=== PATIENT | male | born 1960 | race Caucasian/White ===

== ENCOUNTER → 2018-01-29 | Outpatient (CLI) | payer OTHER | LOC: M RAD 10:11 | DX: N50.819 Testicular pain, unspecified (principal) | CPT/HCPCS: 76870 ==

== ENCOUNTER 2018-07-26 18:56 | Emergency (ER) | payer OTHER ==
[~2018-07-26] VITALS: Ht 188 cm; Wt 75.0 kg
[~2018-07-26 18:56] MED LIST: /ACETCOD2T PO; /HYDR10T PO; /INSULEV SQ; /ONDA4TA PO; /PREG50CA PO; ACET1TAB16 PO; ACTO30TA15 PO; AMBI10TA PO; ASPI1TAB PO; ASPI81TA7 PO; ASPI81TA83 PO; CLINDAMYCIN OR; CRES10TA32 PO; CRES5TAB PO; CYMB1CAP PO; CYMB60CA3 PO; GABAPENTIN PO; HYDR50TA8 PO; HYDRO50TAB PO; INSUH10VL SC; INSULANT SC; LISI-542 PO; LISI5TAB PO; NEUR300C PO; NICODIS TD; NOVOLOG100 MG/ML SC; REGL5TAB2 PO; TYLENOL #3 OR; VIST50CA PO; ZOFR4TAB16 PO; [UNRECOGNIZED DRUG - REMARK]
[2018-07-26] MEDS ORDERED: TOUJ1.2I (19:02)
[2018-07-26] MEDS ORDERED: DULO30CA PO (19:02)
[2018-07-26] MEDS ORDERED: ZOLP10TA2 (19:03)
[2018-07-26] MEDS ORDERED: ATOR1TAB19 (19:03)
[2018-07-26] MEDS ORDERED: NS 1,000 ML IV ONE ×3 (19:30→23:15)
[2018-07-26] MEDS ORDERED: HumuLIN R (REGULAR) INSULIN (NovoLIN R) **100U/ML** PER UNIT IV ONE (19:30)
--- NOTE | 2018-07-26 19:47 | REP ---
Clinical: Orbital headache and dizziness . Comparison: None . Findings: The ventricles, sulci, and cisterns are normal in position and appearance. Salazar-white differentiation is maintained. No acute intracranial hemorrhage, mass/mass effect, pathology or trauma/injury. No evidence for acute infarction. No extra-axial fluid collection. Calvarium is intact. Mild mucoperiosteal changes to the ethmoid sinuses. Impression: No evidence for acute intracranial pathology or trauma/injury. Electronically Signed by Neri Acosta MD 07/26/2018 07:38 P
[2018-07-26 19:56] LABS: VENOUS BASE EXCESS -2.9 (-2.0-2.0); VENOUS HCO3 23.2 MEQ/L (23.0-27.0); VENOUS O2 SATURATION 41.6 % (60.0-80.0); VENOUS PARTIAL PRESSURE CO2 45.4 mmHg (38.0-50.0); VENOUS PARTIAL PRESSURE O2 26.6 mmHg (30.0-50.0); VENOUS PH 7.327 UNITS (7.330-7.430); VENOUS STANDARD HCO3 20.6 MEQ/L; VENOUS TOTAL CO2 24.6 MEQ/L (24.0-28.0)
[2018-07-26 20:03] LABS: BASO # 0.1 10^3/uL (0.0-0.2); BASO % 0.8 % (0.0-1.0); EOS # 0.2 10^3/uL (0.0-0.50); EOS % 2.6 % (0.0-3.0); HEMATOCRIT 43.7 % (42.0-52.0); HEMOGLOBIN 14.8 g/dl (13.5-17.5); LYMPH # 1.9 10^3/uL (1.5-4.5); MEAN CORPUSCULAR HGB CONC 33.9 g/dl (32.0-36.5); MEAN CORPUSCULAR VOLUME 88.6 fl (80.0-96.0); MONO # 0.4 10^3/uL (0.0-0.8); MONO % 6.6 % (0.0-5.0); NEUTROPHILS # 3.7 10^3/uL (1.8-7.7); NEUTROPHILS % 59.7 % (36.0-66.0); PLATELET COUNT, AUTOMATED 288 10^3/uL (150-450); RED BLOOD COUNT 4.93 10^6/uL (4.30-6.10); WHITE BLOOD COUNT 6.2 10^3/uL (4.0-10.0)
--- NOTE | 2018-07-26 20:11 | REP ---
Clinical: Back pain . Comparison: 03/09/2015 . Technique: PA and lateral. Findings: The mediastinum and cardiac silhouette are normal. The lung atkinson are clear and without acute consolidation, effusion, or pneumothorax. The skeletal structures are intact and normal. Impression: 1. No acute cardiopulmonary process. Electronically Signed by Neri Acosta MD 07/26/2018 08:03 P
[2018-07-26 20:37] LABS: BLOOD UREA NITROGEN 12 MG/DL (7-18); CALCIUM LEVEL 8.8 MG/DL (8.5-10.1); CARBON DIOXIDE LEVEL 27 MEQ/L (21-32); CHLORIDE LEVEL 100 MEQ/L (98-107); CK-MB VALUE MASS < 1.0 NG/ML (<3.6); CPK CREATINE PHOSPHOKINASE 47 U/L (39-308); CREATININE FOR GFR 0.86 MG/DL (0.70-1.30); ETHYL ALCOHOL (ETHANOL) < 0.003 % (0.000-0.010); GLOMERULAR FILTRATION RATE > 60.0 (>56); GLUCOSE, FASTING 362 MG/DL (70-100); MB/CK RELATIVE INDEX 2.13 (< OR =4); POTASSIUM SERUM 4.5 MEQ/L (3.5-5.1); SODIUM LEVEL 135 MEQ/L (136-145); TROPONIN I < 0.02 NG/ML (< 0.10)
[2018-07-26] MEDS ORDERED: MECLIZINE 25 MG TABLET PO ONE (20:45)
[2018-07-26] MEDS ORDERED: METOCLOPRAMIDE INJ 10MG/2ML VIAL (J2765) IV ONE (20:45)
[2018-07-26] MEDS ORDERED: diazePAM 5 MG TAB PO ONE (22:00)
[2018-07-26 22:10] LABS: HEMOGLOBIN A1c 12.4 %
[2018-07-26 23:36] VITALS: BP 148/86
[2018-07-27] MEDS ORDERED: MECL-68 PO (00:02)
[2018-07-27] MEDS ORDERED: REGL10TA6 PO (00:02)
[2018-07-27] MEDS ORDERED: VALI5TAB PO (00:02)
--- NOTE | 2018-07-27 20:01 | ECGEPIP ---
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
== END 2018-07-27 00:12 | disposition home or self-care (01) ==
LOC: M ED 18:56
DX: I95.1 Orthostatic hypotension (principal); E86.0 Dehydration; E10.65 Type 1 diabetes mellitus with hyperglycemia; I10 Essential (primary) hypertension; E78.5 Hyperlipidemia, unspecified; G89.29 Other chronic pain; M54.9 Dorsalgia, unspecified; E10.40 Type 1 diabetes mellitus with diabetic neuropathy, unspecified; K31.84 Gastroparesis; Z72.0 Tobacco use; Z79.82 Long term (current) use of aspirin; Z79.4 Long term (current) use of insulin; Z79.899 Other long term (current) drug therapy; Z88.8 Allergy status to other drugs, medicaments and biological substances
CPT/HCPCS: 70450; 71046; 80048; 80320; 81001; 82550; 82553; 82803; 83036; 85025; 93005; 96361; 96374; 96375; 99284; J2765

== ENCOUNTER 2019-05-11 19:34 | Inpatient (IN) | payer OTHER ==
[~2019-05-11] VITALS: Ht 188 cm; Wt 75.0 kg
[~2019-05-11 19:34] MED LIST changes: -/ACETCOD2T PO; -/INSULEV SQ; -/ONDA4TA PO; -/PREG50CA PO; +ACET1TAB15 PO; -ASPI1TAB PO; +ASPI81TA26 PO; +ATOR1TAB19 PO; +CRES10TA PO; -CRES10TA32 PO; +DULO30CA9 PO; +HYDR-4274 PO; -HYDRO50TAB PO; +LEVE0.01 SQ; +LYRI50CA PO; +MECL-68 PO; +NICO21DI34 TD; -NICODIS TD; +ONDA-1 PO; +REGL10TA6 PO; +TOUJ1.2I; +VALI5TAB PO; +ZOLP10TA2
[2019-05-11 20:16] LABS: VENOUS BASE EXCESS -14.7 (-2.0-2.0); VENOUS HCO3 13.9 MEQ/L (23.0-27.0); VENOUS O2 SATURATION 55.2 % (60.0-80.0); VENOUS PARTIAL PRESSURE CO2 41.9 mmHg (38.0-50.0); VENOUS PARTIAL PRESSURE O2 30.8 mmHg (30.0-50.0); VENOUS PH 7.139 UNITS (7.330-7.430); VENOUS STANDARD HCO3 12.8 MEQ/L; VENOUS TOTAL CO2 15.2 MEQ/L (24.0-28.0)
[2019-05-11 20:22] LABS: BASO % 0.5 % (0.0-1.0); EOS # 0.1 10^3/uL (0.0-0.5); EOS % 0.8 % (0.0-3.0); HEMATOCRIT 48.4 % (42.0-52.0); LYMPH # 2.1 10^3/uL (1.5-5.0); LYMPH % 26.6 % (24.0-44.0); MEAN CORPUSCULAR HEMOGLOBIN 30.2 pg (27.0-33.0); MEAN CORPUSCULAR HGB CONC 33.1 g/dl (32.0-36.5); MEAN CORPUSCULAR VOLUME 91.5 fl (80.0-96.0); MONO # 0.6 10^3/uL (0.0-0.8); MONO % 7.3 % (0.0-5.0); NEUTROPHILS % 64.4 % (36.0-66.0); PLATELET COUNT, AUTOMATED 393 10^3/uL (150-450); RED BLOOD COUNT 5.29 10^6/uL (4.30-6.10); WHITE BLOOD COUNT 7.8 10^3/uL (4.0-10.0)
[2019-05-11] MEDS ORDERED: NS 1,000 ML IV ONE (20:30)
--- NOTE | 2019-05-11 20:36 | ECGEPIP ---
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
[2019-05-11 20:43] LABS: ACETONE/KETONE > 46.00 MG/DL (<2.81); ALBUMIN 4.5 GM/DL (3.2-5.2); ALT/SGPT 20 U/L (12-78); BILIRUBIN,TOTAL 0.6 MG/DL (0.2-1.0); BLOOD UREA NITROGEN 18 MG/DL (7-18); CALCIUM LEVEL 9.4 MG/DL (8.5-10.1); CARBON DIOXIDE LEVEL 16 MEQ/L (21-32); CHLORIDE LEVEL 101 MEQ/L (98-107); CREATININE FOR GFR 1.21 MG/DL (0.70-1.30); GLOMERULAR FILTRATION RATE > 60.0 (>56); GLUCOSE, FASTING 318 MG/DL (70-100); LIPASE 52 U/L (73-393); POTASSIUM SERUM 4.9 MEQ/L (3.5-5.1); SODIUM LEVEL 132 MEQ/L (136-145); TOTAL PROTEIN 7.5 GM/DL (6.4-8.2)
[2019-05-11 21:22] LABS: HEMOGLOBIN A1c 12.5 %
[2019-05-11 21:26] LABS: CK-MB VALUE MASS < 1.0 NG/ML (<3.6); CPK CREATINE PHOSPHOKINASE 45 U/L (39-308); MB/CK RELATIVE INDEX 2.22 (< OR =4); TROPONIN I < 0.02 NG/ML (< 0.10)
[2019-05-11] MEDS ORDERED: INSULIN HUMAN REGULAR 100 UNITS in NS 99 ML IV SCH (21:43)
[2019-05-11] MEDS ORDERED: D5W/0.45% SODIUM CHLORIDE 1,000 ML IV SCH ×2 (21:43→22:57)
[2019-05-11] MEDS ORDERED: INSULIN IV RATE CHANGE DOCUMENTATION ML/HR XX SCH (21:45)
[2019-05-11] MEDS ORDERED: MECL-86 PO (22:13)
[2019-05-11] MEDS ORDERED: BASA100I SC (22:13)
[2019-05-11] MEDS ORDERED: ACETAMINOPHEN TAB 650MG DOSE (2X325MG) PO PRN (22:30)
--- NOTE | 2019-05-11 23:05 | HPEPDOC ---
[facility] Medical History & Physical Date of Admission May 11, 2019 Date of Service: May 11, 2019 Primary Care Physician: Kory De Oliveira Attending Physician: SARAH SU MD History and Physical TIME OF SERVICE: 1035PM CC time 60 min CHIEF COMPLAINT: not feeling well HISTORY OF PRESENT ILLNESS: This is a 58-year-old male who presents with complaints of not feeling well, th at began earlier on today. Specifically, he has a runny nose, chest pain, back pain, headache, abdominal pain with nonbloody emesis, chills increased thirst, and increased urination. He denies having a fever, denies having diarrhea, denies having constipation, denies missing any of his doses of insulin or having any sick contacts. He has been admitted for DKA about 4 or 5 times in the past. Per discussion with the ED attending his labs appear to be consistent with DKA. History of insulin drip and IV fluids. REVIEW OF SYSTEMS: 12 point review of systems negative except as listed in HPI PAST MEDICAL/ SURGICAL HISTORY: Poorly controlled IDDM1 complicated by neuropathy and gastroparesis Dyslipidemia. Insomnia Chronic back pain status post laminectomy. Status post bilateral hernia repair SOCIAL HISTORY: Smoker FAMILY HISTORY: Leukemia. Bladder cancer ALLERGIES: Please see below. HOME MEDICATIONS: Please see below. PHYSICAL EXAMINATION: VITAL SIGNS: Please see below. GENERAL APPEARANCE: Slim build, well-developed, not in apparent distress HEENT: Normocephalic, atraumatic, mucous membranes dry CARDIOVASCULAR: Regular rate and rhythm. No murmurs, rubs or gallops LUNGS: Clear to auscultation bilaterally on room air ABDOMEN: Bowel sounds hypoactive. The abdomen is soft and nontender on palpation MUSCULOSKELETAL: Range of motion is intact in all 4 extremities is no lower extremity edema NEUROLOGICAL: Cranial nerves II-12 grossly intact. Speech is not dysarthric PSYCHIATRIC: Alert and oriented to person, place and time, able to understand and follow commands LABORATORY DATA: See below. IMAGING: Chest x-ray unremarkable but the final read is pending. ASSESSMENT: Mr. Castaneda is a 58-year-old male with a past medical history of poorly controlled insulin-dependent diabetes, chronic hypertension, chronic back pain, and insomnia who is admitted for management of of DKA. PLAN: 1. DKA May be due to an upper respiratory tract infection vs noncompliance PH is 7.139, glucose is 318, carbon dioxide of 16, anion gap is 15, urine is positive for ketones, beta hydroxybutyrate > 46 His WBC count, chest x-ray, and UA are revealing. Plan: Admit to ICU for management of DKA/follow-up influenza panel, serum ETHO, Drug screen & blood cx/ NPO pending resolution of DKA / Insulin drip per protocol/ IVF / f/u accuchecks Q1H, BMP Q4H, venous PH Q4H, osmol Q4H, Mag Q4H, phosp Q4H / f/u A1C / hold home anti-glycemic agents / DM education 2. Chest Pain / Back pain Plan: telemetry f/u Trop and EKG /ASA 3.Pseudohyponatremia related to hypoglycemia. Plan: Follow-up repeat BMP after IV fluids 4. Tobacco abuse. Plan: Refused nicotine patch/smoking cessation education 5. Chronic back pain Plan: Resume home meds after after DKA has resolved DVT prophylaxis with Lovenox. Disposition pending clinical course LATE ENTRY #Hypophosphatemia repeat BMP reviewed Plan: replete lytes & f/u BMP at 3AM Vital Signs Vital Signs Date Time Temp Pulse Resp B/P (MAP) Pulse Ox O2 Delivery O2 Flow Rate FiO2 05/11/19 22:00 78 112/58 (76) 100 Room Air 05/11/19 19:34 98.0 18 Laboratory Data Labs 24H Laboratory Tests 2 05/11/19 19:57: Immature Granulocyte % (Auto) 0.4, White Blood Count 7.8, Red Blood Count 5.29, Hemoglobin 16.0, Hematocrit 48.4, Mean Corpuscular Volume 91.5, Mean Corpuscular Hemoglobin 30.2, Mean Corpuscular Hemoglobin Concent 33.1, Red Cell Distribution Width 12.4, Platelet Count 393, Neutrophils (%) (Auto) 64.4, Lymphocytes (%) (Auto) 26.6, Monocytes (%) (Auto) 7.3H, Eosinophils (%) (Auto) 0.8, Basophils (%) (Auto) 0.5, Neutrophils # (Auto) 5.0, Lymphocytes # (Auto) 2.1, Monocytes # (Auto) 0.6, Eosinophils # (Auto) 0.1, Basophils # (Auto) 0.0, Nucleated Red Blood Cells % (auto) 0.0, Urine Color STRAW, Urine Appearance CLEAR, Urine pH 5.0, Urine Specific [place] 1.024, Urine Protein 1+H, Urine Glucose (UA) 3+H, Urine Ketones 2+H, Urine Blood NEGATIVE, Urine Nitrite NEGATIVE, Urine Bilirubin NEGATIVE, Urine Urobilinogen 0.2, Urine Leukocyte Esterase NEGATIVE, Urine WBC (Auto) 1, Urine RBC (Auto) 2, Urine Hyaline Casts (Auto) 7, Urine Bacteria (Auto) NEGATIVE, Urine Squamous Epithelial Cells 0, Urine Sperm (Auto) , Blood Gas Bicarbonate Standard 12.8, Venous Blood pH 7.139L, Venous Blood Partial Pressure CO2 41.9, Venous Blood Partial Pressure O2 30.8, Venous Blood Total Carbon Dioxide 15.2L, Venous Blood HCO3 13.9L, Venous Blood Oxygen Saturation 55.2L, Venous Blood Base Excess -14.7L, Anion Gap 15, Glomerular Filtration Rate > 60.0, Estimated Mean Plasma Glucose 312H, Hemoglobin A1c 12.5, Blood Urea Nitrogen 18, Creatinine 1.21, Sodium Level 132L, Potassium Level 4.9, Chloride Level 101, Carbon Dioxide Level 16L, Calcium Level 9.4, Aspartate Amino Transf (AST/SGOT) 7, Alanine Aminotransferase (ALT/SGPT) 20, Total Creatine Kinase 45, Alkaline Phosphatase 95, Total Bilirubin 0.6, Total Protein 7.5, Albumin 4.5, Creatine Kinase MB < 1.0, Creatine Kinase MB Relative Index 2.22, Troponin I < 0.02, Albumin/Globulin Ratio 1.50, Lipase 52L, B-Hydroxybutyrate > 46.00H 05/11/19 20:00: Bedside Glucose (Misc Panel) 316H 05/11/19 21:29: Bedside Glucose (Misc Panel) 287H 05/11/19 22:05: Bedside Glucose (Misc Panel) 273H CBC/BMP Laboratory Tests 05/11/19 19:57 Red Blood Count 5.29, Mean Corpuscular Volume 91.5, Mean Corpuscular Hemoglobin 30.2, Mean Corpuscular Hemoglobin Concent 33.1, Red Cell Distribution Width 12.4, Neutrophils (%) (Auto) 64.4, Lymphocytes (%) (Auto) 26.6, Monocytes (%) (Auto) 7.3 H, Eosinophils (%) (Auto) 0.8, Basophils (%) (Auto) 0.5, Neutrophils # (Auto) 5.0, Lymphocytes # (Auto) 2.1, Monocytes # (Auto) 0.6, Eosinophils # (Auto) 0.1, Basophils # (Auto) 0.0, Calcium Level 9.4, Aspartate Amino Transf (AST/SGOT) 7, Alanine Aminotransferase (ALT/SGPT) 20, Total Creatine Kinase 45, Alkaline Phosphatase 95, Total Bilirubin 0.6, Total Protein 7.5, Albumin 4.5 Home Medications Scheduled Aspirin (Aspirin EC) 81 Mg Tab, 81 MG PO DAILY Atorvastatin Calcium (Atorvastatin Calcium) 10 Mg Tab, 10 MG PO DAILY Duloxetine Hcl (Cymbalta) 60 Mg Cap, 60 MG PO DAILY Duloxetine Hcl (Duloxetine HCl) 30 Mg Cap, 30 MG PO QPM Insulin Glargine,Hum.rec.anlog (Basaglar Kwikpen U-100) 100 Unit/1 Ml Insuln.pe n, 65 UNIT SC DAILY Insulin Human Lispro (Novolog) 100 U/Ml Inj, 1 DOSE SC AC PER SLIDING SCALE Lisinopril (Lisinopril) 5 Mg Tab, 5 MG PO DAILY Metoclopramide Hcl (Reglan) 5 Mg Tab, 5 MG PO QID Zolpidem Tartrate (Ambien) 10 Mg Tab, 10 MG PO QHS Scheduled PRN Acetaminophen with Codeine (Acetaminophen-Cod #3 Tablet) 1 Tab Tab, 2 TAB PO Q4H PRN for PAIN Meclizine HCl (Meclizine HCl) 25 Mg Tablet, 25 MG PO TID PRN for NAUSEA OR VOMITING Allergies Coded Allergies: pregabalin (Verified Allergy, Unknown, 05/11/19) A-FIB/CHADSVASC A-FIB History Current/History of A-Fib/PAF?: No Current PO Anticoag Therapy: No SARAH SU MD May 11, 2019 23:05
[2019-05-11 23:13] LABS: VENOUS HCO3 13.1 MEQ/L (23.0-27.0); VENOUS O2 SATURATION 61.7 % (60.0-80.0); VENOUS PH 7.111 UNITS (7.330-7.430); VENOUS STANDARD HCO3 12.1 MEQ/L; VENOUS TOTAL CO2 14.4 MEQ/L (24.0-28.0)
[2019-05-11] MEDS ORDERED: ASPIRIN 81 MG CHEW TABLET PO ONE (23:15)
[2019-05-12] VITALS (11 sets, daily range): BP systolic 84–123; BP diastolic 54–76
[2019-05-12 00:19] LABS: BLOOD UREA NITROGEN 17 MG/DL (7-18); CALCIUM LEVEL 8.6 MG/DL (8.5-10.1); CARBON DIOXIDE LEVEL 19 MEQ/L (21-32); CHLORIDE LEVEL 108 MEQ/L (98-107); CREATININE FOR GFR 1.07 MG/DL (0.70-1.30); GLOMERULAR FILTRATION RATE > 60.0 (>56); GLUCOSE, FASTING 233 MG/DL (70-100); PHOSPHORUS LEVEL 1.9 MG/DL (2.5-4.9); POTASSIUM SERUM 4.2 MEQ/L (3.5-5.1); SODIUM LEVEL 136 MEQ/L (136-145); TROPONIN I < 0.02 NG/ML (< 0.10)
[2019-05-12] MEDS ORDERED: DEXTROSE 50% 50 ML SYRINGE IV PRN (00:45)
[2019-05-12] MEDS ORDERED: GLUCAGON FOR INJ 1 MG VIAL (J1610) SC PRN (00:45)
[2019-05-12] MEDS ORDERED: GLUCOSE 4 GM CHEW TABLET PO PRN (00:45)
[2019-05-12] MEDS ORDERED: MECLIZINE 25 MG TABLET PO PRN (01:00)
[2019-05-12] MEDS ORDERED: INSULIN HUMAN REGULAR 100 UNITS in NS 99 ML IV SCH (01:00)
[2019-05-12] MEDS: INSULIN IV RATE CHANGE DOCUMENTATION ML/HR XX SCH ×3 (01:16→06:00)
[2019-05-12 01:45] LABS: OSMOLALITY SERUM 296 MOSM/KG (275-295)
[2019-05-12] MEDS ORDERED: POTASSIUM PHOSPHATE INJ 30 MMOL in D5W 500 ML IV ONE (02:15)
[2019-05-12 03:07] LABS: VENOUS BASE EXCESS -9.1 (-2.0-2.0); VENOUS HCO3 16.3 MEQ/L (23.0-27.0); VENOUS O2 SATURATION 83.4 % (60.0-80.0); VENOUS PARTIAL PRESSURE O2 46.9 mmHg (30.0-50.0); VENOUS PH 7.298 UNITS (7.330-7.430); VENOUS TOTAL CO2 17.3 MEQ/L (24.0-28.0)
[2019-05-12 03:17] LABS: BLOOD UREA NITROGEN 18 MG/DL (7-18); CARBON DIOXIDE LEVEL 18 MEQ/L (21-32); CHLORIDE LEVEL 111 MEQ/L (98-107); CREATININE FOR GFR 0.86 MG/DL (0.70-1.30); GLOMERULAR FILTRATION RATE > 60.0 (>56); GLUCOSE, FASTING 174 MG/DL (70-100); MAGNESIUM LEVEL 1.9 MG/DL (1.8-2.4); POTASSIUM SERUM 3.7 MEQ/L (3.5-5.1); SODIUM LEVEL 139 MEQ/L (136-145); TROPONIN I < 0.02 NG/ML (< 0.10)
[2019-05-12] MEDS ORDERED: KCL 20MEQ IN D5/0.45NS 1000ML 1,000 ML IV SCH (04:00)
[2019-05-12 04:25] LABS: ETHYL ALCOHOL (ETHANOL) < 0.003 % (0.000-0.010)
[2019-05-12 04:40] LABS: AMPHETAMINES LEVEL URINE NEGATIVE (NEGATIVE); BARBITURATES URINE NEGATIVE (NEGATIVE); BENZODIAZEPINES URINE NEGATIVE (NEGATIVE); CANNABINOIDS URINE NEGATIVE (NEGATIVE); COCAINE METABOLITE URINE NEGATIVE (NEGATIVE); METHADONE URINE NEGATIVE (NEGATIVE); OPIATES URINE NEGATIVE (NEGATIVE); PHENCYCLIDINE URINE NEGATIVE (NEGATIVE)
[2019-05-12] MEDS: ACETAMINOPH W/CODEINE #3 TAB UD PO PRN ×3 (05:05→23:59)
[2019-05-12] MEDS: ENOXAPARIN 40 MG/0.4 ML SYRINGE (J1650) SC SCH (06:23)
[2019-05-12 07:00] LABS: VENOUS BASE EXCESS -7.1 (-2.0-2.0); VENOUS HCO3 19.8 MEQ/L (23.0-27.0); VENOUS O2 SATURATION 82.1 % (60.0-80.0); VENOUS PARTIAL PRESSURE CO2 45.3 mmHg (38.0-50.0); VENOUS PH 7.259 UNITS (7.330-7.430); VENOUS STANDARD HCO3 18.4 MEQ/L; VENOUS TOTAL CO2 21.2 MEQ/L (24.0-28.0)
[2019-05-12 07:06] LABS: HEMATOCRIT 38.5 % (42.0-52.0); MEAN CORPUSCULAR HEMOGLOBIN 30.2 pg (27.0-33.0); MEAN CORPUSCULAR HGB CONC 33.8 g/dl (32.0-36.5); MEAN CORPUSCULAR VOLUME 89.5 fl (80.0-96.0); WHITE BLOOD COUNT 5.2 10^3/uL (4.0-10.0)
[2019-05-12 07:11] LABS: PLATELET COUNT, AUTOMATED 269 10^3/uL (150-450)
[2019-05-12 07:42] LABS: OSMOLALITY SERUM 294 MOSM/KG (275-295)
[2019-05-12 07:47] LABS: BLOOD UREA NITROGEN 13 MG/DL (7-18); CALCIUM LEVEL 8.4 MG/DL (8.5-10.1); CARBON DIOXIDE LEVEL 22 MEQ/L (21-32); CHLORIDE LEVEL 108 MEQ/L (98-107); GLOMERULAR FILTRATION RATE > 60.0 (>56); GLUCOSE, FASTING 250 MG/DL (70-100); MAGNESIUM LEVEL 1.8 MG/DL (1.8-2.4); PHOSPHORUS LEVEL 3.4 MG/DL (2.5-4.9); POTASSIUM SERUM 4.3 MEQ/L (3.5-5.1); SODIUM LEVEL 137 MEQ/L (136-145); TROPONIN I < 0.02 NG/ML (< 0.10)
--- NOTE | 2019-05-12 07:54 | REP ---
Portable chest, nine L E p.m., single AP view with the patient sitting: Comparison is the PA and lateral chest dated 07/26/2018. The lung atkinson are clear. The cardiac size is normal. The stevie, mediastinum, and skeletal structures are unremarkable. Impression: Negative portable chest. There is no interval change. Electronically Signed by Tio Meadows MD 05/12/2019 07:45 A
[2019-05-12] MEDS: LISINOPRIL 5 MG TAB PO SCH (09:00)
--- NOTE | 2019-05-12 09:38 | IPNPDOC ---
Subjective Date Seen The patient was seen on 05/12/19. Subjective Chief Complaint/HPI Patient feeling better, lying in bed, offers no new complaints at the present time General: Denies: ROS Unobtainable, Chills, Night Sweats, Fatigue, Malaise, Normal Appetite, Other Symptoms Constitutional: Denies: Chills, Fever, Malaise, Night Sweats, Weakness, Fatigue, Weight Loss, Lethargy, Other Pulmonary: Denies: Dyspnea, Cough, Pleuritic Chest Pain, Other Symptoms Cardiovascular: Denies: Chest Pain, Palpitations, Orthopnea, Paroxysmal Noc. Dyspnea, Edema, Lt Headedness, Other Symptoms Gastrointestinal: Denies: Nausea, Vomiting, Abdominal Pain, Diarrhea, Constipation, Melena, Hematochezia, Other Symptoms Hematologic: Denies: Bruising, Bleeding Excessively, Petecchia, Purpura, Enlarged Lymph Nodes, Other Hematologic Endocrine: Denies: Polydipsia, Polyphagia, Polyuria, Heat Intolerance, Cold Intolerance, Other Endocrine Sx Musculoskeletal: Denies: Neck Pain, Back Pain, Shoulder Pain, Arm Pain, Hand Pain, Leg Pain, Foot Pain, Joint Pain, Muscle Pain, Spasms, Other Symptoms Neurological: Denies: Weakness, Numbness, Incoordination, Change in speech, Confusion, Seizures, Other Symptoms Objective Physical Examination General Exam: Positive: Alert, Cooperative Eye Exam: Positive: PERRLA, Conjunctiva & lids normal ENT Exam: Positive: Atraumatic Neck Exam: Positive: Supple Chest Exam: Positive: Clear to auscultation, Normal air movement Heart Exam: Positive: Rate Normal, Normal S1, Normal S2 Abdomen Exam: Positive: Normal bowel sounds, Soft, Tenderness Extremity Exam: Positive: Normal pulses Skin Exam: Positive: Nl turgor and temperature Neuro Exam: Positive: Strength at 5/5 X4 ext, Sensation Intact Assessment /Plan Problems (1) DKA (diabetic ketoacidoses) Status: Acute Problem Text: Patient's anion gap is closing and B hydroxy butyrate level is decreasing progressively Continue IV fluids, D5 half-normal saline at the present rate Continue insulin and 1 unit per hour until the blood level is under 200 for 2-3 hours Will restart home dose of levemir to 65 units daily at bedtime Started on diabetic diet Will change insulin to fingerstick coverage every before meals and at bedtime t his afternoon Continue home meds (2) Gastroparesis Onset Date: 01/19/2014 Status: Chronic Problem Text: Continue home meds (3) Diabetic neuropathy Onset Date: 01/19/2014 Status: Chronic Problem Text: Continue home meds (4) Hypercholesteremia Onset Date: 01/19/2014 Status: Chronic Problem Text: Continue home meds Plan/VTE VTE Prophylaxis Ordered?: Yes VS, I&O, 24H, Fishbone Vital Signs/I&O Vital Signs Date Time Temp Pulse Resp B/P (MAP) Pulse Ox O2 Delivery O2 Flow Rate FiO2 05/12/19 05:35 16 05/12/19 04:00 97.0 66 107/67 (80) 98 05/11/19 23:30 Room Air I&O- Last 24 Hours up to 6 AM 05/12/19 06:00 Intake Total 2610.0 ml Output Total 0 ml Balance 2610.0 ml Laboratory Data 24H LABS Laboratory Tests 2 05/11/19 19:57: Immature Granulocyte % (Auto) 0.4, White Blood Count 7.8, Red Blood Count 5.29, Hemoglobin 16.0, Hematocrit 48.4, Mean Corpuscular Volume 91.5, Mean Corpuscular Hemoglobin 30.2, Mean Corpuscular Hemoglobin Concent 33.1, Red Cell Distribution Width 12.4, Platelet Count 393, Neutrophils (%) (Auto) 64.4, Lymphocytes (%) (Auto) 26.6, Monocytes (%) (Auto) 7.3H, Eosinophils (%) (Auto) 0.8, Basophils (%) (Auto) 0.5, Neutrophils # (Auto) 5.0, Lymphocytes # (Auto) 2.1, Monocytes # (Auto) 0.6, Eosinophils # (Auto) 0.1, Basophils # (Auto) 0.0, Nucleated Red Blood Cells % (auto) 0.0, Urine Color STRAW, Urine Appearance CLEAR, Urine pH 5.0, Urine Specific [place] 1.024, Urine Protein 1+H, Urine Glucose (UA) 3+H, Urine Ketones 2+H, Urine Blood NEGATIVE, Urine Nitrite NEGATIVE, Urine Bilirubin NEGATIVE, Urine Urobilinogen 0.2, Urine Leukocyte Esterase NEGATIVE, Urine WBC (Auto) 1, Urine RBC (Auto) 2, Urine Hyaline Casts (Auto) 7, Urine Bacteria (Auto) NEGATIVE, Urine Squamous Epithelial Cells 0, Urine Sperm (Auto) , Blood Gas Bicarbonate Standard 12.8, Venous Blood pH 7.139L, Venous Blood Partial Pressure CO2 41.9, Venous Blood Partial Pressure O2 30.8, Venous Blood Total Carbon Dioxide 15.2L, Venous Blood HCO3 13.9L, Venous Blood Oxygen Saturation 55.2L, Venous Blood Base Excess -14.7L, Anion Gap 15, Glomerular Filtration Rate > 60.0, Estimated Mean Plasma Glucose 312H, Hemoglobin A1c 12.5, Blood Urea Nitrogen 18, Creatinine 1.21, Sodium Level 132L, Potassium Level 4.9, Chloride Level 101, Carbon Dioxide Level 16L, Calcium Level 9.4, Aspartate Amino Transf (AST/SGOT) 7, Alanine Aminotransferase (ALT/SGPT) 20, Total Creatine Kinase 45, Alkaline Phosphatase 95, Total Bilirubin 0.6, Total Protein 7.5, Albumin 4.5, Creatine Kinase MB < 1.0, Creatine Kinase MB Relative Index 2.22, Troponin I < 0.02, Albumin/Globulin Ratio 1.50, Lipase 52L, Urine Amphetamines Screen NEGATIVE, Urine Benzodiazepines Screen NEGATIVE, Urine Opiates Screen NEGATIVE, Urine Methadone Screen NEGATIVE, Urine Barbiturates Screen NEGATIVE, Urine Phencyclidine Screen NEGATIVE, Urine Cocaine Metabolite Screen NEGATIVE, Urine Cannabinoids Screen NEGATIVE, Ethyl Alcohol Level < 0.003, B-Hydroxybutyrate > 46.00H 05/11/19 20:00: Bedside Glucose (Misc Panel) 316H 05/11/19 21:29: Bedside Glucose (Misc Panel) 287H 05/11/19 22:05: Bedside Glucose (Misc Panel) 273H 05/11/19 23:07: Bedside Glucose (Misc Panel) 250H 05/11/19 23:09: Blood Gas Puncture Site UNKNOWN, Blood Gas Bicarbonate Standard 12.1, Venous Blood pH 7.111L, Venous Blood Partial Pressure CO2 42.0, Venous Blood Partial Pressure O2 37.0, Venous Blood Total Carbon Dioxide 14.4L, Venous Blood HCO3 13.1L, Venous Blood Oxygen Saturation 61.7, Venous Blood Base Excess -16.0L 05/11/19 23:40: Anion Gap 9, Glomerular Filtration Rate > 60.0, Osmolality 296H, Blood Urea Nitrogen 17, Creatinine 1.07, Sodium Level 136, Potassium Level 4.2, Chloride Level 108H, Carbon Dioxide Level 19L, Calcium Level 8.6, Phosphorus Level 1.9L, Magnesium Level 2.0, Troponin I < 0.02, B-Hydroxybutyrate 31.60H 05/12/19 00:16: Bedside Glucose (Misc Panel) 223H 05/12/19 01:09: Bedside Glucose (Misc Panel) 159H 05/12/19 02:10: Bedside Glucose (Misc Panel) 163H 05/12/19 02:45: Anion Gap 10, Glomerular Filtration Rate > 60.0, Osmolality 288, Blood Urea Nitrogen 18, Creatinine 0.86, Sodium Level 139, Potassium Level 3.7, Chloride Level 111H, Carbon Dioxide Level 18L, Calcium Level 8.0L, Phosphorus Level 2.0L, Magnesium Level 1.9, Troponin I < 0.02 05/12/19 02:46: Blood Gas Puncture Site UNKNOWN, Blood Gas Bicarbonate Standard 17.0, Venous Blood pH 7.298L, Venous Blood Partial Pressure CO2 34.0L, Venous Blood Partial Pressure O2 46.9, Venous Blood Total Carbon Dioxide 17.3L, Venous Blood HCO3 16.3L, Venous Blood Oxygen Saturation 83.4H, Venous Blood Base Excess -9.1L 05/12/19 02:53: Bedside Glucose (Misc Panel) 176H 05/12/19 04:08: Bedside Glucose (Misc Panel) 209H 05/12/19 04:54: Bedside Glucose (Misc Panel) 230H 05/12/19 06:16: Bedside Glucose (Misc Panel) 248H 05/12/19 06:54: Nucleated Red Blood Cells % (auto) 0.0, Blood Gas Puncture Site UNKNOWN, Blood Gas Bicarbonate Standard 18.4, Venous Blood pH 7.259L, Venous Blood Partial Pressure CO2 45.3, Venous Blood Partial Pressure O2 47.0, Venous Blood Total Carbon Dioxide 21.2L, Venous Blood HCO3 19.8L, Venous Blood Oxygen Saturation 82.1H, Venous Blood Base Excess -7.1L, Anion Gap 7L, Glomerular Filtration Rate > 60.0, Osmolality 294, Blood Urea Nitrogen 13, Creatinine 0.90, Sodium Level 137, Potassium Level 4.3, Chloride Level 108H, Carbon Dioxide Level 22, Calcium Level 8.4L, Phosphorus Level 3.4#, Magnesium Level 1.8, Troponin I < 0.02 05/12/19 07:32: Bedside Glucose (Misc Panel) 224H 05/12/19 08:08: Bedside Glucose (Misc Panel) 239H CBC/BMP Laboratory Tests 05/11/19 19:57 Red Blood Count 5.29, Mean Corpuscular Volume 91.5, Mean Corpuscular Hemoglobin 30.2, Mean Corpuscular Hemoglobin Concent 33.1, Red Cell Distribution Width 12.4, Neutrophils (%) (Auto) 64.4, Lymphocytes (%) (Auto) 26.6, Monocytes (%) (Auto) 7.3 H, Eosinophils (%) (Auto) 0.8, Basophils (%) (Auto) 0.5, Neutrophils # (Auto) 5.0, Lymphocytes # (Auto) 2.1, Monocytes # (Auto) 0.6, Eosinophils # (Auto) 0.1, Basophils # (Auto) 0.0, Calcium Level 9.4, Aspartate Amino Transf (AST/SGOT) 7, Alanine Aminotransferase (ALT/SGPT) 20, Total Creatine Kinase 45, Alkaline Phosphatase 95, Total Bilirubin 0.6, Total Protein 7.5, Albumin 4.5 05/11/19 23:40 Calcium Level 8.6 05/12/19 02:45 Calcium Level 8.0 L 05/12/19 06:54 Red Blood Count 4.30, Mean Corpuscular Volume 89.5, Mean Corpuscular Hemoglobin 30.2, Mean Corpuscular Hemoglobin Concent 33.8, Red Cell Distribution Width 12.4, Calcium Level 8.4 L CYRUS VALERO MD May 12, 2019 09:38
[2019-05-12] MEDS: DULoxetine 30 MG CAP (CYMBALTA) PO SCH (09:44)
[2019-05-12] MEDS: ATORVASTATIN 10 MG TAB PO SCH (09:45)
[2019-05-12] MEDS: ASPIRIN 81 MG ENTERIC TAB PO SCH (09:45)
[2019-05-12] MEDS: METOCLOPRAMIDE 5 MG TAB PO SCH ×4 (09:47→20:26)
[2019-05-12] MEDS ORDERED: NS 1,000 ML IV SCH (10:15)
[2019-05-12 10:58] LABS: VENOUS BASE EXCESS -8.8 (-2.0-2.0); VENOUS HCO3 17.6 MEQ/L (23.0-27.0); VENOUS O2 SATURATION 83.2 % (60.0-80.0); VENOUS PARTIAL PRESSURE CO2 39.6 mmHg (38.0-50.0); VENOUS PARTIAL PRESSURE O2 48.1 mmHg (30.0-50.0); VENOUS PH 7.265 UNITS (7.330-7.430); VENOUS STANDARD HCO3 17.2 MEQ/L; VENOUS TOTAL CO2 18.8 MEQ/L (24.0-28.0)
[2019-05-12 11:34] LABS: BLOOD UREA NITROGEN 13 MG/DL (7-18); CALCIUM LEVEL 8.4 MG/DL (8.5-10.1); CARBON DIOXIDE LEVEL 22 MEQ/L (21-32); CHLORIDE LEVEL 107 MEQ/L (98-107); CREATININE FOR GFR 0.82 MG/DL (0.70-1.30); GLOMERULAR FILTRATION RATE > 60.0 (>56); GLUCOSE, FASTING 192 MG/DL (70-100); MAGNESIUM LEVEL 1.9 MG/DL (1.8-2.4); POTASSIUM SERUM 3.8 MEQ/L (3.5-5.1); SODIUM LEVEL 135 MEQ/L (136-145)
[2019-05-12 11:38] LABS: PHOSPHORUS LEVEL 2.4 MG/DL (2.5-4.9)
[2019-05-12] MEDS: HumaLOG INSULIN (NovoLOG) PER UNIT SC SCH ×2 (12:20→17:33)
[2019-05-12] MEDS ORDERED: SLF 3 ML SYR IV PRN (14:00)
[2019-05-12] MEDS: SLF 3 ML SYR IV SCH ×2 (14:35→22:11)
[2019-05-12] MEDS ORDERED: HumaLOG INSULIN (NovoLOG) PER UNIT SC SCH (21:00)
[2019-05-12] MEDS ORDERED: LEVEMIR (INSULIN DETEMIR) 1 UNITS/0.01ML SC SCH (21:00)
[2019-05-12] MEDS ORDERED: DULoxetine 30 MG CAP (CYMBALTA) PO SCH (21:00)
[2019-05-12] MEDS ORDERED: zolPIDEM TARTRATE 5 MG TAB PO SCH (21:00)
[2019-05-13 02:00] VITALS: BP 118/60
[2019-05-13 06:00] VITALS: BP 115/71
[2019-05-13 06:07] LABS: BASO % 0.7 % (0.0-1.0); EOS # 0.2 10^3/uL (0.0-0.5); EOS % 3.8 % (0.0-3.0); HEMATOCRIT 37.4 % (42.0-52.0); HEMOGLOBIN 12.7 g/dl (13.5-17.5); LYMPH # 1.6 10^3/uL (1.5-5.0); LYMPH % 35.9 % (24.0-44.0); MEAN CORPUSCULAR HEMOGLOBIN 30.4 pg (27.0-33.0); MEAN CORPUSCULAR VOLUME 89.5 fl (80.0-96.0); MONO # 0.5 10^3/uL (0.0-0.8); MONO % 11.4 % (0.0-5.0); NEUTROPHILS # 2.2 10^3/uL (1.5-8.5); PLATELET COUNT, AUTOMATED 287 10^3/uL (150-450); RED BLOOD COUNT 4.18 10^6/uL (4.30-6.10); WHITE BLOOD COUNT 4.5 10^3/uL (4.0-10.0)
[2019-05-13 06:31] LABS: ALBUMIN 3.2 GM/DL (3.2-5.2); ALT/SGPT 15 U/L (12-78); BILIRUBIN,TOTAL 0.2 MG/DL (0.2-1.0); BLOOD UREA NITROGEN 11 MG/DL (7-18); CALCIUM LEVEL 8.3 MG/DL (8.5-10.1); CARBON DIOXIDE LEVEL 26 MEQ/L (21-32); CHLORIDE LEVEL 108 MEQ/L (98-107); GLOMERULAR FILTRATION RATE > 60.0 (>56); GLUCOSE, FASTING 166 MG/DL (70-100); SODIUM LEVEL 140 MEQ/L (136-145); TOTAL PROTEIN 6.1 GM/DL (6.4-8.2)
[2019-05-13] MEDS: SLF 3 ML SYR IV SCH ×2 (06:36→13:57)
[2019-05-13] MEDS: ENOXAPARIN 40 MG/0.4 ML SYRINGE (J1650) SC SCH (06:36)
[2019-05-13] MEDS: METOCLOPRAMIDE 5 MG TAB PO SCH ×2 (08:10→13:00)
[2019-05-13] MEDS: ASPIRIN 81 MG ENTERIC TAB PO SCH (08:10)
[2019-05-13] MEDS: ATORVASTATIN 10 MG TAB PO SCH (08:11)
[2019-05-13] MEDS: DULoxetine 30 MG CAP (CYMBALTA) PO SCH (08:11)
[2019-05-13 08:12] VITALS: BP 113/68
[2019-05-13] MEDS: LISINOPRIL 5 MG TAB PO SCH (08:12)
[2019-05-13] MEDS: HumaLOG INSULIN (NovoLOG) PER UNIT SC SCH ×2 (08:12→12:00)
[2019-05-13 14:00] VITALS: BP 120/68
--- NOTE | 2019-05-13 15:22 | DS.PDOC ---
Discharge Summary General Date of Admission May 11, 2019 at 22:16 Date of Discharge 05/13/2019 Discharge Summary PROCEDURES PERFORMED DURING STAY: None. ADMITTING DIAGNOSES: 1. DKA. DISCHARGE DIAGNOSES: 1. DKA. COMPLICATIONS/CHIEF COMPLAINT: Dka (Diabetic Ketoacidoses). HISTORY OF PRESENT ILLNESS: 58-year-old male with past medical history of diabetes, was admitted for DKA; he was initially admitted to the ICU with an insulin drip. He remained on the insulin drip until anion gap metabolic acidosis resolved. He was transferred to the regular floor after being placed on long- acting insulin. He reports complete resolution of symptoms, has no complaints at this time, tolerating diet, blood sugars within acceptable range. Patient is ambulating, denies any shortness of breath, chest pain, abdominal pain, nausea, vomiting, diarrhea or constipation. Patient is requesting to go home today. HOSPITAL COURSE: As per above. DISCHARGE MEDICATIONS: Please see below. ALLERGIES: Please see below. PHYSICAL EXAMINATION ON DISCHARGE: VITAL SIGNS: Please see below. GENERAL: No distress HEENT: Normocephalic, atraumatic, moist mucous membranes NECK: Supple CARDIOVASCULAR EXAMINATION: S1, S2, no murmurs appreciated RESPIRATORY EXAMINATION: Clear to auscultation, no wheezing ABDOMINAL EXAMINATION: Soft, nontender, nondistended, positive bowel sounds EXTREMITIES: Range of motion intact SKIN: No rash NEUROLOGICAL EXAMINATION:. Alert and oriented 3, no focal deficits PSYCHIATRIC EXAMINATION: Calm LABORATORY DATA: Please see below. PROGNOSIS: Good ACTIVITY: As tolerated. DIET: Consistent carbs DISCHARGE PLAN: Patient is to follow-up with endocrinology and PCP for further outpatient management and ways to prevent further episodes of DKA. DISPOSITION: Home. DISCHARGE INSTRUCTIONS: 1. Please follow-up with the assisted living administrator and primary care physician within one to 2 weeks. DISCHARGE CONDITION: Stable. TIME SPENT ON DISCHARGE: Greater than 27 minutes minutes. Vital Signs/I&Os Vital Signs Date Time Temp Pulse Resp B/P (MAP) Pulse Ox O2 Delivery O2 Flow Rate FiO2 05/13/19 14:00 97.2 90 16 120/68 (85) 99 05/11/19 23:30 Room Air I&O- Last 24 Hours up to 6 AM 05/13/19 06:00 Intake Total 3736 ml Output Total 1350 ml Balance 2386 ml Laboratory Data Labs 24H Laboratory Tests 2 05/12/19 17:17: Bedside Glucose (Misc Panel) 265H 05/12/19 20:09: Bedside Glucose (Misc Panel) 244H 05/12/19 23:49: Bedside Glucose (Misc Panel) 235H 05/13/19 02:36: Bedside Glucose (Misc Panel) 73 05/13/19 03:16: Bedside Glucose (Misc Panel) 76 05/13/19 04:01: Bedside Glucose (Misc Panel) 135H 05/13/19 05:05: Immature Granulocyte % (Auto) 0.2, White Blood Count 4.5, Red Blood Count 4.18L, Hemoglobin 12.7L, Hematocrit 37.4L, Mean Corpuscular Volume 89.5, Mean Corpuscular Hemoglobin 30.4, Mean Corpuscular Hemoglobin Concent 34.0, Red Cell Distribution Width 12.5, Platelet Count 287, Neutrophils (%) (Auto) 48.0, Lymphocytes (%) (Auto) 35.9, Monocytes (%) (Auto) 11.4H, Eosinophils (%) (Auto) 3.8H, Basophils (%) (Auto) 0.7, Neutrophils # (Auto) 2.2, Lymphocytes # (Auto) 1.6, Monocytes # (Auto) 0.5, Eosinophils # (Auto) 0.2, Basophils # (Auto) 0.0, Nucleated Red Blood Cells % (auto) 0.0, Anion Gap 6L, Glomerular Filtration Rate > 60.0, Blood Urea Nitrogen 11, Creatinine 0.80, Sodium Level 140, Potassium Level 4.0, Chloride Level 108H, Carbon Dioxide Level 26, Calcium Level 8.3L, Aspartate Amino Transf (AST/SGOT) 11, Alanine Aminotransferase (ALT/SGPT) 15, Alkaline Phosphatase 79, Total Bilirubin 0.2#, Total Protein 6.1L, Albumin 3.2#, Magnesium Level 2.0, Albumin/Globulin Ratio 1.10 05/13/19 11:26: Bedside Glucose (Misc Panel) 80 05/13/19 11:48: Bedside Glucose (Misc Panel) 86 CBC/BMP Laboratory Tests 05/13/19 05:05 Red Blood Count 4.18 L, Mean Corpuscular Volume 89.5, Mean Corpuscular Hemoglobin 30.4, Mean Corpuscular Hemoglobin Concent 34.0, Red Cell Distribution Width 12.5, Neutrophils (%) (Auto) 48.0, Lymphocytes (%) (Auto) 35.9, Monocytes (%) (Auto) 11.4 H, Eosinophils (%) (Auto) 3.8 H, Basophils (%) (Auto) 0.7, Neutrophils # (Auto) 2.2, Lymphocytes # (Auto) 1.6, Monocytes # (Auto) 0.5, Eosinophils # (Auto) 0.2, Basophils # (Auto) 0.0, Calcium Level 8.3 L, Aspartate Amino Transf (AST/SGOT) 11, Alanine Aminotransferase (ALT/SGPT) 15, Alkaline Phosphatase 79, Total Bilirubin 0.2 #, Total Protein 6.1 L, Albumin 3.2 # FSBS Laboratory Tests Test 05/12/19 17:17 05/12/19 20:09 05/12/19 23:49 05/13/19 02:36 Range/Units Bedside Glucose (Misc Panel) 265 244 235 73 70-105 MG/DL Test 05/13/19 03:16 05/13/19 04:01 05/13/19 11:26 05/13/19 11:48 Range/Units Bedside Glucose (Misc Panel) 76 135 80 86 70-105 MG/DL Discharge Medications Scheduled Aspirin (Aspirin EC) 81 Mg Tab, 81 MG PO DAILY, (Reported) Atorvastatin Calcium (Atorvastatin Calcium) 10 Mg Tab, 10 MG PO DAILY, (Reported) Duloxetine Hcl (Cymbalta) 60 Mg Cap, 60 MG PO DAILY, (Reported) Duloxetine Hcl (Duloxetine HCl) 30 Mg Cap, 30 MG PO QPM, (Reported) Insulin Glargine,Hum.rec.anlog (Basaglar Kwikpen U-100) 100 Unit/1 Ml Insuln.pen, 65 UNIT SC DAILY, (Reported) Insulin Human Lispro (Novolog) 100 U/Ml Inj, 1 DOSE SC AC, (Reported) PER SLIDING SCALE Lisinopril (Lisinopril) 5 Mg Tab, 5 MG PO DAILY, (Reported) Metoclopramide Hcl (Reglan) 5 Mg Tab, 5 MG PO QID, (Reported) Zolpidem Tartrate (Ambien) 10 Mg Tab, 10 MG PO QHS, (Reported) Scheduled PRN Acetaminophen with Codeine (Acetaminophen-Cod #3 Tablet) 1 Tab Tab, 2 TAB PO Q4H PRN for PAIN, (Reported) Meclizine HCl (Meclizine HCl) 25 Mg Tablet, 25 MG PO TID PRN for NAUSEA OR VOMITING, (Reported) Allergies Coded Allergies: pregabalin (Verified Allergy, Unknown, 05/11/19) ABDIEL GIORDANO MD May 13, 2019 15:22
--- NOTE | 2019-05-15 11:52 | ECGEPIP ---
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
== END 2019-05-13 15:32 | disposition home or self-care (01) | DRG 420 ==
LOC: M ED 19:34 → M ED INP 22:16 → M ICU 05-12 00:04 → M MSPAV 05-12 23:42
PROVIDERS: ADMIT Internal Medicine; ATTEND Internal Medicine
DX: E10.10 Type 1 diabetes mellitus with ketoacidosis without coma (principal); E83.39 Other disorders of phosphorus metabolism; E10.43 Type 1 diabetes mellitus with diabetic autonomic (poly)neuropathy; Z79.4 Long term (current) use of insulin; Z79.899 Other long term (current) drug therapy; Z79.82 Long term (current) use of aspirin; Z88.8 Allergy status to other drugs, medicaments and biological substances; F17.200 Nicotine dependence, unspecified, uncomplicated; E87.1 Hypo-osmolality and hyponatremia; R07.9 Chest pain, unspecified; M54.5 Low back pain; E78.00 Pure hypercholesterolemia, unspecified

== ENCOUNTER 2019-08-30 21:05 | Inpatient (IN) | payer OTHER ==
[~2019-08-30] VITALS: Ht 188 cm; Wt 66.8 kg
[~2019-08-30 21:05] MED LIST changes: +BASA100I SC; -MECL-68 PO; +MECL-86 PO; +MECL1TAB31 PO
[2019-08-30] MEDS ORDERED: NS 1,000 ML IV ONE (21:45)
[2019-08-30 22:24] LABS: VENOUS BASE EXCESS -24.8 (-2.0-2.0); VENOUS HCO3 5.6 MEQ/L (23.0-27.0); VENOUS O2 SATURATION 85.4 % (60.0-80.0); VENOUS PARTIAL PRESSURE O2 59.4 mmHg (30.0-50.0); VENOUS PH 6.982 UNITS (7.330-7.430); VENOUS STANDARD HCO3 7.3 MEQ/L; VENOUS TOTAL CO2 6.3 MEQ/L (24.0-28.0)
[2019-08-30 22:35] LABS: BASO # 0.1 10^3/uL (0.0-0.2); BASO % 0.3 % (0.0-1.0); EOS % 0.1 % (0.0-3.0); HEMOGLOBIN 13.1 g/dl (13.5-17.5); LYMPH # 1.6 10^3/uL (1.5-5.0); LYMPH % 5.5 % (24.0-44.0); MEAN CORPUSCULAR HEMOGLOBIN 29.2 pg (27.0-33.0); MEAN CORPUSCULAR HGB CONC 30.5 g/dl (32.0-36.5); MONO # 1.7 10^3/uL (0.0-0.8); MONO % 5.5 % (0.0-5.0); NEUTROPHILS % 87.1 % (36.0-66.0); PLATELET COUNT, AUTOMATED 374 10^3/uL (150-450); RED BLOOD COUNT 4.48 10^6/uL (4.30-6.10)
[2019-08-30 22:53] LABS: CK-MB VALUE MASS 2.3 NG/ML (<3.6); CPK CREATINE PHOSPHOKINASE 91 U/L (39-308); MB/CK RELATIVE INDEX 2.53 (< OR =4); TROPONIN I < 0.02 NG/ML (< 0.10)
[2019-08-30 22:54] LABS: NEUTROPHILS # 26.2 10^3/uL (1.5-8.5)
[2019-08-30 22:55] LABS: ALBUMIN 4.4 GM/DL (3.2-5.2); BILIRUBIN,TOTAL 0.5 MG/DL (0.2-1.0); CALCIUM LEVEL 8.9 MG/DL (8.5-10.1); CREATININE FOR GFR 1.67 MG/DL (0.70-1.30); GLOMERULAR FILTRATION RATE 45.4 (>56); POTASSIUM SERUM 5.9 MEQ/L (3.5-5.1); TOTAL PROTEIN 7.4 GM/DL (6.4-8.2)
[2019-08-30 22:56] LABS: WHITE BLOOD COUNT 30.1 10^3/uL (4.0-10.0)
[2019-08-30] MEDS ORDERED: ONDANSETRON 4MG/2ML VIAL (J2405) IV ONE (23:00)
[2019-08-30] MEDS ORDERED: HumuLIN R (REGULAR) INSULIN (NovoLIN R) **100U/ML** PER UNIT IV ONE (23:00)
[2019-08-30] MEDS ORDERED: INSULIN HUMAN REGULAR 100 UNITS in NS 99 ML IV SCH (23:00)
[2019-08-30] MEDS ORDERED: INSULIN IV RATE CHANGE DOCUMENTATION ML/HR XX SCH (23:00)
[2019-08-30 23:10] LABS: HEMOGLOBIN A1c 12.6 %
[2019-08-30] MEDS ORDERED: ATOR1TAB21 PO (23:43)
[2019-08-31] VITALS (9 sets, daily range): BP systolic 96–115; BP diastolic 54–65
[2019-08-31] MEDS ORDERED: VANCOMYCIN HCL 1,000 MG, VIAL MATE ADAPTER 1 EACH in D5W 250 ML IV ONE ×3
[2019-08-31] MEDS ORDERED: NS 1,000 ML IV ONE
[2019-08-31] MEDS ORDERED: PIPERACILLIN/TAZOBACTAM SOD 3.375 GM in D5W MINI-BAG PLUS 50 ML IV ONE ×2
[2019-08-31 00:28] LABS: MAGNESIUM LEVEL 2.4 MG/DL (1.8-2.4)
[2019-08-31] MEDS ORDERED: NS 1,000 ML IV SCH (00:29)
[2019-08-31] MEDS ORDERED: ONDANSETRON 4MG/2ML VIAL (J2405) IV PRN (00:45)
[2019-08-31] MEDS ORDERED: INSULIN HUMAN REGULAR 100 UNITS in NS 99 ML IV SCH (02:00)
--- NOTE | 2019-08-31 02:07 | HPEPDOC ---
[facility] Medical History & Physical Date of Admission Aug 31, 2019 Date of Service: Aug 31, 2019 History and Physical CHIEF COMPLAINT: Nausea vomiting diarrhea and hyperglycemia HISTORY OF PRESENT ILLNESS: This is a 58-year-old male who presented to the ER for nausea, vomiting, diarrhea and hyperglycemia the last 48 hours. He was brought in via EMS and his daughter was at bedside to help with the story. He states the last 2 days hes noticed nausea, vomiting, diarrhea which he contr ibuted to a viral issue for his granddaughter was sick recently. He states he is compliant with all his medications until today due to the vomiting. He states he has nonbilious nonbloody vomiting and has experienced up to 8 episodes today. He also admits to having watery loose stools but is unable to quantify for me. He denies any blood in his stool or any black tarry consistency. Patient admits to having some abdominal pain especially the lower quadrant. He denies any fevers, chills, night sweats. He does endorse increased thirst and increased urination but no chest pain or shortness of breath. In the ER he was found to have a glucose of 738 with an anion gap of 26. His white count returned elevated at 30.1. He was given 1 dose of vancomycin and Zosyn in the ER and was started on insulin drip after getting 8 units of regular insulin. Hospitalist team was then called for admission for DKA. PAST MEDICAL HISTORY: 1. 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 Dyslipidemia 3. Insomnia 4. Chronic back pain 5. Depression 6. Hypertension HOME MEDICATIONS: Please see below. ALLERGIES: Please see below PAST SURGICAL HISTORY: 1. Laminectomy. 2. Bilateral Hernia repair SOCIAL HISTORY: Tobacco use: Current smoker. Denies sleeping ETOH: Occasionally, Illicit drug use: Denies, CODE STATUS: Full code FAMILY HISTORY: Reviewed and noncontributory. Positive for leukemia and bladder cancer REVIEW OF SYSTEMS: 10 systems reviewed and negative other than HPI PHYSICAL EXAMINATION: VITAL SIGNS: See below GENERAL: Pleasant 78-year-old male laying in bed awake alert oriented speaking in complete sentences no acute distress but appears uncomfortable HEENT: Atraumatic normocephalic pupils equally round and reactive, goatee and place but membranes appear dry with no obvious skin breakdown CARDIOVASCULAR: S1 S2 regular no additional heart sounds appreciated. RESPIRATORY: Clear to auscultation bilaterally. ABDOMINAL: Hypoactive bowel sounds, soft nondistended but slightly tender to touch in the lower quadrants. No skin breakdown noted EXTREMITIES: No clubbing cyanosis or edema. Minimal healing skin abrasion appreciated on the shins bilaterally. But no open wounds or cellulitis noted. NEUROLOGICAL: no gross focal deficits appreciated PSYCHOLOGICAL: Appropriate LABORATORY DATA: See below. MICROBIOLOGY: Please see below. IMAGIN08/30/2019 Chest x-ray - official report currently pending. When reviewed by me, appears negative for any acute pathology. ASSESSMENT & PLAN: This is a 38-year-old male was presented with nausea vomiting diarrhea and hypoglycemia for last 48 hours. PROBLEMS: 1. Nausea, vomiting and diarrhea possibly secondary to DKA. Insulin drip per protocol, BMP every 4 hours, normal saline 200 mL per hour frontal FSBS is less than 250 and will transition to D5 half-normal saline until the gap is closed. Nothing by mouth diet. Zofran on board for nausea. 2. Leukocytosis. Unsure if this is reactive versus infectious. He is status post 1 dose of vancomycin and Zosyn in the ER there for is covered for the next 24 hours. Blood cultures 2 was ordered but they were drawn after the Vanco and Zosyn was given. Chest x-ray was negative pathology but official report is still pending. UA was negative. Cardiac markers 1 negative EKG showed sinus rhythm with no new changes. CT abdomen and pelvis with IV contrast, GI panel and repeat lactic acid ordered. Patient does take prednisone outpatient for his chronic back pain who was recently given a three-day course of by mouth steroids as well as a prednisone shot a couple weeks ago even though its been a while can possibly contribute to leukocytosis. We will trend his WBC and watch him clinically. 3. Pseudohyponatremia secondary to hyperglycemia. Corrected sodium is 138. 4. Hyperlipidemia. Well hold atorvastatin while nothing by mouth. 5. Chronic back pain. Will hold home acetaminophen with codeine while nothing by mouth 6. Depression. We will hold home duloxetine 60 mg Daily and 30mg QPM until DKA has resolved 7. Gastroparesis well hold home Reglan until DKA has resolved 8. Hypertension. Hold home lisinopril DVT PROPHYLAXIS: Heparin DISPOSITION: At least 2 midnights Vital Signs Vital Signs Date Time Temp Pulse Resp B/P (MAP) Pulse Ox O2 Delivery O2 Flow Rate FiO2 08/31/19 01:22 98.0 19 Room Air 08/31/19 01:20 96 100 08/31/19 01:16 111/69 (83) Laboratory Data Labs 24H Laboratory Tests 2 08/30/19 22:07: POC Glucose (Misc Panel) > 700*H, POC Sodium (Misc Panel) 125L, POC Potassium (Misc Panel) 6.0H, POC Chloride (Misc Panel) 100, POC Total CO2 (Misc Panel) 8.0L, POC Blood Urea Nitrogen (Misc Panel 32H, POC Ionized Calcium (Misc Panel) 5.0, POC Lactate (Misc Panel) 2.55*H, POC Creatinine (Misc Panel) 1.1, POC Hematocrit (Misc Panel) 44.0 08/30/19 22:14: Total Creatine Kinase 91, Creatine Kinase MB 2.3, Creatine Kinase MB Relative Index 2.53, Troponin I < 0.02 08/30/19 22:15: Immature Granulocyte % (Auto) 1.5, Neutrophils (%) (Auto) 87.1H, Lymphocytes (%) (Auto) 5.5L, Monocytes (%) (Auto) 5.5H, Eosinophils (%) (Auto) 0.1, Basophils (%) (Auto) 0.3, Neutrophils # (Auto) 26.2H, Lymphocytes # (Auto) 1.6, Monocytes # (Auto) 1.7H, Eosinophils # (Auto) 0.0, Basophils # (Auto) 0.1, Nucleated Red Blood Cells % (auto) 0.0, Blood Gas Bicarbonate Standard 7.3, Venous Blood pH 6.982L, Venous Blood Partial Pressure CO2 24.0L, Venous Blood Partial Pressure O2 59.4H, Venous Blood Total Carbon Dioxide 6.3L, Venous Blood HCO3 5.6L, Venous Blood Oxygen Saturation 85.4H, Venous Blood Base Excess -24.8L, Anion Gap 26H, Glomerular Filtration Rate 45.4L, Estimated Mean Plasma Glucose 315H, Hemoglobin A1c 12.6, Calcium Level 8.9, Magnesium Level 2.4, Total Bilirubin 0.5, Aspartate Amino Transf (AST/SGOT) 20, Alanine Aminotransferase (ALT/SGPT) 25, Alkaline Phosphatase 88, Total Protein 7.4, Albumin 4.4, Albumin/Globulin Ratio 1.47 08/30/19 22:25: Urine Color STRAW, Urine Appearance CLEAR, Urine pH 5.0, Urine Specific [place] 1.016, Urine Protein 1+H, Urine Glucose (UA) 3+H, Urine Ketones 2+H, Urine Blood 1+H, Urine Nitrite NEGATIVE, Urine Bilirubin NEGATIVE, Urine Urobilinogen 0.2, Urine Leukocyte Esterase NEGATIVE, Urine WBC (Auto) 1, Urine RBC (Auto) 4H, Urine Hyaline Casts (Auto) 1, Urine Bacteria (Auto) NEGATIVE, Urine Squamous Epithelial Cells 0, Urine Mucus (Auto) SMALL, Urine Sperm (Auto) SMALLH 08/30/19 23:59: Bedside Glucose (Misc Panel) 575*H 08/31/19 01:11: Bedside Glucose (Misc Panel) 478H CBC/BMP Laboratory Tests 08/30/19 22:15 Home Medications Scheduled Aspirin (Aspirin EC) 81 Mg Tab, 81 MG PO DAILY Atorvastatin Calcium (Atorvastatin Calcium) 20 Mg Tablet, 20 MG PO DAILY Duloxetine Hcl (Cymbalta) 60 Mg Cap, 60 MG PO DAILY Duloxetine Hcl (Duloxetine HCl) 30 Mg Cap, 30 MG PO QPM Insulin Glargine,Hum.rec.anlog (Basaglar Kwikpen U-100) 100 Unit/1 Ml Insuln.pen, 65 UNIT SC DAILY Insulin Human Lispro (Novolog) 100 U/Ml Inj, 1 DOSE SC AC PER SLIDING SCALE Lisinopril (Lisinopril) 5 Mg Tab, 5 MG PO DAILY Metoclopramide Hcl (Reglan) 5 Mg Tab, 5 MG PO QID Zolpidem Tartrate (Ambien) 10 Mg Tab, 10 MG PO QHS Scheduled PRN Acetaminophen with Codeine (Acetaminophen-Cod #3 Tablet) 1 Tab Tab, 2 TAB PO Q4H PRN for PAIN Meclizine HCl (Meclizine HCl) 25 Mg Tablet, 25 MG PO TID PRN for NAUSEA OR VOMITING Allergies Coded Allergies: pregabalin (Verified Allergy, Unknown, 05/11/19) GME ATTESTATION GME ATTESTATION My faculty preceptor for this patient encounter was physically present during the encounter and was fully available. All aspects of the patient interview, examination, medical decision making process, and medical care plan development were reviewed and approved by the faculty preceptor. The faculty preceptor is aware and concurs with the plan as stated in the body of this note and will attest to such by his/her cosignature. ATTENDING NOTE I agree with Dr. Hardin's assessment of Mr. Castaneda. Briefly, he is a 58 yo type 1 diabetic who presented with a fever in DKA, with a recent history of PO steroids for chronic back pain and possible sick contacts, whom we are admitting him to the ICU per DKA protocol on an insulin gtt, placed on empiric antibiotics with ongoing infectious workup. CORBIN HARDIN DO Aug 31, 2019 02:07 BENTON SANTIZO MD Aug 31, 2019 07:31
--- NOTE | 2019-08-31 02:21 | REPVR ---
PROCEDURE INFORMATION: Exam: CT Abdomen And Pelvis Without Contrast Exam date and time: 08/31/2019 1:57 AM Age: 58 years old Clinical indication: Vomiting; Abdominal pain; Generalized; Additional info: Abd pain, vomiting, elev wbc; Unclear pathology TECHNIQUE: Imaging protocol: Computed tomography of the abdomen and pelvis without contrast. Radiation optimization: All CT scans at this facility use at least one of these dose optimization techniques: automated exposure control; mA and/or kV adjustment per patient size (includes targeted exams where dose is matched to clinical indication); or iterative reconstruction. COMPARISON: No relevant prior studies available. FINDINGS: Lungs: No suspicious mass or airspace process in the visualized lung bases. Liver: Liver is decreased in density, consistent with fatty infiltration. Gallbladder and bile ducts: Gallbladder is present and shows no evidence of gallstone. Pancreas: Noncontrast pancreas shows no obvious mass or adjacent fluid. Spleen: Noncontrast spleen shows no obvious focal deformity. Adrenals: Adrenal glands are normal in appearance. Kidneys and ureters: Kidneys show no stone or hydronephrosis. Stomach and bowel: No evidence of small bowel obstruction. No evidence of acute diverticulitis. Appendix: Normal caliber appendix is identified, with no adjacent inflammation. Intraperitoneal space: No pneumoperitoneum. Vasculature: Atherosclerotic change present in the aorta, without aneurysm. Lymph nodes: No enlarged lymph nodes. Bladder: Urinary bladder appears normal. Reproductive: Unremarkable as visualized. Bones/joints: Chronic appearing L5 pars inter-articularis defects are present. Degenerative changes are seen in the lumbar spine with disc height loss, endplate osteophytes and hypertrophic facet arthropathy. Left femur neck osseous metaplasia changes, seen in patients with hip impingement Soft tissues: Fat-containing right inguinal hernia is present. Other findings: Limited evaluation without enteric or IV contrast. IMPRESSION: 1. No evidence of acute appendicitis, renal stone or obstruction and no explanation for vomiting and elevated white count 2. Hepatic steatosis. Electronically signed by: Jacobo Mancilla On 08/31/2019 02:21:13 AM
[2019-08-31 02:52] LABS: ACETONE/KETONE > 46.00 MG/DL (<2.81); BLOOD UREA NITROGEN 33 MG/DL (7-18); CARBON DIOXIDE LEVEL 9 MEQ/L (21-32); CHLORIDE LEVEL 105 MEQ/L (98-107); CREATININE FOR GFR 1.46 MG/DL (0.70-1.30); GLUCOSE, FASTING 373 MG/DL (70-100); POTASSIUM SERUM 4.1 MEQ/L (3.5-5.1); SODIUM LEVEL 134 MEQ/L (136-145)
[2019-08-31] MEDS: INSULIN IV RATE CHANGE DOCUMENTATION ML/HR XX SCH ×7 (03:09→16:11)
[2019-08-31] MEDS ORDERED: KCL 20MEQ IN 0.45NS 1000ML 1,000 ML IV SCH (03:45)
[2019-08-31 06:11] LABS: HEMATOCRIT 34.8 % (42.0-52.0); HEMOGLOBIN 11.4 g/dl (13.5-17.5); MEAN CORPUSCULAR HEMOGLOBIN 29.2 pg (27.0-33.0); MEAN CORPUSCULAR HGB CONC 32.8 g/dl (32.0-36.5); PLATELET COUNT, AUTOMATED 305 10^3/uL (150-450); RED BLOOD COUNT 3.91 10^6/uL (4.30-6.10); WHITE BLOOD COUNT 20.8 10^3/uL (4.0-10.0)
[2019-08-31 06:30] LABS: BLOOD UREA NITROGEN 25 MG/DL (7-18); CALCIUM LEVEL 8.1 MG/DL (8.5-10.1); CARBON DIOXIDE LEVEL 14 MEQ/L (21-32); CHLORIDE LEVEL 110 MEQ/L (98-107); CREATININE FOR GFR 1.24 MG/DL (0.70-1.30); GLOMERULAR FILTRATION RATE > 60.0 (>56); GLUCOSE, FASTING 209 MG/DL (70-100); MAGNESIUM LEVEL 2.1 MG/DL (1.8-2.4); POTASSIUM SERUM 4.5 MEQ/L (3.5-5.1); SODIUM LEVEL 137 MEQ/L (136-145)
[2019-08-31] MEDS: HEPARIN SOD (PORCINE) 5000 UNITS/ML VIAL (J1644 PER 1000UNITS) SC SCH ×2 (06:34→17:23)
--- NOTE | 2019-08-31 06:37 | ECGEPIP ---
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
[2019-08-31] MEDS: KCL 20MEQ IN D5/0.45NS 1000ML 1,000 ML IV SCH ×4 (08:28→23:30)
[2019-08-31] MEDS: ATORVASTATIN 20 MG TAB PO SCH (09:20)
[2019-08-31] MEDS: DULoxetine 30 MG CAP (CYMBALTA) PO SCH (09:20)
[2019-08-31] MEDS: ASPIRIN 81 MG ENTERIC TAB PO SCH (09:20)
[2019-08-31 10:32] LABS: BLOOD UREA NITROGEN 22 MG/DL (7-18); CALCIUM LEVEL 8.3 MG/DL (8.5-10.1); CARBON DIOXIDE LEVEL 21 MEQ/L (21-32); CHLORIDE LEVEL 109 MEQ/L (98-107); CREATININE FOR GFR 1.12 MG/DL (0.70-1.30); GLOMERULAR FILTRATION RATE > 60.0 (>56); GLUCOSE, FASTING 157 MG/DL (70-100); POTASSIUM SERUM 4.2 MEQ/L (3.5-5.1); SODIUM LEVEL 135 MEQ/L (136-145)
--- NOTE | 2019-08-31 10:33 | REP ---
AP PORTABLE CHEST: 08/30/2019. Comparison: 05/11/2019. Clinical history: Dyspnea. Hyperglycemia. Possible pneumonia. Findings: AP portable chest shows the lungs well inflated. CP angles are sharply defined without effusion. No lateral pleural thickening, apical scarring or pneumothorax. No consolidation, atelectasis or mass. The heart, mediastinal and hilar contours were unchanged. The aorta is calcified at the arch but without aneurysm. Airway midline. There are degenerative changes in the shoulders and spine. Impression: 1. No acute cardiopulmonary disease, stable chest. Electronically Signed by Bran Chu MD 08/31/2019 08:21 P
[2019-08-31] MEDS: METOCLOPRAMIDE 5 MG TAB PO SCH ×3 (11:15→20:19)
[2019-08-31] MEDS: ACETAMINOPHEN TAB 650MG DOSE (2X325MG) PO PRN ×3 (13:05→21:41)
[2019-08-31 14:43] LABS: BLOOD UREA NITROGEN 18 MG/DL (7-18); CALCIUM LEVEL 8.3 MG/DL (8.5-10.1); CARBON DIOXIDE LEVEL 18 MEQ/L (21-32); CHLORIDE LEVEL 110 MEQ/L (98-107); GLOMERULAR FILTRATION RATE > 60.0 (>56); GLUCOSE, FASTING 178 MG/DL (70-100); SODIUM LEVEL 136 MEQ/L (136-145)
[2019-08-31] MEDS ORDERED: DEXTROSE 50% 50 ML SYRINGE IV PRN (16:15)
[2019-08-31] MEDS ORDERED: GLUCAGON FOR INJ 1 MG VIAL (J1610) SC PRN (16:15)
[2019-08-31] MEDS ORDERED: GLUCOSE 4 GM CHEW TABLET PO PRN (16:15)
[2019-08-31] MEDS: HumaLOG INSULIN (NovoLOG) PER UNIT SC SCH ×2 (17:23→20:16)
[2019-08-31] MEDS: LEVEMIR (INSULIN DETEMIR) 1 UNITS/0.01ML SC SCH (20:19)
[2019-09-01] VITALS: BP 128/79
[2019-09-01] MEDS: KCL 20MEQ IN D5/0.45NS 1000ML 1,000 ML IV SCH ×2 (00:28→04:04)
[2019-09-01 04:00] VITALS: BP 133/79
[2019-09-01] MEDS: ACETAMINOPHEN TAB 650MG DOSE (2X325MG) PO PRN ×3 (04:04→17:33)
[2019-09-01 05:18] VITALS: BP 133/80
[2019-09-01 05:18] LABS: MEAN CORPUSCULAR HEMOGLOBIN 29.4 pg (27.0-33.0); MEAN CORPUSCULAR HGB CONC 34.4 g/dl (32.0-36.5); MEAN CORPUSCULAR VOLUME 85.6 fl (80.0-96.0); PLATELET COUNT, AUTOMATED 262 10^3/uL (150-450); RED BLOOD COUNT 3.74 10^6/uL (4.30-6.10); WHITE BLOOD COUNT 10.7 10^3/uL (4.0-10.0)
[2019-09-01 05:37] LABS: BLOOD UREA NITROGEN 8 MG/DL (7-18); CALCIUM LEVEL 7.9 MG/DL (8.5-10.1); CARBON DIOXIDE LEVEL 20 MEQ/L (21-32); CHLORIDE LEVEL 110 MEQ/L (98-107); CREATININE FOR GFR 0.75 MG/DL (0.70-1.30); GLOMERULAR FILTRATION RATE > 60.0 (>56); GLUCOSE, FASTING 245 MG/DL (70-100); MAGNESIUM LEVEL 1.9 MG/DL (1.8-2.4); SODIUM LEVEL 134 MEQ/L (136-145)
[2019-09-01] MEDS: HEPARIN SOD (PORCINE) 5000 UNITS/ML VIAL (J1644 PER 1000UNITS) SC SCH ×2 (06:20→17:32)
[2019-09-01] MEDS: HumaLOG INSULIN (NovoLOG) PER UNIT SC SCH ×4 (07:36→20:35)
[2019-09-01] MEDS: ATORVASTATIN 20 MG TAB PO SCH (07:37)
[2019-09-01] MEDS: DULoxetine 30 MG CAP (CYMBALTA) PO SCH (07:37)
[2019-09-01] MEDS: METOCLOPRAMIDE 5 MG TAB PO SCH ×4 (07:37→20:33)
[2019-09-01] MEDS: ASPIRIN 81 MG ENTERIC TAB PO SCH (07:37)
[2019-09-01 08:00] VITALS: BP 137/79
--- NOTE | 2019-09-01 09:11 | IPN ---
DATE: 09/01/2019 Aubrey is seen on [address]. Still has some nausea, crampy abdominal pain, diarrhea from his gastroenteritis. Blood sugars have come under good control. His anion gap is normalized. He is off his insulin drip, just on a sliding scale insulin. He is also on D5 because his oral intake has been poor. PHYSICAL EXAMINATION: Blood pressure 133/80. Vital signs stable. General Appearance: Alert, conversant in no distress. Lungs: Clear. Heart: Regular rhythm. Abdomen: Soft. Diffusely mildly nontender. No peripheral edema. Good distal pulses. LABS: Sodium 134, potassium 4, BUN 8, creatinine 0.7, glucose 245. Blood sugars have been generally below 200 for the last 24 hours. White count is down to 10.7, hemoglobin 11, platelets 262. IMPRESSION: 1. Diabetic ketoacidosis: He is on sliding scale insulin, morning and night with coverage as well as Detemir insulin as a basal insulin. If he is able to take breakfast well, I just talked to the nursing staff about calling and we will discontinue his IV fluids. 2. Leukocytosis: Suspect reactive. Blood cultures have been negative. No signs of active infection. 3. Hyperlipidemia: Continue his Lipitor 20 mg daily 4. History of gastroparesis: He take Reglan 5 mg in the morning and at bedtime, which he will continue. 5. Neuropathy: He is on Cymbalta 60 mg daily, which will be continued. Probable discharge tomorrow.
--- NOTE | 2019-09-01 10:08 | IPN ---
DATE: 08/31/2019 Aubrey is a patient of Isauro De Oliveira at the [facility], who was admitted to the hospitalist's service into the intensive care unit (ICU) with diabetic ketoacidosis. He had, what sounds like a gastroenteritis, aching all over, nausea, vomiting, and diarrhea. He claims to be compliant with his insulin. He has a history of diabetic gastroparesis. He feels better today, but still has not eaten anything. His anion gap has normalized. He had leukocytosis on admission, probably was reactive. He is having no fever and, so far, there are no active signs of infection. PHYSICAL EXAMINATION: 99/57, afebrile, respiratory rate 18, 100% oxygen saturation. GENERAL APPEARANCE: Alert, conversant, no distress. LUNGS: Clear. HEART: Regular rate and rhythm. ABDOMEN: Soft, nontender. No peripheral edema. Mucous membranes look moist. LABS: White count is down to 20,000, hemoglobin 11.4, platelets 305. Sodium 137, potassium 4.5, anion gap 13, BUN 25, creatinine 1.24. Blood sugar 209. Most recent fingerstick 189. IMPRESSION: 1. Diabetic ketoacidosis. Will continue insulin drip through the morning. Will start some clear liquids. Advance the diet as tolerated. If he is able to tolerate diet, we will probably stop the insulin drip and transfer him out of the unit on sliding scale insulin and some basal insulin. 2. Diabetic gastroparesis. Will restart Reglan, which he uses as an outpatient. 3. Viral gastroenteritis. Continue intravenous (IV) fluids for now. Potassium seems to be normalized. 4. History of depression. Will restart his duloxetine in order to avoid serotonin-norepinephrine reuptake Inhibitor (SNRI) withdrawal symptoms. 5. Hyperlipidemia. Restart atorvastatin 20 mg daily and aspirin daily. 6. Acute kidney injury. This is resolved with hydration. 7. Hypertension. Hold his lisinopril, as he is still hypotensive.
[2019-09-01 14:00] VITALS: BP 155/80
[2019-09-01 20:00] VITALS: BP 136/82
[2019-09-01] MEDS: LEVEMIR (INSULIN DETEMIR) 1 UNITS/0.01ML SC SCH (20:33)
[2019-09-01] MEDS: CEPACOL LOZENGE PO PRN (21:17)
[2019-09-02] MEDS: ACETAMINOPHEN TAB 650MG DOSE (2X325MG) PO PRN ×3 (00:13→11:06)
[2019-09-02] MEDS: CEPACOL LOZENGE PO PRN ×5 (00:13→11:06)
[2019-09-02] MEDS: HEPARIN SOD (PORCINE) 5000 UNITS/ML VIAL (J1644 PER 1000UNITS) SC SCH (05:51)
[2019-09-02 06:00] VITALS: BP 157/86
[2019-09-02 07:04] LABS: HEMATOCRIT 34.3 % (42.0-52.0); HEMOGLOBIN 11.4 g/dl (13.5-17.5); MEAN CORPUSCULAR HEMOGLOBIN 29.1 pg (27.0-33.0); MEAN CORPUSCULAR HGB CONC 33.2 g/dl (32.0-36.5); MEAN CORPUSCULAR VOLUME 87.5 fl (80.0-96.0); PLATELET COUNT, AUTOMATED 229 10^3/uL (150-450); RED BLOOD COUNT 3.92 10^6/uL (4.30-6.10); WHITE BLOOD COUNT 5.1 10^3/uL (4.0-10.0)
[2019-09-02 07:37] LABS: BLOOD UREA NITROGEN 3 MG/DL (7-18); CALCIUM LEVEL 8.4 MG/DL (8.5-10.1); CARBON DIOXIDE LEVEL 26 MEQ/L (21-32); CHLORIDE LEVEL 110 MEQ/L (98-107); CREATININE FOR GFR 0.56 MG/DL (0.70-1.30); GLOMERULAR FILTRATION RATE > 60.0 (>56); GLUCOSE, FASTING 124 MG/DL (70-100); MAGNESIUM LEVEL 2.1 MG/DL (1.8-2.4); POTASSIUM SERUM 3.8 MEQ/L (3.5-5.1); SODIUM LEVEL 140 MEQ/L (136-145)
[2019-09-02] MEDS: DULoxetine 30 MG CAP (CYMBALTA) PO SCH (07:53)
[2019-09-02] MEDS: METOCLOPRAMIDE 5 MG TAB PO SCH ×2 (07:53→12:34)
[2019-09-02] MEDS: HumaLOG INSULIN (NovoLOG) PER UNIT SC SCH ×2 (07:53→12:34)
[2019-09-02] MEDS: ASPIRIN 81 MG ENTERIC TAB PO SCH (07:53)
[2019-09-02] MEDS: ATORVASTATIN 20 MG TAB PO SCH (07:53)
--- NOTE | 2019-09-02 09:01 | IPNPDOC ---
Subjective Date Seen The patient was seen on 09/02/19. Subjective Chief Complaint/HPI Stable this morning, c/o sore throat. BG controlled, tolerating diet. Objective Physical Examination General Exam: Positive: Alert, No Acute Distress Eye Exam: Positive: PERRLA, Conjunctiva & lids normal, EOMI; Negative: Sclera icteric ENT Exam: Positive: Atraumatic, Mucous membr. moist/pink, Pharynx Normal Neck Exam: Positive: Supple; Negative: JVD, thyromegaly Chest Exam: Positive: Clear to auscultation, Normal air movement Heart Exam: Positive: Rate Normal, Regular Rhythm, Normal S1, Normal S2; Negative: Murmurs, Rubs Abdomen Exam: Positive: Normal bowel sounds, Soft; Negative: Tenderness, Hepatospenomegaly Extremity Exam: Positive: Normal pulses; Negative: Clubbing, Cyanosis, Edema Skin Exam: Positive: Nl turgor and temperature; Negative: Rash, Breakdown Assessment /Plan Assessment # DKA - resolved - home today - f/u with PCP - has appt with wardrobe coordinator next month - resume home insulin Plan/VTE VTE Prophylaxis Ordered?: Yes VTE Exclusion Mechanical Proph: N/A:VTE Prophy Ordered VTE Exclusion Pharmacological: N/A:VTE Prophy Ordered VS, I&O, 24H, Fishbone Vital Signs/I&O Vital Signs Date Time Temp Pulse Resp B/P (MAP) Pulse Ox O2 Delivery O2 Flow Rate FiO2 09/02/19 06:00 98.1 80 17 157/86 (109) 99 Room Air I&O- Last 24 Hours up to 6 AM 09/02/19 06:00 Intake Total 1440 ml Output Total 825 ml Balance 615 ml Laboratory Data 24H LABS Laboratory Tests 2 09/01/19 11:25: Bedside Glucose (Misc Panel) 167H 09/01/19 17:22: Bedside Glucose (Misc Panel) 178H 09/01/19 20:08: Bedside Glucose (Misc Panel) 190H 09/02/19 06:52: Nucleated Red Blood Cells % (auto) 0.0, Anion Gap 4L, Glomerular Filtration Rate > 60.0, Calcium Level 8.4L, Magnesium Level 2.1 CBC/BMP Laboratory Tests 09/02/19 06:52 Microbiology Microbiology 08/31/19 Blood Culture - Preliminary, Resulted No Growth after 48 hours. All Specime... 08/31/19 Blood Culture - Preliminary, Resulted No Growth after 48 hours. All Specime... PRAVEENA DE ANDA MD Sep 02, 2019 09:01
--- NOTE | 2019-09-07 19:39 | DSES ---
DATE OF ADMISSION: 08/31/2019 DATE OF DISCHARGE: 09/02/2019 DISCHARGE DIAGNOSES: 1. Diabetic ketoacidosis. 2. Diabetes mellitus type 1. 3. Leukocytosis secondary to leukemoid reaction. PROCEDURES PERFORMED DURING THIS HOSPITALIZATION: None. CONSULTANTS ON THE CASE: None. DISPOSITION: The patient was discharged home in stable condition. DISCHARGE INSTRUCTIONS: The patient is instructed to followup with his primary care provider in the next week. DISCHARGE MEDICATIONS: - Tylenol with codeine one to two tablets every 4 hours as needed for pain - baby aspirin daily - atorvastatin 20 mg daily - Cymbalta 60 mg daily - duloxetine 30 mg at bedtime - Lantus 65 units daily - NovoLog sliding scale - Lisinopril 5 mg daily - meclizine 25 mg three times a day as needed for nausea and vomiting - Reglan 5 mg by mouth four times a day - Ambien 10 mg at bedtime RELEVANT IMAGING STUDIES: CT of the abdomen and pelvis, which showed only hepatosteatosis with no acute findings. Please reference full report for details. Chest x-ray, one view, showed no acute cardiopulmonary process. RELEVANT LABORATORIES: Blood cultures times two were negative. On admission, the patient had a white count of 30,000, which trended down to 5.1. Hemoglobin 11.4, hematocrit 34.3, platelet count 229. Venous blood gas showed a venous pH of 6.9. Sodium 140, potassium 3.5, chloride 110, bicarbonate 26, creatinine 0.56, glucose 124, calcium 8.4, lactic acid was 1.2. HOSPITAL COURSE: Mr. Castaneda is a 68-year-old type 1 diabetic who had been exposed to his granddaughter who had a viral illness. The patient subsequently developed intractable nausea and vomiting with some diarrhea. He subsequently presented to the hospital with a blood glucose in excess of 700. He was found to be in acute diabetic ketoacidosis. He was also noted to have an elevated white blood cell count of 30,000, which prompted them to do a CT of the abdomen and pelvis, which was unremarkable, as was chest x-ray. He was empirically treated with one dose of vancomycin and Zosyn. Blood cultures obtained during the hospitalization did not grow any organisms. He did not receive any further antibiotics. His white count trended down to normal on its own. It was felt that the elevation in his leukocytosis was secondary to a leukemoid reaction from his acute diabetic ketoacidosis. The patient was admitted to the intensive care unit (ICU) where he was placed on an insulin drip. His blood sugars, as well as ketoacidosis subsequently corrected. He transitioned to his home insulin regimen and transferred to the floor where he did quite well. He was able to tolerate a diet. He was subsequently discharged home in stable condition. A total of 30 minutes was spent completing all discharge paperwork.
== END 2019-09-02 13:18 | disposition home or self-care (01) | DRG 249 ==
LOC: M ED 21:05 → M ED INP 08-31 00:32 → ENRESERV 08-31 01:14 → M ICU 08-31 02:20 → M MS4PR 09-01 05:10
PROVIDERS: ADMIT Internal Medicine; ATTEND Internal Medicine
DX: A08.4 Viral intestinal infection, unspecified (principal); E10.10 Type 1 diabetes mellitus with ketoacidosis without coma; N17.9 Acute kidney failure, unspecified; E10.43 Type 1 diabetes mellitus with diabetic autonomic (poly)neuropathy; E10.40 Type 1 diabetes mellitus with diabetic neuropathy, unspecified; D72.823 Leukemoid reaction; I10 Essential (primary) hypertension; F32.9 Major depressive disorder, single episode, unspecified; M54.5 Low back pain; E78.5 Hyperlipidemia, unspecified; Z79.82 Long term (current) use of aspirin; Z79.899 Other long term (current) drug therapy; Z88.8 Allergy status to other drugs, medicaments and biological substances; F17.200 Nicotine dependence, unspecified, uncomplicated; G47.00 Insomnia, unspecified

== ENCOUNTER → 2020-02-24 | Outpatient (CLI) | payer OTHER ==
[~2020-02-24] MED LIST changes: +ADME100I2 SC; +ATOR1TAB21 PO; +FIRV50SO PO; +FLAG500T PO; +TYLETAB14 PO
[2020-02-24 10:46] LABS: HEMOGLOBIN A1c 10.9 %
== END ==
LOC: M LAB 09:28
PROVIDERS: ATTEND Physician Assistant
DX: E10.65 Type 1 diabetes mellitus with hyperglycemia (principal)

== ENCOUNTER 2020-03-28 18:36 | Inpatient (IN) | payer OTHER ==
[~2020-03-28] VITALS: Ht 190.5 cm; Wt 75.7 kg
[~2020-03-28 18:36] MED LIST changes: -ADME100I2 SC; -FIRV50SO PO; -FLAG500T PO; -TYLETAB14 PO
[2020-03-28] MEDS ORDERED: TYLETAB14 PO (18:57)
[2020-03-28] MEDS ORDERED: ADME100I2 SC (18:57)
[2020-03-28] MEDS ORDERED: INSULIN REGULAR IN 0.9 % NACL 100 UNIT in IV 1 EA IV SCH ×2 (19:30)
[2020-03-28] MEDS ORDERED: INSULIN IV RATE CHANGE DOCUMENTATION ML/HR XX SCH (19:30)
[2020-03-28] MEDS ORDERED: HumuLIN R (REGULAR) INSULIN (NovoLIN R) **100U/ML** PER UNIT IV ONE (19:30)
[2020-03-28 20:28] LABS: BASO # 0.1 10^3/uL (0.0-0.2); BASO % 0.2 % (0.0-1.0); HEMATOCRIT 40.2 % (42.0-52.0); HEMOGLOBIN 12.8 g/dl (13.5-17.5); LYMPH # 1.5 10^3/uL (1.5-5.0); LYMPH % 6.4 % (24.0-44.0); MEAN CORPUSCULAR HEMOGLOBIN 29.8 pg (27.0-33.0); MEAN CORPUSCULAR HGB CONC 31.8 g/dl (32.0-36.5); MEAN CORPUSCULAR VOLUME 93.5 fl (80.0-96.0); MONO # 0.4 10^3/uL (0.0-0.8); MONO % 1.6 % (0.0-5.0); NEUTROPHILS # 21.9 10^3/uL (1.5-8.5); NEUTROPHILS % 90.8 % (36.0-66.0); PLATELET COUNT, AUTOMATED 406 10^3/uL (150-450); WHITE BLOOD COUNT 24.1 10^3/uL (4.0-10.0)
[2020-03-28 20:54] LABS: BLOOD UREA NITROGEN 34 MG/DL (7-18); CALCIUM LEVEL 9.3 MG/DL (8.5-10.1); CARBON DIOXIDE LEVEL 4 MEQ/L (21-32); CHLORIDE LEVEL 99 MEQ/L (98-107); CREATININE FOR GFR 1.46 MG/DL (0.70-1.30); GLOMERULAR FILTRATION RATE 52.8 (>56); GLUCOSE, FASTING 536 MG/DL (70-100); POTASSIUM SERUM 5.3 MEQ/L (3.5-5.1); SODIUM LEVEL 129 MEQ/L (136-145)
[2020-03-28 20:55] LABS: ACETONE/KETONE > 46.00 MG/DL (<2.81)
[2020-03-28] MEDS ORDERED: NS 1,000 ML IV ONE ×2 (21:00→22:00)
[2020-03-28] MEDS: INSULIN REGULAR IN 0.9 % NACL 100 UNIT in IV 1 EA IV SCH ×2 (21:24)
--- NOTE | 2020-03-28 21:37 | HPEPDOC ---
[facility] Medical History & Physical Date of Admission Mar 28, 2020 Date of Service: Mar 28, 2020 History and Physical CHIEF COMPLAINT: "sick to my stomach" HISTORY OF PRESENT ILLNESS: Patient is 59 year old male with Type I DM with hx recurrent admissions for DKA, HTN, HLD, Depression and chronic back pain presented to the ER with complaints of feeling sick to his stomach for the past several days. Symptoms associated with nausea, vomiting, increased thirst and diarrhea. He does not report abdominal pain, chest pain, SOB, fever, chills or any other symptoms apart from what was mentioned. In ER, patient was found to have AG 26, bicarb 4 and BHB 46. He very tachypneic and states that it is due to a combination of his back pain and maybe his DKA as well. He lives alone and has no sick contact. Does not report any urinary complaints. PAST MEDICAL HISTORY: Refer to HPI PAST SURGICAL HISTORY: Laminectomy b/l hernia repair SOCIAL HISTORY: Smoke 1/2 ppd. Social alcohol use. Denies drug use. FAMILY HISTORY: Father- leukemia ALLERGIES: Please see below. REVIEW OF SYSTEMS: 10 point ROS negative except as above HOME MEDICATIONS: Please see below. PHYSICAL EXAMINATION: - General: Lying in bed with moderate discomfort. Labored breathing, severely dry skin and mucous membrane. - HEENT: Atraumatic, PERRLA. Dry mucous membrane. - CVS: Normal rate and rhythm. - Lungs: No appreciable wheezing / rales / rhonchi. tachypneic. - Abdomen: Soft, Non-distended, Non-tender - Extremities: No extremity swelling, limbs intact - Skin: Warm and dry - Neuro: No focal motor or sensory deficit LABORATORY DATA: See below. MICROBIOLOGY: Please see below. ASSESSMENT AND PLAN: 1. DKA 2/2 Type I DM - Patient has been nauseated and reported stopped taking his long acting insulin at some point as he was not eating. - AG 26, BHB >46, Bicarb 4, BS 536 on presentation. - Obtain Urine study and blood cultures. Leukocytosis WBC 26, reactive vs. infectious. No clear source of infection at this time, will hold off on Abx and monitor for fevers and repeat bloodwork. Low threshold to start empiric Abx. - EKG done in ER reported no ischemic changes. - Received 1 NS bolus in ER and started on insulin drip. Another bolus is ordered followed by high rate maintenance fluid with K supplementation. - Admit to ICU for insulin drip monitoring and adjustment. - Continue to trend BMP q4, monitor for electrolytes and AG. - NPO with ice chips. Once AG is closed, will transition to D5 1/2, SQ insulin and start patient on diet. 2. HTN - Hold PO meds for now. Monitor BP. 3. HLD - Hold Atorvastatin. 4. Depression - resume duloxetine once patient diet is restarted. 5. Gastroparesis DVT ppx: HSQ and SCD Code status: Full code Vital Signs Vital Signs Date Time Temp Pulse Resp B/P (MAP) Pulse Ox O2 Delivery O2 Flow Rate FiO2 03/28/20 19:25 Room Air 03/28/20 18:49 97.8 91 22 132/62 (85) 100 Laboratory Data Labs 24H Laboratory Tests 2 03/28/20 19:50: Immature Granulocyte % (Auto) 1.0, Neutrophils (%) (Auto) 90.8H, Lymphocytes (%) (Auto) 6.4L, Monocytes (%) (Auto) 1.6, Eosinophils (%) (Auto) 0.0, Basophils (%) (Auto) 0.2, Neutrophils # (Auto) 21.9H, Lymphocytes # (Auto) 1.5, Monocytes # (Auto) 0.4, Eosinophils # (Auto) 0.0, Basophils # (Auto) 0.1, Nucleated Red Blood Cells % (auto) 0.0, Anion Gap 26H, Glomerular Filtration Rate 52.8L, Calcium Level 9.3, B-Hydroxybutyrate > 46.00H CBC/BMP Laboratory Tests 03/28/20 19:50 Home Medications Scheduled Aspirin (Aspirin EC) 81 Mg Tab, 81 MG PO DAILY Atorvastatin Calcium (Atorvastatin Calcium) 20 Mg Tablet, 20 MG PO DAILY Duloxetine Hcl (Cymbalta) 60 Mg Cap, 60 MG PO DAILY Duloxetine Hcl (Duloxetine HCl) 30 Mg Cap, 30 MG PO QPM Insulin Glargine,Hum.rec.anlog (Basaglar Kwikpen U-100) 100 Unit/1 Ml In suln.pen, 65 UNIT SC DAILY Insulin Lispro (Admelog Solostar) 100 Unit/1 Ml Insuln.pen, 1 UNIT SC TID SLIDING SCALE BS 150-200 =8 UNITS 201-250 = 10 UNITS 251-300 =12 UNITS Lisinopril (Lisinopril) 5 Mg Tab, 5 MG PO DAILY Zolpidem Tartrate (Ambien) 10 Mg Tab, 10 MG PO QHS Scheduled PRN Acetaminophen with Codeine (Acetaminophen-Cod #3 Tablet) 1 Tab Tab, 2 TAB PO q6- 8h PRN for PAIN Allergies Coded Allergies: pregabalin (Verified Allergy, Unknown, 03/28/20) A-FIB/CHADSVASC A-FIB History Current/History of A-Fib/PAF?: No STARLA OSEI MD Mar 28, 2020 21:37
[2020-03-28] MEDS ORDERED: KCL 20MEQ in NS 1000ML 1,000 ML IV SCH (23:00)
[2020-03-28] MEDS: ACETAMINOPHEN TAB 650MG DOSE (2X325MG) PO PRN (23:26)
[2020-03-28 23:30] VITALS: BP 102/60
[2020-03-28] MEDS: INSULIN IV RATE CHANGE DOCUMENTATION ML/HR XX SCH (23:55)
[2020-03-29] VITALS (20 sets, daily range): BP systolic 83–129; BP diastolic 52–70
[2020-03-29 00:26] LABS: HEMATOCRIT 39.3 % (42.0-52.0); HEMOGLOBIN 12.6 g/dl (13.5-17.5); MEAN CORPUSCULAR HEMOGLOBIN 29.1 pg (27.0-33.0); MEAN CORPUSCULAR HGB CONC 32.1 g/dl (32.0-36.5); MEAN CORPUSCULAR VOLUME 90.8 fl (80.0-96.0); PLATELET COUNT, AUTOMATED 370 10^3/uL (150-450); RED BLOOD COUNT 4.33 10^6/uL (4.30-6.10)
[2020-03-29 00:41] LABS: CALCIUM LEVEL 8.8 MG/DL (8.5-10.1); CREATININE FOR GFR 1.38 MG/DL (0.70-1.30); GLOMERULAR FILTRATION RATE 56.3 (>56); POTASSIUM SERUM 4.1 MEQ/L (3.5-5.1)
[2020-03-29] MEDS: INSULIN IV RATE CHANGE DOCUMENTATION ML/HR XX SCH ×6 (01:04→12:24)
[2020-03-29 01:14] LABS: ABG HCO3 6.9 MEQ/L (22.0-26.0); ABG PARTIAL PRESSURE CO2 18.6 mmHg (35.0-45.0); ABG PARTIAL PRESSURE O2 162.8 mmHg (75.0-100.0); ABG TOTAL CO2 7.4 MEQ/L (22.0-29.0)
[2020-03-29 01:15] LABS: ABG BASE EXCESS -19.4 (-2.0-2.0); ABG O2 SATURATION 99.1 % (95.0-99.0); ABG STANDARD HCO3 10.2 MEQ/L (22.0-26.0)
[2020-03-29 01:18] LABS: ABG pH (ARTERIAL) 7.185 UNITS (7.350-7.450)
[2020-03-29] MEDS: KCL 20MEQ IN D5/0.45NS 1000ML 1,000 ML IV SCH ×4 (02:15→11:46)
[2020-03-29] MEDS ORDERED: KCL 20MEQ IN D5/.45NACL 1000ML As Ordered ONE (02:27)
[2020-03-29 04:36] LABS: VENOUS BASE EXCESS -14.9 (-2.0-2.0); VENOUS HCO3 11.1 MEQ/L (23.0-27.0); VENOUS PARTIAL PRESSURE CO2 27.2 mmHg (38.0-50.0); VENOUS PARTIAL PRESSURE O2 150.4 mmHg (30.0-50.0); VENOUS PH 7.229 UNITS (7.330-7.430); VENOUS TOTAL CO2 11.9 MEQ/L (24.0-28.0)
[2020-03-29] MEDS: PIPERACILLIN/TAZOBACTAM SOD 4.5 GM in D5W MINI-BAG PLUS 50 ML IV SCH ×4 (04:40→23:32)
[2020-03-29 04:43] LABS: HEMATOCRIT 31.2 % (42.0-52.0); HEMOGLOBIN 10.9 g/dl (13.5-17.5); MEAN CORPUSCULAR HGB CONC 34.9 g/dl (32.0-36.5); PLATELET COUNT, AUTOMATED 321 10^3/uL (150-450); RED BLOOD COUNT 3.63 10^6/uL (4.30-6.10); WHITE BLOOD COUNT 18.5 10^3/uL (4.0-10.0)
[2020-03-29] MEDS: HEPARIN SOD (PORCINE) 5000UNITS/ML 1ML VIAL/SYRINGE SQ SCH ×3 (05:02→21:39)
--- NOTE | 2020-03-29 05:20 | PHACANCOPD ---
PHARMACY VANCOMYCIN DOSING Pt Demographics Demographics Patient Age:59 , Weight:75.700 , Gender: male Adjusted Body Weight date: 03/29/20, Adjusted Body Weight: [75.7] Kg(actual wt) Vancomycin Vancomycin indication: sepsis empirir tx Vancomycin Target Ranges: 15-20 mcg/ml Vancomycin Load Y/N: Yes Load Dose Date Time Vancomycin Load Dose: 1.5 gm Date: 03/29 Time: 6:00&7:00 Vancomycin Dose Date: 03/29/20. Current Vancomycin Dose: [1 gm iv q12] Intermittent Dosing?: No Labs Micro Microbiology 03/29/20 Blood Culture, Received Pending 03/28/20 Blood Culture, Received Pending Creatinine Clearance Date:03/29/20. Creatinine Clearance: [62.5].(calculated) Assessment and Plan Maintaining Current Dose?: Yes Reason for dose change: No Dose Change Pharmacist Note Pharmacist Note Date: 03/29/20. Pharmacist note:59 YOM,admitted for sepsis empiric tx .Ht:75",Wt:75.7kg,SCR=1.38,Calculated CRCL~62.5. Allergy:pregabalin.MRSA PCR ordered. TX includes Pip/Tazo 4.5 grams iv q6h and pharmacy managed Vancomycin. Vancomycin 1.5 gram loading dose ordered for this morning@06&07:00, then will begin a regimen of 1 gram IV [id number] this afternoon@1800. First trough is scheduled for 03/30@1700 (prior to the 4th dose) [facility] Mar 29, 2020 05:20
[2020-03-29 05:53] LABS: BLOOD UREA NITROGEN 32 MG/DL (7-18); CALCIUM LEVEL 8.4 MG/DL (8.5-10.1); CARBON DIOXIDE LEVEL 13 MEQ/L (21-32); CHLORIDE LEVEL 110 MEQ/L (98-107); CREATININE FOR GFR 1.17 MG/DL (0.70-1.30); GLOMERULAR FILTRATION RATE > 60.0 (>56); GLUCOSE, FASTING 264 MG/DL (70-100); POTASSIUM SERUM 4.6 MEQ/L (3.5-5.1); SODIUM LEVEL 135 MEQ/L (136-145)
[2020-03-29] MEDS ORDERED: VANCOMYCIN HCL 750 MG, VIAL MATE ADAPTER 1 EACH in D5W 250 ML IV ONE ×2 (06:00→07:00)
[2020-03-29] MEDS: INSULIN REGULAR IN 0.9 % NACL 100 UNIT in IV 1 EA IV SCH ×2 (08:03)
[2020-03-29] MEDS: ACETAMINOPHEN TAB 650MG DOSE (2X325MG) PO PRN ×2 (08:25→21:39)
[2020-03-29 08:52] LABS: BLOOD UREA NITROGEN 28 MG/DL (7-18); CALCIUM LEVEL 8.4 MG/DL (8.5-10.1); CARBON DIOXIDE LEVEL 19 MEQ/L (21-32); CHLORIDE LEVEL 111 MEQ/L (98-107); CREATININE FOR GFR 1.11 MG/DL (0.70-1.30); GLOMERULAR FILTRATION RATE > 60.0 (>56); GLUCOSE, FASTING 252 MG/DL (70-100); POTASSIUM SERUM 4.2 MEQ/L (3.5-5.1); SODIUM LEVEL 135 MEQ/L (136-145)
[2020-03-29] MEDS ORDERED: ENOXAPARIN 40MG/0.4ML SYRINGE (J1650 PER 10MG) SC SCH (09:00)
[2020-03-29] MEDS ORDERED: LEVEMIR (INSULIN DETEMIR) 1 UNITS/0.01ML SC ONE (10:15)
[2020-03-29] MEDS: PANTOPRAZOLE 40MG TAB (PROTONIX) PO SCH (10:37)
[2020-03-29] MEDS ORDERED: HumaLOG INSULIN (NovoLOG) PER UNIT SC SCH (13:00)
[2020-03-29] MEDS ORDERED: GLUCAGON INJ 1MG VIAL SC PRN (13:15)
[2020-03-29] MEDS ORDERED: GLUCOSE 4GM CHEW TABLET PO PRN (13:15)
[2020-03-29] MEDS ORDERED: ONDANSETRON 4MG/2ML VIAL IV PRN (13:15)
[2020-03-29] MEDS ORDERED: DEXTROSE 50% 50 ML SYRINGE IV PRN (13:15)
[2020-03-29] MEDS ORDERED: ONDANSETRON 4MG/2ML VIAL As Ordered ONE (13:17)
[2020-03-29 13:52] LABS: BLOOD UREA NITROGEN 25 MG/DL (7-18); CALCIUM LEVEL 9.1 MG/DL (8.5-10.1); CARBON DIOXIDE LEVEL 18 MEQ/L (21-32); CHLORIDE LEVEL 109 MEQ/L (98-107); CREATININE FOR GFR 0.92 MG/DL (0.70-1.30); GLOMERULAR FILTRATION RATE > 60.0 (>56); GLUCOSE, FASTING 108 MG/DL (70-100); SODIUM LEVEL 134 MEQ/L (136-145)
--- NOTE | 2020-03-29 14:55 | IPNPDOC ---
Text Note Date of Service The patient was seen on 03/29/20. NOTE Patient was seen and examined. Doing better today. Complains of slight dizzin ess. PHYSICAL EXAMINATION: - General: Lying in bed with moderate discomfort. Labored breathing, severely dry skin and mucous membrane. - HEENT: Atraumatic, PERRLA. Dry mucous membrane. - CVS: Normal rate and rhythm. - Lungs: No appreciable wheezing / rales / rhonchi. tachypneic. - Abdomen: Soft, Non-distended, Non-tender - Extremities: No extremity swelling, limbs intact - Skin: Warm and dry - Neuro: No focal motor or sensory deficit LABORATORY DATA: See below. MICROBIOLOGY: Please see below. ASSESSMENT AND PLAN: 1. DKA 2/2 Type I DM: Resolved. Insulin Drip switced yo the sq Levemir 50 for bridging and then 30 bid along with SSI. This all is likely sec to non complaince Will dc q4 BMP and start q4 glucocheks. Spoke to the patient regarding the dietary and med complaince. ADA soft diet started 2. HTN: Restart PO meds for now. Monitor BP. 3. HLD: Atorvastatin. 4. Depression: will resume duloxetin 5. Gastroparesis: will resume reglan DVT ppx: HSQ and SCD Code status: Full code VS,Fishbone, I+O VS, Fishbone, I+O Laboratory Tests 03/28/20 19:50 03/29/20 00:00 03/29/20 00:05 03/29/20 04:15 03/29/20 08:10 03/29/20 12:00 Vital Signs Date Time Temp Pulse Resp B/P (MAP) Pulse Ox O2 Delivery O2 Flow Rate FiO2 03/29/20 13:00 80 18 127/67 (87) 100 Room Air 03/29/20 12:00 98.2 I&O- Last 24 Hours up to 6 AM 03/29/20 06:00 Intake Total 2467 ml Output Total 1200 ml Balance 1267 ml KIM SHOOK MD Mar 29, 2020 14:55
[2020-03-29] MEDS: HumaLOG INSULIN (NovoLOG) PER UNIT SC SCH ×3 (16:10→23:39)
[2020-03-29] MEDS: VANCOMYCIN HCL 1,000 MG, VIAL MATE ADAPTER 1 EACH in D5W 250 ML IV SCH (18:22)
[2020-03-29] MEDS ORDERED: LEVEMIR (INSULIN DETEMIR) 1 UNITS/0.01ML SC SCH (21:00)
[2020-03-29] MEDS: DULoxetine 30 MG CAP (CYMBALTA) PO SCH (21:38)
[2020-03-29 22:16] LABS: ALBUMIN 3.5 GM/DL (3.2-5.2); ALT/SGPT 17 U/L (12-78); BILIRUBIN,TOTAL 0.4 MG/DL (0.2-1.0); BLOOD UREA NITROGEN 17 MG/DL (7-18); CALCIUM LEVEL 9.1 MG/DL (8.5-10.1); CARBON DIOXIDE LEVEL 22 MEQ/L (21-32); CHLORIDE LEVEL 109 MEQ/L (98-107); CREATININE FOR GFR 0.97 MG/DL (0.70-1.30); GLOMERULAR FILTRATION RATE > 60.0 (>56); GLUCOSE, FASTING 112 MG/DL (70-100); POTASSIUM SERUM 3.7 MEQ/L (3.5-5.1); SODIUM LEVEL 136 MEQ/L (136-145); TOTAL PROTEIN 6.1 GM/DL (6.4-8.2)
[2020-03-30] VITALS (7 sets, daily range): BP systolic 97–155; BP diastolic 62–90
[2020-03-30] MEDS: PIPERACILLIN/TAZOBACTAM SOD 4.5 GM in D5W MINI-BAG PLUS 50 ML IV SCH ×4 (05:14→22:49)
[2020-03-30] MEDS: HumaLOG INSULIN (NovoLOG) PER UNIT SC SCH ×5 (05:14→21:00)
[2020-03-30 05:43] LABS: EOS # 0.1 10^3/uL (0.0-0.5); EOS % 0.7 % (0.0-3.0); HEMATOCRIT 31.1 % (42.0-52.0); HEMOGLOBIN 10.7 g/dl (13.5-17.5); LYMPH # 1.5 10^3/uL (1.5-5.0); LYMPH % 20.1 % (24.0-44.0); MEAN CORPUSCULAR HEMOGLOBIN 29.1 pg (27.0-33.0); MEAN CORPUSCULAR HGB CONC 34.4 g/dl (32.0-36.5); MEAN CORPUSCULAR VOLUME 84.5 fl (80.0-96.0); MONO # 0.6 10^3/uL (0.0-0.8); MONO % 8.1 % (0.0-5.0); NEUTROPHILS # 5.1 10^3/uL (1.5-8.5); NEUTROPHILS % 70.7 % (36.0-66.0); PLATELET COUNT, AUTOMATED 263 10^3/uL (150-450); RED BLOOD COUNT 3.68 10^6/uL (4.30-6.10); WHITE BLOOD COUNT 7.3 10^3/uL (4.0-10.0)
[2020-03-30 06:09] LABS: ALBUMIN 3.1 GM/DL (3.2-5.2); ALT/SGPT 17 U/L (12-78); BILIRUBIN,TOTAL 0.3 MG/DL (0.2-1.0); BLOOD UREA NITROGEN 13 MG/DL (7-18); CALCIUM LEVEL 8.4 MG/DL (8.5-10.1); CARBON DIOXIDE LEVEL 21 MEQ/L (21-32); CHLORIDE LEVEL 110 MEQ/L (98-107); GLOMERULAR FILTRATION RATE > 60.0 (>56); GLUCOSE, FASTING 68 MG/DL (70-100); POTASSIUM SERUM 3.5 MEQ/L (3.5-5.1); SODIUM LEVEL 138 MEQ/L (136-145); TOTAL PROTEIN 5.5 GM/DL (6.4-8.2)
[2020-03-30] MEDS: VANCOMYCIN HCL 1,000 MG, VIAL MATE ADAPTER 1 EACH in D5W 250 ML IV SCH (06:33)
[2020-03-30] MEDS: HEPARIN SOD (PORCINE) 5000UNITS/ML 1ML VIAL/SYRINGE SQ SCH ×3 (06:33→22:49)
[2020-03-30] MEDS: METOCLOPRAMIDE 5 MG TAB PO SCH ×4 (09:00→21:18)
[2020-03-30] MEDS: DULoxetine 30 MG CAP (CYMBALTA) PO SCH ×2 (09:36→21:18)
[2020-03-30] MEDS: PANTOPRAZOLE 40MG TAB (PROTONIX) PO SCH (09:55)
[2020-03-30] MEDS: lisinopriL 5 MG TAB PO SCH (09:56)
[2020-03-30] MEDS: LEVEMIR (INSULIN DETEMIR) 1 UNITS/0.01ML SC SCH ×2 (10:31→21:19)
[2020-03-30] MEDS ORDERED: METOCLOPRAMIDE 10 MG TAB As Ordered ONE (10:37)
[2020-03-30] MEDS: SUCRALFATE 1 GM TAB PO SCH ×3 (10:40→21:18)
--- NOTE | 2020-03-30 13:53 | IPNPDOC ---
Text Note Date of Service The patient was seen on 03/30/20. NOTE Patient was seen and examined. Doing better today. Complains of slight dizzin ess. PHYSICAL EXAMINATION: - General: Lying in bed with moderate discomfort. Labored breathing, severely dry skin and mucous membrane. - HEENT: Atraumatic, PERRLA. Dry mucous membrane. - CVS: Normal rate and rhythm. - Lungs: No appreciable wheezing / rales / rhonchi. tachypneic. - Abdomen: Soft, Non-distended, Non-tender - Extremities: No extremity swelling, limbs intact - Skin: Warm and dry - Neuro: No focal motor or sensory deficit LABORATORY DATA: See below. MICROBIOLOGY: Please see below. ASSESSMENT AND PLAN: 1. DKA 2/2 Type I DM: Resolved. Levemir 30 bid along with SSI. This all is likely sec to non complaince ac hs glucocheks. Spoke to the patient regarding the dietary and med complaince. ADA soft diet started 2. HTN: Restart PO meds . Monitor BP. 3. HLD: Atorvastatin. 4. Depression: will resume duloxetin 5. Gastroparesis: will resume reglan DVT ppx: HSQ and SCD Code status: Full code VS,Fishbone, I+O VS, Fishbone, I+O Laboratory Tests 03/29/20 21:20 03/30/20 05:04 Vital Signs Date Time Temp Pulse Resp B/P (MAP) Pulse Ox O2 Delivery O2 Flow Rate FiO2 03/30/20 09:56 129/80 03/30/20 08:00 98.5 82 20 100 03/30/20 04:00 Room Air I&O- Last 24 Hours up to 6 AM 03/30/20 06:00 Intake Total 2484 ml Output Total 1350 ml Balance 1134 ml KIM SHOOK MD Mar 30, 2020 13:53
[2020-03-30] MEDS: PANTOPRAZOLE 40MG VIAL (C9113 PER 1) IV SCH (21:18)
[2020-03-31] MEDS: ACETAMINOPHEN TAB 650MG DOSE (2X325MG) PO PRN ×3 (00:22→17:36)
[2020-03-31 04:00] VITALS: BP 117/75
[2020-03-31] MEDS: HEPARIN SOD (PORCINE) 5000UNITS/ML 1ML VIAL/SYRINGE SQ SCH ×3 (05:04→20:20)
[2020-03-31] MEDS: PIPERACILLIN/TAZOBACTAM SOD 4.5 GM in D5W MINI-BAG PLUS 50 ML IV SCH ×4 (05:04→22:18)
[2020-03-31] MEDS: HumaLOG INSULIN (NovoLOG) PER UNIT SC SCH ×4 (07:30→20:16)
[2020-03-31 08:00] VITALS: BP 116/69
[2020-03-31] MEDS: PANTOPRAZOLE 40MG VIAL (C9113 PER 1) IV SCH ×2 (09:52→20:20)
[2020-03-31] MEDS: SUCRALFATE 1 GM TAB PO SCH ×3 (09:53→20:21)
[2020-03-31] MEDS: DULoxetine 30 MG CAP (CYMBALTA) PO SCH ×2 (09:53→20:21)
[2020-03-31] MEDS: LEVEMIR (INSULIN DETEMIR) 1 UNITS/0.01ML SC SCH ×2 (09:53→20:21)
[2020-03-31] MEDS: lisinopriL 5 MG TAB PO SCH (09:54)
--- NOTE | 2020-03-31 10:29 | IPNPDOC ---
Text Note Date of Service The patient was seen on 03/31/20. NOTE Patient was seen and examined. Doing better today. Had an episode of hypoglycemia of 60 PHYSICAL EXAMINATION: - General: Lying in bed with moderate discomfort. Labored breathing, severely dry skin and mucous membrane. - HEENT: Atraumatic, PERRLA. Dry mucous membrane. - CVS: Normal rate and rhythm. - Lungs: No appreciable wheezing / rales / rhonchi. tachypneic. - Abdomen: Soft, Non-distended, Non-tender - Extremities: No extremity swelling, limbs intact - Skin: Warm and dry - Neuro: No focal motor or sensory deficit LABORATORY DATA: See below. MICROBIOLOGY: Please see below. ASSESSMENT AND PLAN: 1. DKA 2/2 Type I DM: Resolved. Levemir decreased to 18 bid as pt became hypoglycemic and SSI continued. DKA is likely sec to non complaince ac hs glucocheks. Spoke to the patient regarding the dietary and med complaince. ADA soft diet started 2. HTN: Restart PO meds . Monitor BP. 3. HLD: Atorvastatin. 4. Depression: will resume duloxetin 5. Gastroparesis: will resume reglan DVT ppx: HSQ and SCD Code status: Full code VS,Fishbone, I+O VS, Fishbone, I+O Vital Signs Date Time Temp Pulse Resp B/P (MAP) Pulse Ox O2 Delivery O2 Flow Rate FiO2 03/31/20 09:54 116/69 03/31/20 04:00 98.7 87 14 97 Room Air I&O- Last 24 Hours up to 6 AM 03/31/20 06:00 Intake Total 2153 ml Output Total 2000 ml Balance 153 ml KIM SHOOK MD Mar 31, 2020 10:29
[2020-03-31 12:00] VITALS: BP 161/89
[2020-03-31 14:30] LABS: CLOSTRIDIUM DIFFICILE PCR POSITIVE (NEGATIVE)
[2020-03-31 14:44] LABS: ALBUMIN 3.5 GM/DL (3.2-5.2); ALT/SGPT 20 U/L (12-78); BILIRUBIN,TOTAL 0.5 MG/DL (0.2-1.0); BLOOD UREA NITROGEN 5 MG/DL (7-18); CALCIUM LEVEL 8.8 MG/DL (8.5-10.1); CARBON DIOXIDE LEVEL 28 MEQ/L (21-32); CHLORIDE LEVEL 106 MEQ/L (98-107); CREATININE FOR GFR 0.69 MG/DL (0.70-1.30); GLOMERULAR FILTRATION RATE > 60.0 (>56); GLUCOSE, FASTING 214 MG/DL (70-100); POTASSIUM SERUM 3.6 MEQ/L (3.5-5.1); SODIUM LEVEL 138 MEQ/L (136-145)
[2020-03-31 16:00] VITALS: BP 110/73
[2020-03-31 16:32] LABS: HEMOGLOBIN A1c 11.4 %
[2020-03-31] MEDS: VANCOMYCIN ORAL SOL 250MG/5ML ORAL SYRINGE PO SCH ×2 (17:33→23:39)
[2020-03-31] MEDS ORDERED: MORPHINE 2 MG/ML 1ML VIAL (J2270) IV ONE (20:15)
[2020-03-31] MEDS ORDERED: ACETAMINOPH W/CODEINE #3 TAB UD PO ONE (21:00)
[2020-03-31 22:00] VITALS: BP 148/88
[2020-04-01] MEDS: PIPERACILLIN/TAZOBACTAM SOD 4.5 GM in D5W MINI-BAG PLUS 50 ML IV SCH (05:31)
[2020-04-01] MEDS: VANCOMYCIN ORAL SOL 250MG/5ML ORAL SYRINGE PO SCH ×4 (05:31→23:32)
[2020-04-01] MEDS: HEPARIN SOD (PORCINE) 5000UNITS/ML 1ML VIAL/SYRINGE SQ SCH ×3 (05:31→21:04)
[2020-04-01 06:00] VITALS: BP 139/89
[2020-04-01 06:01] LABS: HEMATOCRIT 31.5 % (42.0-52.0); HEMOGLOBIN 10.8 g/dl (13.5-17.5); MEAN CORPUSCULAR HEMOGLOBIN 29.2 pg (27.0-33.0); MEAN CORPUSCULAR HGB CONC 34.3 g/dl (32.0-36.5); MEAN CORPUSCULAR VOLUME 85.1 fl (80.0-96.0); PLATELET COUNT, AUTOMATED 216 10^3/uL (150-450); WHITE BLOOD COUNT 3.7 10^3/uL (4.0-10.0)
[2020-04-01 06:30] LABS: ALBUMIN 3.1 GM/DL (3.2-5.2); ALT/SGPT 19 U/L (12-78); BILIRUBIN,TOTAL 0.6 MG/DL (0.2-1.0); BLOOD UREA NITROGEN 6 MG/DL (7-18); CALCIUM LEVEL 8.4 MG/DL (8.5-10.1); CARBON DIOXIDE LEVEL 31 MEQ/L (21-32); CHLORIDE LEVEL 108 MEQ/L (98-107); CREATININE FOR GFR 0.58 MG/DL (0.70-1.30); GLOMERULAR FILTRATION RATE > 60.0 (>56); GLUCOSE, FASTING 103 MG/DL (70-100); POTASSIUM SERUM 3.6 MEQ/L (3.5-5.1); SODIUM LEVEL 142 MEQ/L (136-145); TOTAL PROTEIN 5.5 GM/DL (6.4-8.2)
[2020-04-01] MEDS: DULoxetine 30 MG CAP (CYMBALTA) PO SCH ×2 (07:57→21:02)
[2020-04-01] MEDS: PANTOPRAZOLE 40MG VIAL (C9113 PER 1) IV SCH ×2 (07:57→21:04)
[2020-04-01] MEDS: LEVEMIR (INSULIN DETEMIR) 1 UNITS/0.01ML SC SCH ×2 (07:57→21:06)
[2020-04-01] MEDS: HumaLOG INSULIN (NovoLOG) PER UNIT SC SCH ×4 (07:57→21:00)
[2020-04-01] MEDS: SUCRALFATE 1 GM TAB PO SCH ×3 (07:58→21:02)
[2020-04-01] MEDS: lisinopriL 5 MG TAB PO SCH (07:58)
--- NOTE | 2020-04-01 11:02 | IPNPDOC ---
Text Note Date of Service The patient was seen on 04/01/20. NOTE Patient was seen and examined. Doing better today. But has 5 episodes of diar jacob over night. PHYSICAL EXAMINATION: - General: Lying in bed with moderate discomfort. Labored breathing, severely dry skin and mucous membrane. - HEENT: Atraumatic, PERRLA. Dry mucous membrane. - CVS: Normal rate and rhythm. - Lungs: No appreciable wheezing / rales / rhonchi. tachypneic. - Abdomen: Soft, Non-distended, Non-tender - Extremities: No extremity swelling, limbs intact - Skin: Warm and dry - Neuro: No focal motor or sensory deficit LABORATORY DATA: See below. MICROBIOLOGY: Please see below. ASSESSMENT AND PLAN: 1. DKA 2/2 Type I DM: Resolved. Levemir 18 bid and SSI continued. DKA is likely sec to non complaince ac hs glucocheks. Spoke to the patient regarding the d ietary and med complaince. ADA soft diet 2. Diarrhea : Cdiff positive : PO vanco Started 125 PO q6 3. HLD: Atorvastatin. 4. Depression: duloxetin 5. Gastroparesis: Reglan on hold as diarrhea DVT ppx: HSQ and SCD Code status: Full code VS,Fishbone, I+O VS, Fishbone, I+O Laboratory Tests 03/31/20 13:40 04/01/20 05:30 Vital Signs Date Time Temp Pulse Resp B/P (MAP) Pulse Ox O2 Delivery O2 Flow Rate FiO2 04/01/20 07:58 139/89 04/01/20 06:00 98.7 99 20 99 Room Air I&O- Last 24 Hours up to 6 AM 04/01/20 06:00 Intake Total 880 ml Output Total 2200 ml Balance -1320 ml KIM SHOOK MD Apr 01, 2020 11:02
[2020-04-01 14:00] VITALS: BP 128/89
[2020-04-01 22:00] VITALS: BP 161/91
[2020-04-01 22:30] VITALS: BP 132/85
[2020-04-02] MEDS: VANCOMYCIN ORAL SOL 250MG/5ML ORAL SYRINGE PO SCH ×2 (05:40→11:31)
[2020-04-02] MEDS: HEPARIN SOD (PORCINE) 5000UNITS/ML 1ML VIAL/SYRINGE SQ SCH (05:40)
[2020-04-02 06:00] VITALS: BP 169/89
[2020-04-02] MEDS: HumaLOG INSULIN (NovoLOG) PER UNIT SC SCH ×2 (07:30→11:31)
[2020-04-02] MEDS: LEVEMIR (INSULIN DETEMIR) 1 UNITS/0.01ML SC SCH (08:44)
[2020-04-02] MEDS: PANTOPRAZOLE 40MG VIAL (C9113 PER 1) IV SCH (08:44)
[2020-04-02] MEDS: DULoxetine 30 MG CAP (CYMBALTA) PO SCH (08:44)
[2020-04-02 08:45] VITALS: BP 169/89
[2020-04-02] MEDS: SUCRALFATE 1 GM TAB PO SCH (08:45)
[2020-04-02] MEDS: lisinopriL 5 MG TAB PO SCH (08:45)
[2020-04-02] MEDS ORDERED: FIRV50SO PO (09:14)
[2020-04-02 09:23] LABS: HEMATOCRIT 32.3 % (42.0-52.0); HEMOGLOBIN 10.9 g/dl (13.5-17.5); MEAN CORPUSCULAR HEMOGLOBIN 29.1 pg (27.0-33.0); MEAN CORPUSCULAR HGB CONC 33.7 g/dl (32.0-36.5); MEAN CORPUSCULAR VOLUME 86.4 fl (80.0-96.0); PLATELET COUNT, AUTOMATED 271 10^3/uL (150-450); RED BLOOD COUNT 3.74 10^6/uL (4.30-6.10); WHITE BLOOD COUNT 3.7 10^3/uL (4.0-10.0)
[2020-04-02 09:41] LABS: ALBUMIN 3.5 GM/DL (3.2-5.2); ALT/SGPT 39 U/L (12-78); BILIRUBIN,TOTAL 0.3 MG/DL (0.2-1.0); BLOOD UREA NITROGEN 7 MG/DL (7-18); CARBON DIOXIDE LEVEL 31 MEQ/L (21-32); CHLORIDE LEVEL 106 MEQ/L (98-107); CREATININE FOR GFR 0.56 MG/DL (0.70-1.30); GLOMERULAR FILTRATION RATE > 60.0 (>56); GLUCOSE, FASTING 78 MG/DL (70-100); POTASSIUM SERUM 3.4 MEQ/L (3.5-5.1); SODIUM LEVEL 143 MEQ/L (136-145); TOTAL PROTEIN 5.9 GM/DL (6.4-8.2)
--- NOTE | 2020-04-02 11:45 | DS.PDOC ---
Discharge Summary General Date of Admission Mar 28, 2020 at 21:34 Date of Discharge 04/02/20 Discharge Summary CHIEF COMPLAINT: "sick to my stomach" Final Diagnosis: DKA C-diff colitis HISTORY OF PRESENT ILLNESS: Patient is 59 year old male with Type I DM with hx recurrent admissions for DKA, HTN, HLD, Depression and chronic back pain presented to the ER with complaints of feeling sick to his stomach for the past several days. Symptoms associated with nausea, vomiting, increased thirst and diarrhea. He does not report abdominal pain, chest pain, SOB, fever, chills or any other symptoms apart from what was mentioned. In ER, patient was found to have AG 26, bicarb 4 He very tachypneic and states that it is due to a combination of his back pain and maybe his DKA as well. He lives alone and has no sick contact. Does not report any urinary complaints. DKA protocol was started and as the AG closed , diet and sq insulin with 25 bid of levemer was started. He is non compliant to diet and medication and has an A1c of 11.4. Counselled in detail for diet and medication complaince. Also he started with abd pain and had 3 episodes of diarrhea, and as he got iv vanc and zosyn on the day of admission as his WBC count was elevated and we were trying to r/o infectious causes leading to DKA. He came out positive for Cdiff and was given vanco. On Dc as po vanco is not covered by his insurance , po flagyl 500 tib for 12 more days has been prescribed. He will be started nback on same diose of basiglar and SSI premeal and has been advised to f/u with PCP in 1 week iwth the b/s log for insulin adjustment . He is medically stable for DC PHYSICAL EXAMINATION: - General: Lying in bed with moderate discomfort. Labored breathing, severely dry skin and mucous membrane. - HEENT: Atraumatic, PERRLA. Dry mucous membrane. - CVS: Normal rate and rhythm. - Lungs: No appreciable wheezing / rales / rhonchi. tachypneic. - Abdomen: Soft, Non-distended, Non-tender - Extremities: No extremity swelling, limbs intact - Skin: Warm and dry - Neuro: No focal motor or sensory deficit LABORATORY DATA: See below. MICROBIOLOGY: Please see below. Medications on DC: As per reconcilation lst. All home meds continued and flagyl started. F/U appiontments : F/u with PCP in 1 week Diet: ADA Condition on discharge : Medically optimized for DC Discharge Disposition : Home Total time spend on this discharge including coordination of care, review of chart , documentation and actual patient contact is 35 minutes. Vital Signs/I&Os Vital Signs Date Time Temp Pulse Resp B/P (MAP) Pulse Ox O2 Delivery O2 Flow Rate FiO2 04/02/20 08:45 169/89 04/02/20 06:00 99.0 88 18 97 Room Air I&O- Last 24 Hours up to 6 AM 04/02/20 06:00 Intake Total 2330 ml Output Total 2650 ml Balance -320 ml Laboratory Data Labs 24H Laboratory Tests 2 04/02/20 07:58: Nucleated Red Blood Cells % (auto) 0.0, Anion Gap 6L, Glomerular Filtration Rate > 60.0, Calcium Level 9.0, Total Bilirubin 0.3, Aspartate Amino Transf (AST/SGOT) 42H, Alanine Aminotransferase (ALT/SGPT) 39, Alkaline Phosphatase 73, Total Protein 5.9L, Albumin 3.5, Albumin/Globulin Ratio 1.5 CBC/BMP Laboratory Tests 04/02/20 07:58 Microbiology Microbiology 03/31/20 Stool Occult Blood (MICKEY) - Final, Complete 03/29/20 Blood Culture - Preliminary, Resulted No Growth after 72 hours. All specime... 03/28/20 Blood Culture - Preliminary, Resulted No Growth after 48 hours. All Specime... Discharge Medications Scheduled Aspirin (Aspirin EC) 81 Mg Tab, 81 MG PO DAILY, (Reported) Atorvastatin Calcium (Atorvastatin Calcium) 20 Mg Tablet, 20 MG PO DAILY, (Reported) Duloxetine Hcl (Cymbalta) 60 Mg Cap, 60 MG PO DAILY, (Reported) Duloxetine Hcl (Duloxetine HCl) 30 Mg Cap, 30 MG PO QPM, (Reported) Insulin Glargine,Hum.rec.anlog (Basaglar Kwikpen U-100) 100 Unit/1 Ml Insuln.pen, 65 UNIT SC DAILY, (Reported) Insulin Lispro (Admelog Solostar) 100 Unit/1 Ml Insuln.pen, 1 UNIT SC TID, (Reported) SLIDING SCALE BS 150-200 =8 UNITS 201-250 = 10 UNITS 251-300 =12 UNITS Lisinopril (Lisinopril) 5 Mg Tab, 5 MG PO DAILY, (Reported) Vancomycin HCl (Firvanq) 50 Mg/1 Ml Soln.recon, 125 MG PO Q6H Zolpidem Tartrate (Ambien) 10 Mg Tab, 10 MG PO QHS, (Reported) Scheduled PRN Acetaminophen with Codeine (Acetaminophen-Cod #3 Tablet) 1 Tab Tab, 2 TAB PO q6- 8h PRN for PAIN, (Reported) Allergies Coded Allergies: pregabalin (Verified Allergy, Unknown, 03/28/20) KIM SHOOK MD Apr 02, 2020 11:36
[2020-04-02] MEDS ORDERED: FLAG500T PO (11:47)
--- NOTE | 2020-04-14 16:54 | ECGEPIP ---
[facility] - ED Test Date: 2020-03-28 Pat Name: THELMA GAONA Department: Room: [place] [address] Gender: Male Printer Assistant: VIVIANE : [id number] Requested By: ARIES MEJIAS Order Number: [id number] Reading MD: Terry Mao Measurements Intervals [place] Rate: 87 P: 73 AK: 148 QRS: 64 QRSD: 102 T: 66 QT: 362 QTc: 438 Interpretive Statements SINUS RHYTHM NONSPECIFIC ST & T-WAVE ABNORMALITY BORDERLINE ECG SEE SCANNED DOWNTIME REPORT
--- NOTE | 2020-04-27 08:16 | REP ---
PORTABLE CHEST X-RAY: SINGLE VIEW HISTORY: Leukocytosis. COMPARISON: Chest x-ray 08/30/2019. FINDINGS: Monitoring electrodes are seen. The lungs are well-inflated and clear. Pleural angles are sharp. Heart is not enlarged. There is a skin fold overlying the right upper lateral chest. Pulmonary vasculature is not increased. No bony abnormality is seen. IMPRESSION: No active disease. No infiltrate seen. MTDD
== END 2020-04-02 13:14 | disposition home or self-care (01) | DRG 420 ==
LOC: M ED 18:36 → EDBD 18:36 → M ED INP 21:34 → ENRESERV 21:42 → M ICU 22:55 → M MS5PR 03-31 16:55
PROVIDERS: ADMIT Student in an Organized Health Care Education/Training Program; ATTEND Internal Medicine
DX: E10.10 Type 1 diabetes mellitus with ketoacidosis without coma (principal); A04.72 Enterocolitis due to Clostridium difficile, not specified as recurrent; E10.649 Type 1 diabetes mellitus with hypoglycemia without coma; E10.43 Type 1 diabetes mellitus with diabetic autonomic (poly)neuropathy; I10 Essential (primary) hypertension; F32.9 Major depressive disorder, single episode, unspecified; M54.5 Low back pain; Z79.899 Other long term (current) drug therapy; Z79.82 Long term (current) use of aspirin; Z79.4 Long term (current) use of insulin; Z88.6 Allergy status to analgesic agent

== ENCOUNTER 2020-04-04 18:18 | Emergency (ER) | payer OTHER ==
[~2020-04-04] VITALS: Ht 190.5 cm; Wt 83.2 kg
[~2020-04-04 18:18] MED LIST changes: +ADME100I2 SC; +FIRV50SO PO; +FLAG500T PO; +TYLETAB14 PO
[2020-04-04 19:31] LABS: BASO % 0.4 % (0.0-1.0); EOS # 0.2 10^3/uL (0.0-0.5); EOS % 4.8 % (0.0-3.0); HEMOGLOBIN 10.5 g/dl (13.5-17.5); LYMPH % 39.6 % (24.0-44.0); MEAN CORPUSCULAR HEMOGLOBIN 29.6 pg (27.0-33.0); MEAN CORPUSCULAR HGB CONC 33.9 g/dl (32.0-36.5); MEAN CORPUSCULAR VOLUME 87.3 fl (80.0-96.0); MONO # 0.6 10^3/uL (0.0-0.8); MONO % 12.1 % (0.0-5.0); NEUTROPHILS # 2.2 10^3/uL (1.5-8.5); NEUTROPHILS % 42.9 % (36.0-66.0); PLATELET COUNT, AUTOMATED 348 10^3/uL (150-450); RED BLOOD COUNT 3.55 10^6/uL (4.30-6.10); WHITE BLOOD COUNT 5.1 10^3/uL (4.0-10.0)
[2020-04-04 20:00] LABS: ALBUMIN 3.7 GM/DL (3.2-5.2); ALT/SGPT 101 U/L (12-78); BILIRUBIN,DIRECT 0.1 MG/DL (0.0-0.2); BILIRUBIN,TOTAL 0.3 MG/DL (0.2-1.0); BLOOD UREA NITROGEN 8 MG/DL (7-18); CALCIUM LEVEL 9.2 MG/DL (8.5-10.1); CARBON DIOXIDE LEVEL 30 MEQ/L (21-32); CHLORIDE LEVEL 103 MEQ/L (98-107); GLOMERULAR FILTRATION RATE > 60.0 (>56); GLUCOSE, FASTING 260 MG/DL (70-100); NT-PRO BNP 220 PG/ML (<125); POTASSIUM SERUM 3.8 MEQ/L (3.5-5.1); SODIUM LEVEL 139 MEQ/L (136-145); TOTAL PROTEIN 6.2 GM/DL (6.4-8.2)
--- NOTE | 2020-04-04 21:23 | REPVR ---
PROCEDURE INFORMATION: Exam: US Duplex Lower Extremity Veins, Bilateral Exam date and time: 04/04/2020 9:03 PM Age: 59 years old Clinical indication: Edema, localized; Lower extremity, bilateral; Additional info: Leg swelling TECHNIQUE: Imaging protocol: Real-time duplex ultrasound of the extremities with 2-D boo scale, color Doppler flow and spectral waveform analysis with image documentation. Complete exam focused on the bilateral lower extremity veins. COMPARISON: No relevant prior studies available. FINDINGS: Right deep veins: Unremarkable. The common femoral, femoral, and popliteal veins are patent without thrombus. Normal compressibility, augmentation response and Doppler waveforms. Right superficial veins: Saphenofemoral junction is patent without thrombus. Left deep veins: Unremarkable. The common femoral, femoral, and popliteal veins are patent without thrombus. Normal compressibility, augmentation response and Doppler waveforms. Left superficial veins: Saphenofemoral junction is patent without thrombus. Soft tissues: Unremarkable. IMPRESSION: No deep vein thrombosis in the veins imaged in both lower extremities. Electronically signed by: Chriss Resendiz On 04/04/2020 21:22:40 PM
[2020-04-04 21:30] VITALS: BP 121/70
--- NOTE | 2020-04-30 14:42 | REP ---
PORTABLE CHEST X-RAY CLINICAL: Cough and dyspnea. COMPARISON: 03/28/2020. FINDINGS: Mediastinum and cardiac silhouette are normal/stable. Lung atkinson are clear. No focal consolidation, effusion, pneumothorax. Skeletal structures are intact. IMPRESSION: Stable chest x-ray. No acute cardiopulmonary process. MTDD
== END 2020-04-04 22:06 | disposition home or self-care (01) ==
LOC: M ED 18:18
DX: R22.43 Localized swelling, mass and lump, lower limb, bilateral (principal); E11.9 Type 2 diabetes mellitus without complications; F17.200 Nicotine dependence, unspecified, uncomplicated; Z79.4 Long term (current) use of insulin; Z79.899 Other long term (current) drug therapy; Z88.8 Allergy status to other drugs, medicaments and biological substances

== ENCOUNTER 2020-05-10 21:58 | Emergency (ER) | payer OTHER ==
[~2020-05-10] VITALS: Ht 190.5 cm; Wt 80.1 kg
[2020-05-10 21:59] VITALS: BP 143/83
== END 2020-05-10 22:05 | disposition left against medical advice (07) ==
LOC: M ED 21:58
DX: Z53.21 Procedure and treatment not carried out due to patient leaving prior to being seen by health care provider (principal)

== ENCOUNTER → 2020-05-24 | Outpatient (CLI) | payer OTHER ==
--- NOTE | 2020-05-24 08:03 | REP ---
INDICATION: ABD PAIN COMPARISON: None TECHNIQUE: Real time B-mode boo scale ultrasound examination using curved array transducer. FINDINGS: Liver, spleen, and visualized portions of the pancreas are normal in echotexture, size and appearance. No focal hepatic, pancreatic or splenic lesions are identified. Gallbladder is normal without gallstones, wall thickening, or pericholecystic fluid. There is mild dilatation to the common bile duct at 8.5 mm diameter without obvious obstructing cause. Bilateral kidneys are normal in reniform shape and without hydronephrosis but demonstrate increased central sinus fat and renovascular calcifications suggesting age related changes. Right kidney measures 12.7 x 6.9 x 6.5 cm with a vague 5 cm ovoid area of subtle increased parenchymal echotexture but without irregular vascularity or further obvious abnormality seen to suggest definite mass. Left kidney measures 12.6 x 4.4 x 5.6 cm. Abdominal aorta measures 3.3 cm maximal diameter and demonstrates atherosclerotic changes throughout the visualized course. IMPRESSION: 1. Mildly dilated common bile duct without obvious cholelithiasis or obstructing cause. 2. Findings to suggest age-related renal changes and possible ill-defined area within the right kidney. While this may be normal parenchyma, consider pre and postcontrast CT of the abdomen for further investigation. 3. Atherosclerotic disease to the aorta. <Electronically signed by Neri Acosta > 05/24/20 [id number]
== END ==
LOC: M RAD 06:52
PROVIDERS: ATTEND Physician Assistant
DX: R10.9 Unspecified abdominal pain (principal)

== ENCOUNTER 2020-05-31 15:24 | Outpatient (CLI) | payer OTHER ==
[~2020-05-31] VITALS: Ht 182.9 cm; Wt 81.8 kg
[2020-05-31 15:25] VITALS: BP 142/83
[2020-05-31] MEDS ORDERED: BEZLOTOXUMAB 800 MG in NS 100 ML IV ONE (15:30)
[2020-05-31 17:50] VITALS: BP 107/65
== END 2020-05-31 17:50 | disposition home or self-care (01) ==
LOC: M INFU 15:24
PROVIDERS: ATTEND Internal Medicine Infectious Disease
DX: A04.71 Enterocolitis due to Clostridium difficile, recurrent (principal)
CPT/HCPCS: 96365; 96366; J0565

== ENCOUNTER → 2020-06-03 | Outpatient (REF) | payer OTHER ==
[2020-06-03 17:53] LABS: PERCENT SATURATION 32.1 % (19.7-50.0)
[2020-06-03 17:57] LABS: FOLATE 11.8 NG/ML
== END ==
LOC: M LAB REF 17:06
PROVIDERS: ATTEND Internal Medicine Nephrology
DX: D64.9 Anemia, unspecified (principal)

== ENCOUNTER → 2020-06-10 | Outpatient (CLI) | payer OTHER ==
[~2020-06-10] MED LIST changes: +ISOVUE-370 76% 100ML VIAL As Ordered ONE
--- NOTE | 2020-06-10 16:52 | REP ---
INDICATION: ABN FINDING ON IMAGING W/ HTN RT RENAL MASS FILE ROOM. COMPARISON: Abdominal ultrasound 05/24/2020, CT 08/31/2019 TECHNIQUE: Noncontrast images through the abdomen followed by bolus of 100 mL Isovue 370 the arterial and venous phase imaging well as delayed scans through the abdomen. FINDINGS: The lung bases are clear heart is not enlarged there is no pericardial thickening or effusion. See no hiatal hernia stomach collapsed the liver, spleen, gallbladder and pancreas are unremarkable adrenal glands are normal small bowel loops are fluid filled and not dilated there is scattered stool and gas in the colon without colitis or diverticulitis. Abdominal aorta shows atherosclerotic calcification without aneurysm or dissection. There is no periaortic, retroperitoneal or mesenteric pathologic sized lymphadenopathy. There is no evidence of perforation or free air. Left kidney shows a cortical cyst measuring 11 mm on image 50 of the delayed sequence. There is no other cyst or solid mass. The renal sinus fat was unremarkable. Corticomedullary differentiation and enhancement patterns are normal for both kidneys. No perinephric edema symmetric size for both kidneys. The bone windows show lumbar and lower thoracic spine with some marginal osteophytes and Schmorl's nodes but no destructive lesion or fractures. No malalignment. Posterior elements intact visualized lower ribs are also unremarkable. IMPRESSION: 1. There is no CT evidence for a renal mass on three-phase contrast imaging of the kidneys and following the noncontrast scan. Accordingly, the finding on ultrasound is a pseudo lesion. It may be technical artifact from overlying attenuation of sound by bowel loops. 2. No renal ureteral or bladder stone. An 11 mm cyst noted in the cortex of the left kidney. 3. Atherosclerotic calcifications of the aorta without aneurysm or dissection. No other significant or acute finding. <Electronically signed by Bran Chu > 06/10/20 [id number]
== END ==
LOC: M RAD 14:38
PROVIDERS: ATTEND Internal Medicine Nephrology
DX: E11.9 Type 2 diabetes mellitus without complications (principal); I10 Essential (primary) hypertension; R93.41 Abnormal radiologic findings on diagnostic imaging of renal pelvis, ureter, or bladder
CPT/HCPCS: 74170; Q9967

== ENCOUNTER → 2020-07-08 | Outpatient (REF) | payer OTHER ==
[~2020-07-08] MED LIST changes: -ISOVUE-370 76% 100ML VIAL As Ordered ONE
== END ==
LOC: M LAB REF 17:21
PROVIDERS: ATTEND Internal Medicine Nephrology
DX: R93.41 Abnormal radiologic findings on diagnostic imaging of renal pelvis, ureter, or bladder (principal)

== ENCOUNTER 2020-07-21 14:51 | Inpatient (IN) | payer OTHER ==
[~2020-07-21] VITALS: Ht 190.5 cm; Wt 76.5 kg
[2020-07-21] MEDS: zolPIDEM TARTRATE 5 MG TAB PO SCH (00:44)
[2020-07-21] MEDS ORDERED: NS 1,000 ML IV ONE (15:30)
[2020-07-21] MEDS ORDERED: ONDANSETRON 4MG/2ML VIAL IV ONE (15:30)
[2020-07-21 15:41] LABS: VENOUS PH 7.152 UNITS (7.330-7.430)
[2020-07-21 15:42] LABS: VENOUS BASE EXCESS -15.8 (-2.0-2.0); VENOUS HCO3 12.1 MEQ/L (23.0-27.0); VENOUS O2 SATURATION 85.6 % (60.0-80.0); VENOUS PARTIAL PRESSURE CO2 35.3 mmHg (38.0-50.0); VENOUS PARTIAL PRESSURE O2 56.7 mmHg (30.0-50.0); VENOUS STANDARD HCO3 12.6 MEQ/L; VENOUS TOTAL CO2 13.2 MEQ/L (24.0-28.0)
[2020-07-21 15:48] LABS: BASO % 0.1 % (0.0-1.0); HEMATOCRIT 41.8 % (42.0-52.0); HEMOGLOBIN 13.5 g/dl (13.5-17.5); LYMPH % 7.4 % (24.0-44.0); MEAN CORPUSCULAR HEMOGLOBIN 28.3 pg (27.0-33.0); MEAN CORPUSCULAR HGB CONC 32.3 g/dl (32.0-36.5); MEAN CORPUSCULAR VOLUME 87.6 fl (80.0-96.0); MONO # 0.3 10^3/uL (0.0-0.8); MONO % 2.1 % (0.0-5.0); NEUTROPHILS # 12.3 10^3/uL (1.5-8.5); PLATELET COUNT, AUTOMATED 375 10^3/uL (150-450); RED BLOOD COUNT 4.77 10^6/uL (4.30-6.10); WHITE BLOOD COUNT 13.7 10^3/uL (4.0-10.0)
[2020-07-21 16:24] LABS: ALBUMIN 4.6 GM/DL (3.2-5.2); ALT/SGPT 24 U/L (12-78); BILIRUBIN,DIRECT 0.2 MG/DL (0.0-0.2); BILIRUBIN,TOTAL 0.6 MG/DL (0.2-1.0); LIPASE 32 U/L (73-393); TOTAL PROTEIN 7.8 GM/DL (6.4-8.2)
[2020-07-21 16:24] LABS: RSV AMPLIFICATION NEGATIVE (NEGATIVE)
[2020-07-21 16:25] LABS: ACETONE/KETONE > 46.00 MG/DL (<2.81)
[2020-07-21 16:26] LABS: CALCIUM LEVEL 10.2 MG/DL (8.5-10.1); CREATININE FOR GFR 1.53 MG/DL (0.70-1.30); POTASSIUM SERUM 5.1 MEQ/L (3.5-5.1)
--- NOTE | 2020-07-21 16:45 | REP ---
INDICATION: cough. COMPARISON: Comparison chest x-ray April 04, 2020.. TECHNIQUE: Portable AP sitting chest x-ray. FINDINGS: Monitoring electrodes are present. The lungs are well inflated and clear. The pleural angles are sharp. Heart size is normal. Pulmonary vasculature is not increased. No significant bony abnormality. IMPRESSION: No active disease. <Electronically signed by Francisco Corbin > 07/21/20 [id number]
[2020-07-21] MEDS ORDERED: INSULIN REGULAR IN 0.9 % NACL 100 UNIT in IV 1 EA IV SCH ×4 (17:01→17:50)
[2020-07-21] MEDS ORDERED: INSULIN IV RATE CHANGE DOCUMENTATION ML/HR XX SCH (17:15)
[2020-07-21] MEDS ORDERED: HumuLIN R (REGULAR) INSULIN (NovoLIN R) **100U/ML** PER UNIT IV ONE (17:15)
[2020-07-21 17:27] LABS: CK-MB VALUE MASS 1.1 NG/ML (<3.6); CPK CREATINE PHOSPHOKINASE 55 U/L (39-308); TROPONIN I < 0.02 NG/ML (< 0.10)
[2020-07-21] MEDS ORDERED: NS 1,000 ML IV SCH ×2 (17:44→17:50)
--- NOTE | 2020-07-21 17:46 | HPEPDOC ---
[facility] Medical History & Physical Date of Admission Jul 21, 2020 Date of Service: Jul 21, 2020 Attending Physician: Sandra Peace MD History and Physical CHIEF COMPLAINT: N/v HISTORY OF PRESENT ILLNESS: Patient is a 59 y/o M with PMH of IDDM Type I with hx recurrent admissions (last 03/2020) for DKA, hx of c. diff (03/2020), HTN, HLD, Depression and chronic back pain who presented to the ER with complaints of incr N/V, incr BS over the past several days. The patient states he has had over 10 episodes of nausea with vomiting, nonbloody over the past several days. He's also had associated incre ased weakness, diffuse abdominal pain and dysuria. The patient states that he last had a meal several days ago and has not been able to keep his home medications down. Normally compliant with all of his home medications. He denies diarrhea (recent diagnosis of C. difficile on 03/2020 and was treated with oral vancomycin), fevers, chills, sick contacts, shortness of breath, chest pain, medication changes recently. In ER, VS stable. CXR neg. UA pending urine sample. Ike labs include WBC 13.7, sodium 131, potassium 5.1, creatinine 1.53 (creatinine at baseline is within normal limits] disease, blood sugar 521, AG 18. UA negative for UTI, chest x-ray negative for acute findings. Serum acetone positive. VBG showed pH 7.152/PCO2 35. The patient had no other clear cause for DKA and denied recent hospitalizations or sicknesses. He was started on insulin drip and IV fluids. The patient was admitted by medicine service to the ICU for continued treatment of moderate diabetic ketoacidosis requiring insulin drip. ROS: neg except mentioned above PAST MEDICAL HISTORY: IDDM Type I with hx recurrent admissions (last 03/2020) for DKA HTN HLD Depression Chronic back pain Hx of C. diff PAST SURGICAL HISTORY: Laminectomy b/l hernia repair SOCIAL HISTORY: Smoke 1/2 ppd. Social alcohol use. Denies drug use. FAMILY HISTORY: Father- leukemia ALLERGIES: Please see below. HOME MEDICATIONS: Please see below. PHYSICAL EXAMINATION: VS: please see below CONSTITUTIONAL: No acute distress, resting comfortably, AAO x 3 EYES: PERRLA, EOM intact HENT, MOUTH: Normocephalic, atraumatic, dry mucous membranes NECK: SUPPLE, no JVD, no lymphadenopathy, no carotid bruit CV: Regular rate and rhythm, S1S2 normal, no murmurs/rubs/gallops RESPIRATORY: Clear to auscultation bilaterally, no rales/rhonchi/wheezes GI: BS positive in 4 quadrants, soft, mild diffuse abd tenderness , nondistended, no rebound or guarding, no organomegaly : Deferred MUSCULOSKELETAL: Normal ROM. No cyanosis, clubbing, swelling, joint deformity, extremity edema INTEGUMENTARY: Intact, no rashes, no lesions, no erythema NEUROLOGIC: Cranial Nerves II-XII are intact, no focal deficits PSYCHIATRIC: Mood and affect are normal LABORATORY DATA: Please see below IMAGING: CXR: No active disease ASSESSMENT: Patient is a 59 y/o M with PMH of IDDM Type I with hx recurrent admissions (last 03/2020) for DKA, hx of c. diff (03/2020), HTN, HLD, Depression and chronic back pain admitted by medicine service to the ICU for continued treatment of moderate diabetic ketoacidosis requiring insulin drip. PLAN: Diabetic ketoacidosis, moderate severity -AG 18, BS 521, + ketones, VBG above -Unknown cause, no clear infection cause -Hx of recurrent admissions (last 03/2020) for DKA -Starting on insulin gtt, IVFs at 125 cc/hr, zofran, NPO except water, ice chips -F/u BMP, mag, phos Q4hrs, replace lytes PRN Acute kidney injury likely 2/2 prerenal cause, dehydration -Cr at baseline wnl,this admission 1.53 -Hold ACEi -C/w IVFs at 125 cc/hr, zofran PRN, can have water and Ice chips -F/u Am labs, avoid nephrotoxic meds HTN -Holding home ACEi due to FROILAN HLD -C/w statin Depression -Stable -C/w home duloxetine Chronic back pain -Stable -C/w tylenol PRN Hx of C. diff -Diagnosed in 03/2020 -Treated with PO vancomycin as o/p, followed with Dr. Haas -No diarrhea in 1 week, last BM was formed yesterday -Try to avoid abx if possible -Probiotic with meals when resume PO diet Insomnia -C/w zolpidem GI px -PPI IV DVT px -Heparin SC DISPOSITION: Admitted to ICU for treatment of DKA. Plan is discharge home when medically improved. Vital Signs Vital Signs Date Time Temp Pulse Resp B/P (MAP) Pulse Ox O2 Delivery O2 Flow Rate FiO2 07/21/20 17:30 90 16 150/67 (94) 100 07/21/20 15:31 98.3 07/21/20 14:52 Room Air Laboratory Data Labs 24H Laboratory Tests 2 07/21/20 15:30: Blood Gas Bicarbonate Standard 12.6, Venous Blood pH 7.152L, Venous Blood Partial Pressure CO2 35.3L, Venous Blood Partial Pressure O2 56.7H, Venous Blood Total Carbon Dioxide 13.2L, Venous Blood HCO3 12.1L, Venous Blood Oxygen Saturation 85.6H, Venous Blood Base Excess -15.8L, Anion Gap 18H, Glomerular Filtration Rate 50.0L, Calcium Level 10.2H, Total Bilirubin 0.6, Direct Bilirubin 0.2, Aspartate Amino Transf (AST/SGOT) 4L, Alanine Aminotransferase (ALT/SGPT) 24, Alkaline Phosphatase 74, Total Creatine Kinase 55, Creatine Kinase MB 1.1, Creatine Kinase MB Relative Index 2.00, Troponin I < 0.02, Total Protein 7.8, Albumin 4.6, Albumin/Globulin Ratio 1.4, Lipase 32L, B- Hydroxybutyrate > 46.00H 07/21/20 15:31: Immature Granulocyte % (Auto) 0.4, Neutrophils (%) (Auto) 90.0H, Lymphocytes (%) (Auto) 7.4L, Monocytes (%) (Auto) 2.1, Eosinophils (%) (Auto) 0.0, Basophils (%) (Auto) 0.1, Neutrophils # (Auto) 12.3H, Lymphocytes # (Auto) 1.0L, Monocytes # (Auto) 0.3, Eosinophils # (Auto) 0.0, Basophils # (Auto) 0.0, Nucleated Red Blood Cells % (auto) 0.0, Coronavirus (COVID-19)(PCR) NEGATIVE, Influenza Type A (RT-PCR) NEGATIVE, Influenza Type B (RT-PCR) NEGATIVE, Respiratory Syncytial Virus (PCR) NEGATIVE CBC/BMP Laboratory Tests 07/21/20 15:30 07/21/20 15:31 Home Medications Scheduled Aspirin (Aspirin EC) 81 Mg Tab, 81 MG PO DAILY Atorvastatin Calcium (Atorvastatin Calcium) 20 Mg Tablet, 20 MG PO DAILY Duloxetine Hcl (Cymbalta) 60 Mg Cap, 60 MG PO DAILY Duloxetine Hcl (Duloxetine HCl) 30 Mg Cap, 30 MG PO QHS Insulin Glargine,Hum.rec.anlog (Basaglar Kwikpen U-100) 100 Unit/1 Ml Insuln.pen, 65 UNIT SC DAILY Insulin Lispro (Admelog Solostar) 100 Unit/1 Ml Insuln.pen, 1 UNIT SC TID SLIDING SCALE BS 150-200 =8 UNITS 201-250 = 10 UNITS 251-300 =12 UNITS Lisinopril (Lisinopril) 5 Mg Tab, 5 MG PO DAILY Zolpidem Tartrate (Ambien) 10 Mg Tab, 10 MG PO QHS Scheduled PRN Acetaminophen with Codeine (Acetaminophen-Cod #3 Tablet) 1 Tab Tab, 2 TAB PO q6- 8h PRN for PAIN Ondansetron HCl (Ondansetron HCl) 4 Mg Tablet, 4 MG PO Q4H PRN for NAUSEA OR VOMITING Allergies Coded Allergies: pregabalin (Verified Adverse Reaction, Unknown, LEG SWELLING, 07/21/20) A-FIB/CHADSVASC A-FIB History Current/History of A-Fib/PAF?: No Current PO Anticoag Therapy: No Age/Risk Factor Scoring CHADSVASC: CHADSVASC Response (Comments) Value Age Risk Factor Age < 65 years old 0 Gender Risk Factor Male 0 Hx of CHF No 0 Hx of HTN Yes 1 Hx of Stroke/TIA/or VTE No 0 Hx of Diabetes Yes 1 Hx of Vascular Disease No 0 Total 2 Treatment Treatment ordered: Other Other anticoagulant ordered: heparin Sandra Peace MD Jul 21, 2020 17:46
[2020-07-21] MEDS ORDERED: ONDA-83 PO (17:47)
[2020-07-21] MEDS ORDERED: cefTRIAXone SOD 1 GM in D5W MINI-BAG PLUS 50 ML IV SCH (20:00)
[2020-07-21 23:45] VITALS: BP 105/64
[2020-07-21 23:50] VITALS: BP 127/71
[2020-07-22] VITALS (40 sets, daily range): BP systolic 109–158; BP diastolic 59–79
[2020-07-22] MEDS: D5W/0.45% SODIUM CHLORIDE 1,000 ML IV SCH ×4 (00:33→20:22)
[2020-07-22] MEDS: ONDANSETRON 4MG/2ML VIAL IV PRN ×2 (00:44→09:06)
[2020-07-22] MEDS: HEPARIN SOD (PORCINE) 5000UNITS/ML 1ML VIAL/SYRINGE SC SCH ×4 (00:45→21:01)
[2020-07-22] MEDS: INSULIN IV RATE CHANGE DOCUMENTATION ML/HR XX SCH ×2 (01:05→03:54)
[2020-07-22] MEDS: zolPIDEM TARTRATE 5 MG TAB PO SCH ×2 (01:13→21:02)
[2020-07-22 02:51] LABS: BLOOD UREA NITROGEN 29 MG/DL (7-18); CALCIUM LEVEL 8.6 MG/DL (8.5-10.1); CARBON DIOXIDE LEVEL 21 MEQ/L (21-32); CHLORIDE LEVEL 108 MEQ/L (98-107); CREATININE FOR GFR 1.03 MG/DL (0.70-1.30); GLOMERULAR FILTRATION RATE > 60.0 (>56); GLUCOSE, FASTING 135 MG/DL (70-100); MAGNESIUM LEVEL 2.2 MG/DL (1.8-2.4); POTASSIUM SERUM 3.9 MEQ/L (3.5-5.1); SODIUM LEVEL 139 MEQ/L (136-145)
[2020-07-22 06:02] LABS: HEMATOCRIT 33.3 % (42.0-52.0); HEMOGLOBIN 11.6 g/dl (13.5-17.5); MEAN CORPUSCULAR HEMOGLOBIN 29.1 pg (27.0-33.0); MEAN CORPUSCULAR HGB CONC 34.8 g/dl (32.0-36.5); MEAN CORPUSCULAR VOLUME 83.7 fl (80.0-96.0); PLATELET COUNT, AUTOMATED 292 10^3/uL (150-450); RED BLOOD COUNT 3.98 10^6/uL (4.30-6.10); WHITE BLOOD COUNT 11.2 10^3/uL (4.0-10.0)
[2020-07-22 06:28] LABS: BLOOD UREA NITROGEN 29 MG/DL (7-18); CALCIUM LEVEL 9.1 MG/DL (8.5-10.1); CARBON DIOXIDE LEVEL 22 MEQ/L (21-32); CHLORIDE LEVEL 111 MEQ/L (98-107); CREATININE FOR GFR 0.95 MG/DL (0.70-1.30); GLOMERULAR FILTRATION RATE > 60.0 (>56); GLUCOSE, FASTING 150 MG/DL (70-100); MAGNESIUM LEVEL 2.1 MG/DL (1.8-2.4); PHOSPHORUS LEVEL 1.8 MG/DL (2.5-4.9); POTASSIUM SERUM 3.6 MEQ/L (3.5-5.1); SODIUM LEVEL 138 MEQ/L (136-145)
[2020-07-22] MEDS ORDERED: FLUBLOK(EGG FREE)(QUAD)INFLUENZA VACC 0.5ML SYRINGE 18YRS & OLDER IM SCH (07:30)
[2020-07-22] MEDS ORDERED: LEVEMIR (INSULIN DETEMIR) 1 UNITS/0.01ML SC ONE (08:00)
[2020-07-22] MEDS ORDERED: K-PHOS NEUTRAL 250MG TABLET (SOD.PHOSPHATE/POT.PHOSPHATE) PO ONE (08:00)
[2020-07-22] MEDS: ASPIRIN 81 MG ENTERIC TAB PO SCH (08:55)
[2020-07-22] MEDS: LEVEMIR (INSULIN DETEMIR) 1 UNITS/0.01ML SC SCH (08:55)
[2020-07-22] MEDS: DULoxetine 30 MG CAP (CYMBALTA) PO SCH (08:55)
[2020-07-22] MEDS: ATORVASTATIN 20 MG TAB PO SCH (08:55)
[2020-07-22] MEDS: ACETAMINOPHEN TAB 650MG DOSE (2X325MG) PO PRN (08:56)
[2020-07-22] MEDS ORDERED: PANTOPRAZOLE 40MG VIAL (C9113 PER 1) IV SCH (09:00)
[2020-07-22] MEDS: PANTOPRAZOLE 40MG TAB (PROTONIX) PO SCH (10:58)
[2020-07-22] MEDS ORDERED: GLUCAGON INJ 1MG VIAL SC PRN (11:45)
[2020-07-22] MEDS ORDERED: GLUCOSE 4GM CHEW TABLET PO PRN (11:45)
[2020-07-22] MEDS ORDERED: DEXTROSE 50% 50 ML SYRINGE IV PRN (11:45)
[2020-07-22] MEDS ORDERED: METOCLOPRAMIDE 10 MG TAB PO SCH (12:00)
[2020-07-22] MEDS: HumaLOG INSULIN (NovoLOG) PER UNIT SC SCH ×3 (12:39→21:00)
--- NOTE | 2020-07-22 13:05 | REP ---
INDICATION: abdominal pain, acute on chronic. COMPARISON: Abdomen and pelvis CT studies dated 06/10/2020 and 08/31/2019. TECHNIQUE: The current study is performed without IV or bowel contrast. FINDINGS: The visualized lower lung atkinson are unremarkable. The unenhanced hepatic parenchyma, gallbladder, pancreas, spleen, adrenals, kidneys and abdominal aorta are unremarkable. There is no bowel distention or obstruction. The mesentery is unremarkable. There is a small intraluminal density in the small bowel loop on the left, likely ingested capsule or tablet. Pelvis: The appendix is unremarkable. The bladder is unremarkable. There is no ascites or adenopathy. The pelvic bowel loops are unremarkable. The bladder is unremarkable. IMPRESSION: There is a small focal density within a small bowel loop on the left, likely an ingested tablet or capsule. No bowel distention or obstruction. No focal fluid collection to suggest abscess or hematoma. No ascites. No mass or adenopathy. No pneumoperitoneum. Otherwise, essentially negative CT of the abdomen and pelvis. <Electronically signed by Tio Meadows > 07/22/20 [id number]
--- NOTE | 2020-07-22 13:25 | ECGEPIP ---
[facility] - ED Test Date: 2020-07-21 Pat Name: THELMA GAONA Department: Room: - Gender: Male [employer]: JORDIN : 1960 Requested By: GRACY Khalil Order Number: [id number] Reading MD: Terry Mao Measurements Intervals [place] Rate: 91 P: 86 [place]: 136 QRS: 61 QRSD: 85 T: 90 QT: 329 QTc: 406 Interpretive Statements SINUS RHYTHM NONSPECIFIC ST & T-WAVE ABNORMALITY SIMILAR TO 03/28/20 Electronically Signed on 07-22-2020 13:24:44 EST by Terry Mao
[2020-07-22] MEDS ORDERED: MORPHINE 2 MG/ML 1ML VIAL (J2270) IV PRN (15:00)
--- NOTE | 2020-07-22 15:03 | IPNPDOC ---
Date Seen The patient was seen on 07/22/20. Progress Note SUBJECTIVE: Complains of nausea with dry heaves, started reglan TID. States he was previously on it and it helped, is currently being worked up for chronic abdominal pain. CT abd/pelvis neg for acute issues. Stopped insulin gtt, transitioned to SC levemir, ISS. On D5W until eating more, abd pain so started pain meds. Denies chest pain, incr SOB, fevers, chills. OBJECTIVE: PHYSICAL EXAMINATION: VS: please see below CONSTITUTIONAL: No acute distress but appears uncomfortable, AAO x 3 EYES: PERRLA, EOM intact HENT, MOUTH: Normocephalic, atraumatic, dry mucous membranes NECK: SUPPLE, no JVD, no lymphadenopathy, no carotid bruit CV: Regular rate and rhythm, S1S2 normal, no murmurs/rubs/gallops RESPIRATORY: Clear to auscultation bilaterally, no rales/rhonchi/wheezes GI: abdominal tenderness diffuse, BS positive in 4 quadrants, soft, nondistended, no rebound or guarding, no organomegaly : Deferred MUSCULOSKELETAL: Normal ROM. No cyanosis, clubbing, swelling, joint deformity, extremity edema INTEGUMENTARY: Intact, no rashes, no lesions, no erythema NEUROLOGIC: Cranial Nerves II-XII are intact, no focal deficits PSYCHIATRIC: Mood and affect are normal LABORATORY DATA: Please see below IMAGING: CT abd/pelvis without contrast: There is a small focal density within a small bowel loop on the left, likely an ingested tablet or capsule. No bowel distention or obstruction. No focal fluid collection to suggest abscess or hematoma. No ascites. No mass or adenopathy. No pneumoperitoneum. Otherwise, essentially negative CT of the abdomen and pelvis. CXR: No active disease ASSESSMENT: Patient is a 59 y/o M with PMH of IDDM Type I with hx recurrent admissions (last 03/2020) for DKA, hx of c. diff (03/2020), HTN, HLD, Depression and chronic back pain admitted by medicine service to the ICU for continued treatment of moderate diabetic ketoacidosis requiring insulin drip. PLAN: Diabetic ketoacidosis, moderate severity- resolved -AG closed, BS <150-200 for the past several hours. -Transitioned off insulin gtt this AM, to levemir SC, ISS AC/HS, FS AC/HS, c onsistent carb diet -n/v so started reglan TID, zofran PRN, c/w D5 fluids -Unknown cause, no clear infection cause -Hx of recurrent admissions (last 03/2020) for DKA -Daily labs Nausea/vomiting with abdominal pain poss 2/2 to gastroparesis -Patient states he is being actively worked up by GI and needs scope in near future -CT abd pelvis: No acute issues. -Hx of being on reglan TID but was stopped -Will restart reglan TID for possible gastroparesis pain, zofran PRN -CLD for now, advance as tolerated Hypophosphatemia, acute -250 mg Kphos given HTN -BP stable -Holding home ACEi for now HLD -C/w statin Depression -Stable -C/w home duloxetine Chronic back pain -Stable -C/w tylenol PRN Hx of C. diff -Diagnosed in 03/2020 -Treated with PO vancomycin as o/p, followed with Dr. Haas -No diarrhea in 1 week, last BM was formed yesterday -Try to avoid abx or incr PPI if possible -Probiotic with meals when resume PO diet Insomnia -C/w zolpidem GI px -PPI IV DVT px -Heparin SC Resolved issues: Acute kidney injury likely 2/2 prerenal cause, dehydration DISPOSITION: Switched to med/surg today. Plan is discharge home when medically improved. VS, I&O, 24H, Fishbone Vital Signs/I&O Vital Signs Date Time Temp Pulse Resp B/P (MAP) Pulse Ox O2 Delivery O2 Flow Rate FiO2 07/22/20 12:00 97.3 80 20 131/79 (96) 99 Room Air I&O- Last 24 Hours up to 6 AM 07/22/20 05:59 Intake Total 1720 ml Output Total 0 ml Balance 1720 ml Laboratory Data 24H LABS Laboratory Tests 2 07/21/20 14:56: Bedside Glucose (Misc Panel) 489H 07/21/20 15:30: Blood Gas Bicarbonate Standard 12.6, Venous Blood pH 7.152L, Venous Blood Partial Pressure CO2 35.3L, Venous Blood Partial Pressure O2 56.7H, Venous Blood Total Carbon Dioxide 13.2L, Venous Blood HCO3 12.1L, Venous Blood Oxygen Saturation 85.6H, Venous Blood Base Excess -15.8L, Anion Gap 18H, Glomerular Filtration Rate 50.0L, Calcium Level 10.2H, Total Bilirubin 0.6, Direct Bilirubin 0.2, Aspartate Amino Transf (AST/SGOT) 4L, Alanine Aminotransferase (A LT/SGPT) 24, Alkaline Phosphatase 74, Total Creatine Kinase 55, Creatine Kinase MB 1.1, Creatine Kinase MB Relative Index 2.00, Troponin I < 0.02, Total Protein 7.8, Albumin 4.6, Albumin/Globulin Ratio 1.4, Lipase 32L, B-Hydroxybutyrate > 46.00H 07/21/20 15:31: Immature Granulocyte % (Auto) 0.4, Neutrophils (%) (Auto) 90.0H, Lymphocytes (%) (Auto) 7.4L, Monocytes (%) (Auto) 2.1, Eosinophils (%) (Auto) 0.0, Basophils (%) (Auto) 0.1, Neutrophils # (Auto) 12.3H, Lymphocytes # (Auto) 1.0L, Monocytes # (Auto) 0.3, Eosinophils # (Auto) 0.0, Basophils # (Auto) 0.0, Nucleated Red Blood Cells % (auto) 0.0, Coronavirus (COVID-19)(PCR) NEGATIVE, Influenza Type A (RT-PCR) NEGATIVE, Influenza Type B (RT-PCR) NEGATIVE, Respiratory Syncytial Virus (PCR) NEGATIVE 07/21/20 17:39: Urine Color STRAW, Urine Appearance CLEAR, Urine pH 5.0, Urine Specific [place] 1.023, Urine Protein NEGATIVE, Urine Glucose (UA) 3+H, Urine Ketones 2+H, Urine Blood NEGATIVE, Urine Nitrite NEGATIVE, Urine Bilirubin NEGATIVE, Urine Urobilinogen 0.2, Urine Leukocyte Esterase NEGATIVE, Urine WBC (Auto) 0, Urine RBC (Auto) 1, Urine Hyaline Casts (Auto) 4, Urine Bacteria (Auto) NEGATIVE, Urine Squamous Epithelial Cells 0, Urine Sperm (Auto) 07/21/20 18:32: Bedside Glucose (Misc Panel) 391H 07/21/20 19:10: Magnesium Level 2.4 07/21/20 20:19: Bedside Glucose (Misc Panel) 301H 07/21/20 21:46: Bedside Glucose (Misc Panel) 240H, Magnesium Level 2.3 07/21/20 23:16: Bedside Glucose (Misc Panel) 162H 07/22/20 00:06: Bedside Glucose (Misc Panel) 131H 07/22/20 01:04: Bedside Glucose (Misc Panel) 110H 07/22/20 01:58: Anion Gap 10, Glomerular Filtration Rate > 60.0, Calcium Level 8.6#, Phosphorus Level 2.0L, Magnesium Level 2.2 07/22/20 02:06: Bedside Glucose (Misc Panel) 123H 07/22/20 02:57: Bedside Glucose (Misc Panel) 122H 07/22/20 03:52: Bedside Glucose (Misc Panel) 137H 07/22/20 05:02: Bedside Glucose (Misc Panel) 137H 07/22/20 05:49: Nucleated Red Blood Cells % (auto) 0.0, Anion Gap 5L, Glomerular Filtration Rate > 60.0, Calcium Level 9.1, Phosphorus Level 1.8L, Magnesium Level 2.1 07/22/20 05:54: Bedside Glucose (Misc Panel) 137H 07/22/20 06:58: Bedside Glucose (Misc Panel) 147H 07/22/20 07:59: Bedside Glucose (Misc Panel) 149H 07/22/20 08:34: Urine Color YELLOW, Urine Appearance CLEAR, Urine pH 6.0, Urine Specific [place] 1.023, Urine Protein NEGATIVE, Urine Glucose (UA) 3+H, Urine Ketones 2+H, Urine Blood NEGATIVE, Urine Nitrite NEGATIVE, Urine Bilirubin NEGATIVE, Urine Urobilinogen 0.2, Urine Leukocyte Esterase NEGATIVE, Urine WBC (Auto) 1, Urine RBC (Auto) 0, Urine Hyaline Casts (Auto) 0, Urine Bacteria (Auto) NEGATIVE, Urine Squamous Epithelial Cells 0, Urine Mucus (Auto) SMALL, Urine Sperm (Auto) 07/22/20 09:01: Bedside Glucose (Misc Panel) 153H 07/22/20 10:04: Bedside Glucose (Misc Panel) 202H 07/22/20 11:03: Bedside Glucose (Misc Panel) 168H CBC/BMP Laboratory Tests 07/21/20 15:30 07/21/20 15:31 07/22/20 01:58 07/22/20 05:49 Current Medications Current Medications Medications (Trade) Dose Ordered Sig/Radha Route PRN Reason Start Time Stop Time Status Last Admin Dose Admin Acetaminophen (Tylenol Tab) 650 mg Q6HP PRN PO PAIN / FEVER 07/21/20 18:30 07/22/20 08:56 Aspirin (Ecotrin) 81 mg DAILY PO 07/22/20 09:00 07/22/20 08:55 Atorvastatin Calcium (Lipitor) 20 mg DAILY PO 07/22/20 09:00 07/22/20 08:55 Ceftriaxone Sodium 1 gm/ Dextrose 50 ml @ 100 mls/hr Q24H IV 07/21/20 20:00 07/21/20 18:21 DC Dextrose (Dextrose 50%) 25 ml ASDIRECTED PRN IV SEE LABEL COMMENTS 07/22/20 11:45 Dextrose/Sodium Chloride 1,000 ml @ 125 mls/hr Q8H IV 07/22/20 00:30 07/22/20 12:38 Duloxetine HCl (Cymbalta) 60 mg DAILY PO 07/22/20 09:00 07/22/20 08:55 Glucagon (Glucagon) 1 mg ASDIRECTED PRN SC SEE LABEL COMMENTS 07/22/20 11:45 Glucose (Glucose) 16 GM ASDIRECTED PRN PO SEE LABEL COMMENTS 07/22/20 11:45 Heparin Sodium (Porcine) (Heparin) 5,000 units Q8H SC 07/21/20 22:00 07/22/20 14:14 Home Med (Med Rec Complete!) ASDIRECTED XX 07/21/20 18:00 07/21/20 17:50 DC Influenza Virus Vaccine (Flublok Quad(Egg-Free)18y&Older Influenza) 0.5 ml ASDIRECTED IM 07/22/20 07:30 Insulin Detemir (Levemir Insulin) 25 units QAM SC 07/22/20 09:00 07/22/20 08:55 Insulin Human Lispro (HumaLOG INSULIN) SEE PROTOCOL TABLE AC SC 07/22/20 12:00 07/22/20 12:39 Insulin Human Lispro (HumaLOG INSULIN) SEE PROTOCOL TABLE QHS SC 07/22/20 21:00 Insulin Human Regular 100 unit/ IV Miscellaneous Supplies 100 ml @ 0 mls/hr Q0M IV 07/21/20 17:50 07/22/20 11:53 DC 07/22/20 00:12 Insulin Human Regular 100 unit/ IV Miscellaneous Supplies 100 ml @ 7 mls/hr [id number] IV 07/21/20 17:01 07/21/20 18:10 DC 07/21/20 17:25 Metoclopramide HCl (Reglan) 5 mg AC PO 07/22/20 17:30 Metoclopramide HCl (Reglan) 10 mg AC PO 07/22/20 12:00 07/22/20 12:02 DC 07/22/20 11:59 Non-Formulary Medication (Insulin Iv Rate Change Documentation ml/ Hr) ASDIRECTED XX 07/21/20 17:15 07/21/20 18:10 DC Non-Formulary Medication (Insulin Iv Rate Change Documentation ml/ Hr) ASDIRECTED XX 07/21/20 18:00 07/22/20 11:53 DC 07/22/20 03:54 Ondansetron HCl (ZOFRAN INJection) 4 mg Q6HP PRN IV NAUSEA OR VOMITING 07/21/20 18:30 07/22/20 09:06 Pantoprazole Sodium (Protonix) 40 mg DAILY IV 07/22/20 09:00 07/22/20 08:51 DC Pantoprazole Sodium (Protonix) 40 mg QAM PO 07/22/20 09:00 07/22/20 10:58 Sodium Chloride 1,000 ml @ 125 mls/hr Q8H IV 07/21/20 17:50 07/22/20 00:26 DC 07/21/20 18:18 Sodium Chloride 1,000 ml @ 150 mls/hr Q6H40M IV 07/21/20 17:44 07/22/20 00:05 DC 07/21/20 18:09 Zolpidem Tartrate (Ambien) 10 mg QHS PO 07/21/20 21:00 07/22/20 01:13 Allergies Coded Allergies: pregabalin (Verified Adverse Reaction, Unknown, LEG SWELLING, 07/21/20) Sandra Peace MD Jul 22, 2020 15:03
[2020-07-22] MEDS: METOCLOPRAMIDE INJ 10MG/2ML VIAL (J2765 PER 1) IV SCH ×2 (15:22→21:02)
[2020-07-22] MEDS: KETOROLAC 30 MG/ML 1ML VIAL IV SCH (15:23)
[2020-07-22] MEDS ORDERED: METOCLOPRAMIDE 5 MG TAB PO SCH (17:30)
[2020-07-23] MEDS: KETOROLAC 30 MG/ML 1ML VIAL IV SCH ×4 (00:24→23:04)
[2020-07-23] MEDS: D5W/0.45% SODIUM CHLORIDE 1,000 ML IV SCH ×3 (03:40→21:18)
[2020-07-23] MEDS: HEPARIN SOD (PORCINE) 5000UNITS/ML 1ML VIAL/SYRINGE SC SCH ×3 (05:09→23:03)
[2020-07-23 06:00] VITALS: BP 115/71
[2020-07-23 06:07] LABS: HEMATOCRIT 32.3 % (42.0-52.0); HEMOGLOBIN 10.9 g/dl (13.5-17.5); MEAN CORPUSCULAR HEMOGLOBIN 28.2 pg (27.0-33.0); MEAN CORPUSCULAR HGB CONC 33.7 g/dl (32.0-36.5); MEAN CORPUSCULAR VOLUME 83.7 fl (80.0-96.0); PLATELET COUNT, AUTOMATED 246 10^3/uL (150-450); RED BLOOD COUNT 3.86 10^6/uL (4.30-6.10)
[2020-07-23 06:36] LABS: ALBUMIN 3.3 GM/DL (3.2-5.2); ALT/SGPT 18 U/L (12-78); BILIRUBIN,TOTAL 0.7 MG/DL (0.2-1.0); BLOOD UREA NITROGEN 19 MG/DL (7-18); CALCIUM LEVEL 8.6 MG/DL (8.5-10.1); CARBON DIOXIDE LEVEL 24 MEQ/L (21-32); CHLORIDE LEVEL 107 MEQ/L (98-107); CREATININE FOR GFR 0.78 MG/DL (0.70-1.30); GLOMERULAR FILTRATION RATE > 60.0 (>56); GLUCOSE, FASTING 223 MG/DL (70-100); POTASSIUM SERUM 3.5 MEQ/L (3.5-5.1); SODIUM LEVEL 136 MEQ/L (136-145); TOTAL PROTEIN 5.4 GM/DL (6.4-8.2)
[2020-07-23] MEDS: LEVEMIR (INSULIN DETEMIR) 1 UNITS/0.01ML SC SCH (08:01)
[2020-07-23] MEDS: METOCLOPRAMIDE INJ 10MG/2ML VIAL (J2765 PER 1) IV SCH ×3 (08:01→21:19)
[2020-07-23] MEDS: PANTOPRAZOLE 40MG TAB (PROTONIX) PO SCH (08:02)
[2020-07-23] MEDS: DULoxetine 30 MG CAP (CYMBALTA) PO SCH (08:02)
[2020-07-23] MEDS: ASPIRIN 81 MG ENTERIC TAB PO SCH (08:02)
[2020-07-23] MEDS: ATORVASTATIN 20 MG TAB PO SCH (08:02)
[2020-07-23] MEDS: HumaLOG INSULIN (NovoLOG) PER UNIT SC SCH ×4 (08:02→21:00)
[2020-07-23] MEDS: SUCRALFATE SUSP 1GM/10ML UD PO SCH ×4 (10:53→21:19)
[2020-07-23 14:00] VITALS: BP 145/85
--- NOTE | 2020-07-23 15:49 | IPNPDOC ---
Date Seen The patient was seen on 07/23/20. Progress Note SUBJECTIVE: Started AC/HS sucralfate as patient has pain after eating that is worsened. Reglan TID. Decreased D5W while he is just starting to eat. Denies chest pain, incr SOB, fevers, chills. OBJECTIVE: PHYSICAL EXAMINATION: VS: please see below CONSTITUTIONAL: No acute distress, AAO x 3 EYES: PERRLA, EOM intact HENT, MOUTH: Normocephalic, atraumatic, dry mucous membranes NECK: SUPPLE, no JVD, no lymphadenopathy, no carotid bruit CV: Regular rate and rhythm, S1S2 normal, no murmurs/rubs/gallops RESPIRATORY: Clear to auscultation bilaterally, no rales/rhonchi/wheezes GI: abdominal tenderness diffuse- mild , BS positive in 4 quadrants, soft, nondistended, no rebound or guarding, no organomegaly : Deferred MUSCULOSKELETAL: Normal ROM. No cyanosis, clubbing, swelling, joint deformity, extremity edema INTEGUMENTARY: Intact, no rashes, no lesions, no erythema NEUROLOGIC: Cranial Nerves II-XII are intact, no focal deficits PSYCHIATRIC: Mood and affect are normal LABORATORY DATA: Please see below IMAGING: CT abd/pelvis without contrast: There is a small focal density within a small bowel loop on the left, likely an ingested tablet or capsule. No bowel distention or obstruction. No focal fluid collection to suggest abscess or hematoma. No ascites. No mass or adenopathy. No pneumoperitoneum. Otherwise, essentially negative CT of the abdomen and pelvis. CXR: No active disease ASSESSMENT: Patient is a 59 y/o M with PMH of IDDM Type I with hx recurrent adm issions (last 03/2020) for DKA, hx of c. diff (03/2020), HTN, HLD, Depression and chronic back pain admitted by medicine service to the ICU for continued treatment of moderate diabetic ketoacidosis requiring insulin drip. PLAN: Uncontrolled DM- resolved diabetic ketoacidosis, moderate severity -BS low 200's today -levemir 25 U SC QAM, ISS, FS AC/HS, consistent carb diet -As appetite increases and able to take more food in, decreased D5W to 75 cc/hr (eventually wean off) -n/v: reglan TID, zofran PRN, c/w D5 fluids -Unknown cause, no clear infection cause -Hx of recurrent admissions (last 03/2020) for DKA -Daily labs Nausea/vomiting with abdominal pain poss 2/2 to gastroparesis vs. ulcer? -Patient states he is being actively worked up by GI and needs scope in near future -Tenderness focused mostly in epigastric area, worsened by eating -CT abd pelvis: No acute issues. -Hx of being on reglan TID but was stopped -C/w reglan AC, started sucralfate, zofran PRN -Consistent carb diet, D5W decrasead to 75 cc/hr HTN -BP stable -Holding home ACEi for now HLD -C/w statin Depression -Stable -C/w home duloxetine Chronic back pain -Stable -C/w tylenol PRN Hx of C. diff -Diagnosed in 03/2020 -Treated with PO vancomycin as o/p, followed with Dr. Haas -No diarrhea in 1 week, last BM was formed -Try to avoid abx or incr PPI if possible -Probiotic with meals when resume PO diet Insomnia -C/w zolpidem GI px -PPI IV DVT px -Heparin SC Resolved issues: Acute kidney injury likely 2/2 prerenal cause, dehydration Hypophosphatemia, acute DISPOSITION: PT/OT today. Plan is discharge home when medically improved. VS, I&O, 24H, Onelbone Vital Signs/I&O Vital Signs Date Time Temp Pulse Resp B/P (MAP) Pulse Ox O2 Delivery O2 Flow Rate FiO2 07/23/20 14:00 98.2 81 18 145/85 (105) 99 Room Air I&O- Last 24 Hours up to 6 AM 07/23/20 05:59 Intake Total 3633.9 ml Output Total 1325 ml Balance 2308.9 ml Laboratory Data 24H LABS Laboratory Tests 2 07/22/20 16:47: Bedside Glucose (Misc Panel) 159H 07/22/20 20:22: Bedside Glucose (Misc Panel) 212H 07/23/20 05:35: Nucleated Red Blood Cells % (auto) 0.0, Anion Gap 5L, Glomerular Filtration Rate > 60.0, Calcium Level 8.6, Total Bilirubin 0.7, Aspartate Amino Transf (AST/SGOT) 11, Alanine Aminotransferase (ALT/SGPT) 18, Alkaline Phosphatase 52, Total Protein 5.4#L, Albumin 3.3#, Albumin/Globulin Ratio 1.6 07/23/20 12:19: Bedside Glucose (Misc Panel) 246H CBC/BMP Laboratory Tests 07/23/20 05:35 Current Medications Current Medications Medications (Trade) Dose Ordered Sig/Radha Route PRN Reason Start Time Stop Time Status Last Admin Dose Admin Acetaminophen (Tylenol Tab) 650 mg Q6HP PRN PO PAIN / FEVER 07/21/20 18:30 07/22/20 08:56 Aspirin (Ecotrin) 81 mg DAILY PO 07/22/20 09:00 07/23/20 08:02 Atorvastatin Calcium (Lipitor) 20 mg DAILY PO 07/22/20 09:00 07/23/20 08:02 Ceftriaxone Sodium 1 gm/ Dextrose 50 ml @ 100 mls/hr Q24H IV 07/21/20 20:00 07/21/20 18:21 DC Dextrose (Dextrose 50%) 25 ml ASDIRECTED PRN IV SEE LABEL COMMENTS 07/22/20 11:45 Dextrose/Sodium Chloride 1,000 ml @ 125 mls/hr Q8H IV 07/22/20 00:30 07/23/20 03:40 Duloxetine HCl (Cymbalta) 60 mg DAILY PO 07/22/20 09:00 07/23/20 08:02 Glucagon (Glucagon) 1 mg ASDIRECTED PRN SC SEE LABEL COMMENTS 07/22/20 11:45 Glucose (Glucose) 16 GM ASDIRECTED PRN PO SEE LABEL COMMENTS 07/22/20 11:45 Heparin Sodium (Porcine) (Heparin) 5,000 units Q8H SC 07/21/20 22:00 07/23/20 14:04 Home Med (Med Rec Complete!) ASDIRECTED XX 07/21/20 18:00 07/21/20 17:50 DC Influenza Virus Vaccine (Flublok Quad(Egg-Free)18y&Older Influenza) 0.5 ml ASDIRECTED IM 07/22/20 07:30 Insulin Detemir (Levemir Insulin) 25 units QAM SC 07/22/20 09:00 07/23/20 08:01 Insulin Human Lispro (HumaLOG INSULIN) SEE PROTOCOL TABLE AC SC 07/22/20 12:00 07/23/20 12:44 Insulin Human Lispro (HumaLOG INSULIN) SEE PROTOCOL TABLE QHS SC 07/22/20 21:00 Insulin Human Regular 100 unit/ IV Miscellaneous Supplies 100 ml @ 0 mls/hr Q0M IV 07/21/20 17:50 07/22/20 11:53 DC 07/22/20 00:12 Insulin Human Regular 100 unit/ IV Miscellaneous Supplies 100 ml @ 7 mls/hr [id number] IV 07/21/20 17:01 07/21/20 18:10 DC 07/21/20 17:25 Ketorolac Tromethamine (ToRADol) 15 mg Q8H IV 07/22/20 16:00 07/27/20 15:59 07/23/20 08:01 Metoclopramide HCl (REGLAN INJection) 10 mg TID IV 07/22/20 16:00 07/23/20 08:01 Metoclopramide HCl (Reglan) 5 mg AC PO 07/22/20 17:30 07/22/20 14:53 DC Metoclopramide HCl (Reglan) 10 mg AC PO 07/22/20 12:00 07/22/20 12:02 DC 07/22/20 11:59 Morphine Sulfate (Morphine Sulfate Inj) 1 mg Q6H PRN IV SEVERE PAIN (PS 8-10) 07/22/20 15:00 Non-Formulary Medication (Insulin Iv Rate Change Documentation ml/ Hr) ASDIRECTED XX 07/21/20 17:15 07/21/20 18:10 DC Non-Formulary Medication (Insulin Iv Rate Change Documentation ml/ Hr) ASDIRECTED XX 07/21/20 18:00 07/22/20 11:53 DC 07/22/20 03:54 Ondansetron HCl (ZOFRAN INJection) 4 mg Q6HP PRN IV NAUSEA OR VOMITING 07/21/20 18:30 07/22/20 09:06 Pantoprazole Sodium (Protonix) 40 mg DAILY IV 07/22/20 09:00 07/22/20 08:51 DC Pantoprazole Sodium (Protonix) 40 mg QAM PO 07/22/20 09:00 07/23/20 08:02 Sodium Chloride 1,000 ml @ 125 mls/hr Q8H IV 07/21/20 17:50 07/22/20 00:26 DC 07/21/20 18:18 Sodium Chloride 1,000 ml @ 150 mls/hr Q6H40M IV 07/21/20 17:44 07/22/20 00:05 DC 07/21/20 18:09 Sucralfate (Carafate Suspension) 1 gm ACHS PO 07/23/20 07:30 07/23/20 11:20 Zolpidem Tartrate (Ambien) 10 mg QHS PO 07/21/20 21:00 07/22/20 21:02 Allergies Coded Allergies: pregabalin (Verified Adverse Reaction, Unknown, LEG SWELLING, 07/21/20) Sandra Peace MD Jul 23, 2020 15:49
[2020-07-23] MEDS: ACETAMINOPHEN TAB 650MG DOSE (2X325MG) PO PRN (18:46)
[2020-07-23 22:00] VITALS: BP 148/88
[2020-07-23] MEDS: zolPIDEM TARTRATE 5 MG TAB PO SCH (23:03)
[2020-07-24 06:09] LABS: HEMATOCRIT 32.9 % (42.0-52.0); HEMOGLOBIN 11.1 g/dl (13.5-17.5); MEAN CORPUSCULAR HEMOGLOBIN 28.2 pg (27.0-33.0); MEAN CORPUSCULAR HGB CONC 33.7 g/dl (32.0-36.5); MEAN CORPUSCULAR VOLUME 83.7 fl (80.0-96.0); PLATELET COUNT, AUTOMATED 218 10^3/uL (150-450); RED BLOOD COUNT 3.93 10^6/uL (4.30-6.10); WHITE BLOOD COUNT 3.7 10^3/uL (4.0-10.0)
[2020-07-24] MEDS: HEPARIN SOD (PORCINE) 5000UNITS/ML 1ML VIAL/SYRINGE SC SCH ×3 (06:27→20:53)
[2020-07-24 06:31] LABS: ALBUMIN 3.3 GM/DL (3.2-5.2); ALT/SGPT 23 U/L (12-78); BILIRUBIN,TOTAL 0.6 MG/DL (0.2-1.0); BLOOD UREA NITROGEN 10 MG/DL (7-18); CALCIUM LEVEL 8.4 MG/DL (8.5-10.1); CARBON DIOXIDE LEVEL 28 MEQ/L (21-32); CHLORIDE LEVEL 107 MEQ/L (98-107); CREATININE FOR GFR 0.64 MG/DL (0.70-1.30); GLOMERULAR FILTRATION RATE > 60.0 (>56); GLUCOSE, FASTING 264 MG/DL (70-100); POTASSIUM SERUM 3.8 MEQ/L (3.5-5.1); SODIUM LEVEL 140 MEQ/L (136-145); TOTAL PROTEIN 5.4 GM/DL (6.4-8.2)
[2020-07-24 06:46] VITALS: BP 148/87
[2020-07-24] MEDS: SUCRALFATE SUSP 1GM/10ML UD PO SCH ×4 (09:19→20:52)
[2020-07-24] MEDS: ASPIRIN 81 MG ENTERIC TAB PO SCH (09:19)
[2020-07-24] MEDS: METOCLOPRAMIDE INJ 10MG/2ML VIAL (J2765 PER 1) IV SCH ×3 (09:19→20:53)
[2020-07-24] MEDS: ATORVASTATIN 20 MG TAB PO SCH (09:19)
[2020-07-24] MEDS: DULoxetine 30 MG CAP (CYMBALTA) PO SCH ×2 (09:19→20:53)
[2020-07-24] MEDS: PANTOPRAZOLE 40MG TAB (PROTONIX) PO SCH (09:19)
[2020-07-24] MEDS: HumaLOG INSULIN (NovoLOG) PER UNIT SC SCH ×4 (09:20→20:23)
[2020-07-24] MEDS: KETOROLAC 30 MG/ML 1ML VIAL IV SCH ×3 (09:21→23:41)
[2020-07-24] MEDS: LEVEMIR (INSULIN DETEMIR) 1 UNITS/0.01ML SC SCH (09:21)
[2020-07-24] MEDS: D5W/0.45% SODIUM CHLORIDE 1,000 ML IV SCH (09:23)
[2020-07-24] MEDS: lisinopriL 5 MG TAB PO SCH (10:17)
[2020-07-24 14:00] VITALS: BP 120/65
--- NOTE | 2020-07-24 16:33 | IPNPDOC ---
Date Seen The patient was seen on 07/24/20. Progress Note SUBJECTIVE: Surgery evaluated patient, scope 07/25/20 to r/o ulcer. No significant improvement with sucralfate. Eating very little do to pain in epigastric . NPO after midnight. Denies chest pain, incr SOB, fevers, chills. OBJECTIVE: PHYSICAL EXAMINATION: VS: please see below CONSTITUTIONAL: No acute distress, AAO x 3 EYES: PERRLA, EOM intact HENT, MOUTH: Normocephalic, atraumatic, dry mucous membranes NECK: SUPPLE, no JVD, no lymphadenopathy, no carotid bruit CV: Regular rate and rhythm, S1S2 normal, no murmurs/rubs/gallops RESPIRATORY: Clear to auscultation bilaterally, no rales/rhonchi/wheezes GI: abdominal tenderness localized to epigastric area , BS positive in 4 quadrants, soft, nondistended, no rebound or guarding, no organomegaly : Deferred MUSCULOSKELETAL: Normal ROM. No cyanosis, clubbing, swelling, joint deformity, extremity edema INTEGUMENTARY: Intact, no rashes, no lesions, no erythema NEUROLOGIC: Cranial Nerves II-XII are intact, no focal deficits PSYCHIATRIC: Mood and affect are normal LABORATORY DATA: Please see below IMAGING: CT abd/pelvis without contrast: There is a small focal density within a small bowel loop on the left, likely an ingested tablet or capsule. No bowel distention or obstruction. No focal fluid collection to suggest abscess or hematoma. No ascites. No mass or adenopathy. No pneumoperitoneum. Otherwise, essentially negative CT of the abdomen and pelvis. CXR: No active disease ASSESSMENT: Patient is a 59 y/o M with PMH of IDDM Type I with hx recurrent admissions (last 03/2020) for DKA, hx of c. diff (03/2020), HTN, HLD, Depression and chronic back pain admitted by medicine service to the ICU for continued maryjane atment of moderate diabetic ketoacidosis requiring insulin drip. PLAN: Nausea/vomiting with abdominal pain poss 2/2 to gastroparesis, cannot r/o gastric ulcer? -Very poor appetite due to abdominal pain. Tenderness focused mostly in epigastric area, worsened by eating -Patient states he is being actively worked up by GI and is scheduled to have scope mid-August 2020. -CT abd pelvis: No acute issues. -NPO after midnight for scope to be done by surgery to r/o ulcer 07/25/20 -C/w reglan AC, started sucralfate, zofran PRN -Consistent carb diet, D5W 75 cc/hr -Surgery consulted Uncontrolled DM- resolved DKA -Hx of recurrent admissions (last 03/2020) for DKA -BS 300 this AM -Last HbA1c > 10 in 03/2020. Last lipid panel 2011 showed TG >500, cholesterol elevated -F/u new HbA1c, lipid panel -D/c D5W, start on NSS as he will be NPO after midnight -Levemir incr to 30 U SC QAM, ISS, FS AC/HS, consistent carb diet -N/v: reglan TID, zofran PRN -Daily labs HTN -BP uncontrolled. -Restarted ACEi this AM HLD -last lipid panel 2011: TG >500, High LDL, cholesterol incr -C/w statin Depression -Stable -C/w home duloxetine Chronic back pain -Stable -C/w tylenol PRN Hx of C. diff -Diagnosed in 03/2020 -Treated with PO vancomycin as o/p, followed with Dr. Haas -No diarrhea in 1 week, last BM was formed -Try to avoid abx or incr PPI if possible -Probiotic with meals when resume PO diet Insomnia -C/w zolpidem GI px -PPI DVT px -Heparin SC Resolved issues: Acute kidney injury likely 2/2 prerenal cause, dehydration Hypophosphatemia, acute DISPOSITION: Scope in the AM by surgery to r/o ulcer. Plan is discharge home when medically improved. VS, I&O, 24H, Fishbone Vital Signs/I&O Vital Signs Date Time Temp Pulse Resp B/P (MAP) Pulse Ox O2 Delivery O2 Flow Rate FiO2 07/24/20 14:00 97.4 92 18 120/65 (83) 99 Room Air I&O- Last 24 Hours up to 6 AM 07/24/20 06:00 Intake Total 3870 ml Output Total 2945 ml Balance 925 ml Laboratory Data 24H LABS Laboratory Tests 2 07/23/20 17:21: Bedside Glucose (Misc Panel) 124H 07/23/20 21:26: Bedside Glucose (Misc Panel) 127H 12/19/20 05:47: Nucleated Red Blood Cells % (auto) 0.0, Anion Gap 5L, Glomerular Filtration Rate > 60.0, Calcium Level 8.4L, Total Bilirubin 0.6, Aspartate Amino Transf (AST/SGOT) 11, Alanine Aminotransferase (ALT/SGPT) 23, Alkaline Phosphatase 58, Total Protein 5.4L, Albumin 3.3, Albumin/Globulin Ratio 1.6 07/24/20 06:47: Bedside Glucose (Misc Panel) 272H 07/24/20 11:52: Bedside Glucose (Misc Panel) 320H CBC/BMP Laboratory Tests 07/24/20 05:47 Current Medications Current Medications Medications (Trade) Dose Ordered Sig/Radha Route PRN Reason Start Time Stop Time Status Last Admin Dose Admin Acetaminophen (Tylenol Tab) 650 mg Q6HP PRN PO PAIN / FEVER 07/21/20 18:30 07/23/20 18:46 Aspirin (Ecotrin) 81 mg DAILY PO 07/22/20 09:00 07/24/20 09:19 Atorvastatin Calcium (Lipitor) 20 mg DAILY PO 07/22/20 09:00 07/24/20 09:19 Ceftriaxone Sodium 1 gm/ Dextrose 50 ml @ 100 mls/hr Q24H IV 07/21/20 20:00 07/21/20 18:21 DC Dextrose (Dextrose 50%) 25 ml ASDIRECTED PRN IV SEE LABEL COMMENTS 07/22/20 11:45 Dextrose/Sodium Chloride 1,000 ml @ 75 mls/hr [id number] IV 07/22/20 00:30 07/24/20 09:23 Duloxetine HCl (Cymbalta) 30 mg QHS PO 07/24/20 21:00 Duloxetine HCl (Cymbalta) 60 mg DAILY PO 07/22/20 09:00 07/24/20 09:19 Glucagon (Glucagon) 1 mg ASDIRECTED PRN SC SEE LABEL COMMENTS 07/22/20 11:45 Glucose (Glucose) 16 GM ASDIRECTED PRN PO SEE LABEL COMMENTS 07/22/20 11:45 Heparin Sodium (Porcine) (Heparin) 5,000 units Q8H SC 07/21/20 22:00 07/24/20 13:15 Home Med (Med Rec Complete!) ASDIRECTED XX 07/21/20 18:00 07/21/20 17:50 DC Influenza Virus Vaccine (Flublok Quad(Egg-Free)18y&Older Influenza) 0.5 ml ASDIRECTED IM 07/22/20 07:30 Insulin Detemir (Levemir Insulin) 25 units QAM SC 07/22/20 09:00 07/24/20 09:54 DC 07/24/20 09:21 Insulin Detemir (Levemir Insulin) 30 units QAM SC 07/25/20 09:00 Insulin Human Lispro (HumaLOG INSULIN) SEE PROTOCOL TABLE AC SC 07/22/20 12:00 07/24/20 13:14 Insulin Human Lispro (HumaLOG INSULIN) SEE PROTOCOL TABLE QHS SC 07/22/20 21:00 Insulin Human Regular 100 unit/ IV Miscellaneous Supplies 100 ml @ 0 mls/hr Q0M IV 07/21/20 17:50 07/22/20 11:53 DC 07/22/20 00:12 Insulin Human Regular 100 unit/ IV Miscellaneous Supplies 100 ml @ 7 mls/hr [id number] IV 07/21/20 17:01 07/21/20 18:10 DC 07/21/20 17:25 Ketorolac Tromethamine (ToRADol) 15 mg Q8H IV 07/22/20 16:00 07/27/20 15:59 07/24/20 09:21 Lisinopril (Prinivil) 5 mg DAILY PO 07/24/20 09:00 07/24/20 10:17 Metoclopramide HCl (REGLAN INJection) 10 mg TID IV 07/22/20 16:00 07/24/20 09:19 Metoclopramide HCl (Reglan) 5 mg AC PO 07/22/20 17:30 07/22/20 14:53 DC Metoclopramide HCl (Reglan) 10 mg AC PO 07/22/20 12:00 07/22/20 12:02 DC 07/22/20 11:59 Morphine Sulfate (Morphine Sulfate Inj) 1 mg Q6H PRN IV SEVERE PAIN (PS 8-10) 07/22/20 15:00 Non-Formulary Medication (Insulin Iv Rate Change Documentation ml/ Hr) ASDIRECTED XX 07/21/20 17:15 07/21/20 18:10 DC Non-Formulary Medication (Insulin Iv Rate Change Documentation ml/ Hr) ASDIRECTED XX 07/21/20 18:00 07/22/20 11:53 DC 07/22/20 03:54 Ondansetron HCl (ZOFRAN INJection) 4 mg Q6HP PRN IV NAUSEA OR VOMITING 07/21/20 18:30 07/22/20 09:06 Pantoprazole Sodium (Protonix) 40 mg DAILY IV 07/22/20 09:00 07/22/20 08:51 DC Pantoprazole Sodium (Protonix) 40 mg QAM PO 07/22/20 09:00 07/24/20 09:19 Sodium Chloride 1,000 ml @ 125 mls/hr Q8H IV 07/21/20 17:50 07/22/20 00:26 DC 07/21/20 18:18 Sodium Chloride 1,000 ml @ 150 mls/hr Q6H40M IV 07/21/20 17:44 07/22/20 00:05 DC 07/21/20 18:09 Sucralfate (Carafate Suspension) 1 gm ACHS PO 07/23/20 07:30 07/24/20 13:14 Zolpidem Tartrate (Ambien) 10 mg QHS PO 07/21/20 21:00 07/23/20 23:03 Allergies Coded Allergies: pregabalin (Verified Adverse Reaction, Unknown, LEG SWELLING, 07/21/20) Sandra Peace MD Jul 24, 2020 16:32
[2020-07-24] MEDS ORDERED: NS 1,000 ML IV SCH (17:00)
[2020-07-24 18:17] LABS: HEMOGLOBIN A1c 10.7 %
[2020-07-24 18:19] LABS: CHOLESTEROL RISK RATIO 4.21 (<5)
[2020-07-24] MEDS: zolPIDEM TARTRATE 5 MG TAB PO SCH (20:53)
[2020-07-24 22:00] VITALS: BP 130/85
[2020-07-25] VITALS (12 sets, daily range): BP systolic 77–180; BP diastolic 40–100
[2020-07-25] MEDS: HEPARIN SOD (PORCINE) 5000UNITS/ML 1ML VIAL/SYRINGE SC SCH ×3 (05:02→20:17)
[2020-07-25 06:16] LABS: HEMATOCRIT 35.4 % (42.0-52.0); MEAN CORPUSCULAR HEMOGLOBIN 28.4 pg (27.0-33.0); MEAN CORPUSCULAR HGB CONC 33.9 g/dl (32.0-36.5); MEAN CORPUSCULAR VOLUME 83.9 fl (80.0-96.0); PLATELET COUNT, AUTOMATED 219 10^3/uL (150-450); RED BLOOD COUNT 4.22 10^6/uL (4.30-6.10); WHITE BLOOD COUNT 3.8 10^3/uL (4.0-10.0)
[2020-07-25 06:39] LABS: ALBUMIN 3.6 GM/DL (3.2-5.2); ALT/SGPT 27 U/L (12-78); BILIRUBIN,TOTAL 0.5 MG/DL (0.2-1.0); BLOOD UREA NITROGEN 8 MG/DL (7-18); CALCIUM LEVEL 8.8 MG/DL (8.5-10.1); CARBON DIOXIDE LEVEL 28 MEQ/L (21-32); CHLORIDE LEVEL 105 MEQ/L (98-107); CREATININE FOR GFR 0.66 MG/DL (0.70-1.30); GLOMERULAR FILTRATION RATE > 60.0 (>56); GLUCOSE, FASTING 250 MG/DL (70-100); POTASSIUM SERUM 3.8 MEQ/L (3.5-5.1); SODIUM LEVEL 139 MEQ/L (136-145)
[2020-07-25] MEDS: HumaLOG INSULIN (NovoLOG) PER UNIT SC SCH ×4 (07:30→19:49)
[2020-07-25] MEDS: KETOROLAC 30 MG/ML 1ML VIAL IV SCH ×3 (08:00→23:59)
[2020-07-25] MEDS: LEVEMIR (INSULIN DETEMIR) 1 UNITS/0.01ML SC SCH (08:57)
[2020-07-25] MEDS: METOCLOPRAMIDE INJ 10MG/2ML VIAL (J2765 PER 1) IV SCH ×3 (08:57→20:16)
[2020-07-25] MEDS: ASPIRIN 81 MG ENTERIC TAB PO SCH (08:58)
[2020-07-25] MEDS: PANTOPRAZOLE 40MG TAB (PROTONIX) PO SCH (08:58)
[2020-07-25] MEDS: SUCRALFATE SUSP 1GM/10ML UD PO SCH ×4 (08:58→20:17)
[2020-07-25] MEDS: DULoxetine 30 MG CAP (CYMBALTA) PO SCH ×2 (08:58→20:17)
[2020-07-25] MEDS: lisinopriL 5 MG TAB PO SCH (08:58)
[2020-07-25] MEDS: ATORVASTATIN 20 MG TAB PO SCH (08:59)
[2020-07-25] MEDS ORDERED: LEVEMIR (INSULIN DETEMIR) 1 UNITS/0.01ML SC SCH (09:00)
[2020-07-25] MEDS ORDERED: ATORVASTATIN 20 MG TAB PO SCH (09:00)
[2020-07-25] MEDS ORDERED: FENOFIBRATE 145 MG TAB (TRICOR) PO SCH (09:00)
[2020-07-25] MEDS ORDERED: propofoL 200 MG/20 ML VIAL As Ordered ONE (10:46)
[2020-07-25] MEDS ORDERED: LIDOCAINE 2% 100MG/5ML SDV (FOR ANES.) As Ordered ONE (10:46)
[2020-07-25 11:29] LABS: HEMATOCRIT 35.5 % (42.0-52.0); HEMOGLOBIN 11.8 g/dl (13.5-17.5); MEAN CORPUSCULAR HEMOGLOBIN 27.9 pg (27.0-33.0); MEAN CORPUSCULAR HGB CONC 33.2 g/dl (32.0-36.5); MEAN CORPUSCULAR VOLUME 83.9 fl (80.0-96.0); PLATELET COUNT, AUTOMATED 239 10^3/uL (150-450); RED BLOOD COUNT 4.23 10^6/uL (4.30-6.10); WHITE BLOOD COUNT 4.6 10^3/uL (4.0-10.0)
--- NOTE | 2020-07-25 11:48 | CR ---
CONSULTATION DATE: 07/24/2020 BRIEF HISTORY OF PRESENT ILLNESS: Patient is a 59-year-old diabetic male with brittle diabetes who has had some problems with epigastric pain ever since he had an episode of C. difficile colitis and since that time he has had poor oral intake and has had problems with DKA. He is currently re-admitted for DKA and I am asked to see him for his epigastric pain. In addition he has a planned outpatient visit with Dr. Choudhary early August for epigastric pain work-up/EGD. The Hospitalist is asking me to proceed with an endoscopy earlier to rule out ulcer, gastroparesis, etc. He has not had any blood per rectum; does have nausea, does have vomiting at times, non-bloody. Has no fevers or chills, no diarrhea, decreased bowel movements. PAST MEDICAL AND SURGICAL HISTORY: Significant for: 1. Type-1 diabetes mellitus with admissions for DKA. 2. Hypertension. 3. Hyperlipidemia. 4. Depression. 5. Chronic back pain. 6. History of C. diff. 7. History of bilateral hernia repair. 8. History of laminectomy. 9. History of smoking. MEDICATIONS: Include: 1. Aspirin. 2. Atorvastatin. 3. Cymbalta. 4. Duloxetine. 5. insulin 6. Lisinopril. 7. Zolpidem. 8. Tylenol #3. 9. Zofran. PHYSICAL EXAMINATION: Exam reveals a 59-year-old male who looks older than stated age. HEENT: Unremarkable. Neck: Supple without adenopathy. Lungs: Clear to auscultation. Heart: Regular. Abdomen: Soft, nondistended, mildly tender to deep palpation in the epigastric area without guarding, rebound or peritoneal signs. IMPRESSION AND PLAN: Patient has epigastric pain most likely secondary to gastritis as the mostly likely etiology. I do feel that he needs to be on a proton pump inhibitor twice a day, Carafate four times a day. It is less likely that it is associated with gastroparesis, but it is also a possibility at this time and we will evaluate that as well to see if there is any food/bezoar; however, this was not apparent on his CT scan and did not reveal a dilated stomach or evidence of food within the stomach itself. I am not seeing any significant hiatal hernia and no evidence of small bowel obstruction. Patient has most likely gastritis/peptic ulcer disease as his primary etiology. At this point I recommend twice a day Protonix, Carafate four times a day. may need to stop his aspirin for a short period of time as well as continue with Reglan is a reasonable option for now although he tried a low dose as an outpatient, did not have any side effects with this it may be more reasonable to add as you have done the Reglan 10 mg. we will plan on EGD tomorrow, will keep him n.p.o. after midnight. Risks as well as benefits have been discussed with the patient and he agrees to proceed with intervention.
[2020-07-25] MEDS ORDERED: HumaLOG INSULIN (NovoLOG) PER UNIT As Ordered ONE (12:42)
[2020-07-25] MEDS ORDERED: ONDANSETRON 4MG/2ML VIAL IV PRN (13:00)
[2020-07-25] MEDS ORDERED: HumaLOG INSULIN (NovoLOG) PER UNIT SC ONE (13:00)
[2020-07-25] MEDS ORDERED: LR 1,000 ML IV SCH (13:00)
[2020-07-25] MEDS ORDERED: METOCLOPRAMIDE INJ 10MG/2ML VIAL (J2765 PER 1) IV PRN (13:00)
--- NOTE | 2020-07-25 16:51 | IPNPDOC ---
Date Seen The patient was seen on 07/25/20. Progress Note SUBJECTIVE: OR today for scope, found no delayed emptying but say gastritis in proximal stomach and irritation in distal esophagitis that appeared to be healing. No hypoglycemic episodes. Denies chest pain, incr SOB, fevers, chills. OBJECTIVE: PHYSICAL EXAMINATION: VS: please see below CONSTITUTIONAL: appears uncomfortable but AAO x 3 EYES: PERRLA, EOM intact HENT, MOUTH: Normocephalic, atraumatic, dry mucous membranes NECK: SUPPLE, no JVD, no lymphadenopathy, no carotid bruit CV: Regular rate and rhythm, S1S2 normal, no murmurs/rubs/gallops RESPIRATORY: Clear to auscultation bilaterally, no rales/rhonchi/wheezes GI: abdominal tenderness localized to epigastric area , BS positive in 4 quadrants, soft, nondistended, no rebound or guarding, no organomegaly : Deferred MUSCULOSKELETAL: Normal ROM. No cyanosis, clubbing, swelling, joint deformity, extremity edema INTEGUMENTARY: Intact, no rashes, no lesions, no erythema NEUROLOGIC: Cranial Nerves II-XII are intact, no focal deficits PSYCHIATRIC: Mood and affect are normal LABORATORY DATA: Please see below IMAGING: CT abd/pelvis without contrast: There is a small focal density within a small bowel loop on the left, likely an ingested tablet or capsule. No bowel distention or obstruction. No focal fluid collection to suggest abscess or hematoma. No ascites. No mass or adenopathy. No pneumoperitoneum. Otherwise, essentially negative CT of the abdomen and pelvis. CXR: No active disease ASSESSMENT: Patient is a 59 y/o M with PMH of IDDM Type I with hx recurrent admissions (last 03/2020) for DKA, hx of c. diff (03/2020), HTN, HLD, Depression and chronic back pain admitted by medicine service to the ICU for continued treatment of moderate diabetic ketoacidosis requiring insulin drip. PLAN: Nausea/vomiting with abdominal pain poss 2/2 to gastroparesis, gastritis, esophagitis -Very poor appetite due to abdominal pain. Tenderness focused mostly in epigastric area, worsened by eating -Patient states he is being actively worked up by GI and is scheduled to have scope mid-August 2020. -CT abd pelvis: No acute issues. -Endoscopy done today: no delayed emptying but say gastritis in proximal st omach and irritation in distal esophagitis that appeared to be healing. -GI appt in several weeks can f/u path from scope -C/w consistent carb diet, reglan AC, started sucralfate, zofran PRN, incr PPI to BID -H. pylori ordered -Surgery following Uncontrolled DM- resolved DKA -Hx of recurrent admissions (last 03/2020) for DKA -BS 200's -Last HbA1c > 10 in 03/2020. Last lipid panel 2011 showed TG >500, cholesterol elevated -HbA1c 10.7, lipid panel unremarkable -Consistent carb diet -Levemir QAM, ISS, FS AC/HS, consistent carb diet -N/v: reglan TID, zofran PRN -Daily labs HTN -BP uncontrolled. -Restarted ACEi HLD -lipid panel unremarkable -C/w statin Depression -Stable -C/w home duloxetine Chronic back pain -Stable -C/w tylenol PRN Hx of C. diff -Diagnosed in 03/2020 -Treated with PO vancomycin as o/p, followed with Dr. Haas -No diarrhea in > 1 week, last BM was formed -Try to avoid abx -Probiotic with meals Insomnia -C/w zolpidem GI px -PPI incr to BID DVT px -Heparin SC Resolved issues: Acute kidney injury likely 2/2 prerenal cause, dehydration Hypophosphatemia, acute DISPOSITION: Plan is to resume diet, see how he does in AM. Unfortunately will not be able to completely take away discomfort with eating per surgery. He will need to f/u with GI after discharge and c/w current meds. Hoping for d/c in the AM. VS, I&O, 24H, Fishbone Vital Signs/I&O Vital Signs Date Time Temp Pulse Resp B/P (MAP) Pulse Ox O2 Delivery O2 Flow Rate FiO2 07/25/20 16:05 98.7 90 18 118/76 (90) 100 Room Air I&O- Last 24 Hours up to 6 AM 07/25/20 06:00 Intake Total 2280 ml Output Total 6025 ml Balance -3745 ml Laboratory Data 24H LABS Laboratory Tests 2 07/24/20 17:21: Estimated Mean Plasma Glucose 260H, Hemoglobin A1c 10.7, Triglycerides Level 115, Total Cholesterol 160, LDL Cholesterol 99, Non-HDL Cholesterol (LDL + VLDL) 122, Total HDL Cholesterol 38L, Cholesterol/HDL Ratio 4.210 07/24/20 20:20: Bedside Glucose (Misc Panel) 73 07/25/20 01:04: Bedside Glucose (Misc Panel) 127H 07/25/20 05:52: Nucleated Red Blood Cells % (auto) 0.0, Anion Gap 6L, Glomerular Filtration Rate > 60.0, Calcium Level 8.8, Total Bilirubin 0.5, Aspartate Amino Transf (AST/SGOT) 16, Alanine Aminotransferase (ALT/SGPT) 27, Alkaline Phosphatase 70, Total Protein 6.0L, Albumin 3.6, Albumin/Globulin Ratio 1.5 07/25/20 08:35: Nucleated Red Blood Cells % (auto) 0.0 07/25/20 12:30: Bedside Glucose (Misc Panel) 307H 07/25/20 16:12: Bedside Glucose (Misc Panel) 157H CBC/BMP Laboratory Tests 07/25/20 05:52 07/25/20 08:35 Current Medications Current Medications Medications (Trade) Dose Ordered Sig/Radha Route PRN Reason Start Time Stop Time Status Last Admin Dose Admin Acetaminophen (Tylenol Tab) 650 mg Q6HP PRN PO PAIN / FEVER 07/21/20 18:30 07/23/20 18:46 Aspirin (Ecotrin) 81 mg DAILY PO 07/22/20 09:00 07/25/20 08:58 Atorvastatin Calcium (Lipitor) 20 mg DAILY PO 07/22/20 09:00 07/24/20 16:24 DC 07/24/20 09:19 Atorvastatin Calcium (Lipitor) 20 mg DAILY PO 07/25/20 09:00 07/25/20 08:59 Atorvastatin Calcium (Lipitor) 40 mg DAILY PO 07/25/20 09:00 07/24/20 16:26 DC Ceftriaxone Sodium 1 gm/ Dextrose 50 ml @ 100 mls/hr Q24H IV 07/21/20 20:00 07/21/20 18:21 DC Dextrose (Dextrose 50%) 25 ml ASDIRECTED PRN IV SEE LABEL COMMENTS 07/22/20 11:45 Dextrose/Sodium Chloride 1,000 ml @ 75 mls/hr [id number] IV 07/22/20 00:30 07/24/20 16:28 DC 12/19/20 09:23 Duloxetine HCl (Cymbalta) 30 mg QHS PO 07/24/20 21:00 07/24/20 20:53 Duloxetine HCl (Cymbalta) 60 mg DAILY PO 07/22/20 09:00 07/25/20 08:58 Fenofibrate (Tricor) 145 mg DAILY PO 07/25/20 09:00 07/24/20 16:26 DC Glucagon (Glucagon) 1 mg ASDIRECTED PRN SC SEE LABEL COMMENTS 07/22/20 11:45 Glucose (Glucose) 16 GM ASDIRECTED PRN PO SEE LABEL COMMENTS 07/22/20 11:45 Heparin Sodium (Porcine) (Heparin) 5,000 units Q8H SC 07/21/20 22:00 07/25/20 14:11 Home Med (Med Rec Complete!) ASDIRECTED XX 07/21/20 18:00 07/21/20 17:50 DC Influenza Virus Vaccine (Flublok Quad(Egg-Free)18y&Older Influenza) 0.5 ml ASDIRECTED IM 07/22/20 07:30 Insulin Detemir (Levemir Insulin) 18 units QAM SC 07/25/20 09:00 07/25/20 08:57 Insulin Detemir (Levemir Insulin) 25 units QAM SC 07/22/20 09:00 07/24/20 09:54 DC 07/24/20 09:21 Insulin Detemir (Levemir Insulin) 30 units QAM SC 07/25/20 09:00 07/25/20 08:25 DC Insulin Human Lispro (HumaLOG INSULIN) SEE PROTOCOL TABLE AC SC 07/22/20 12:00 07/24/20 17:27 Insulin Human Lispro (HumaLOG INSULIN) SEE PROTOCOL TABLE QHS SC 07/22/20 21:00 Insulin Human Regular 100 unit/ IV Miscellaneous Supplies 100 ml @ 0 mls/hr Q0M IV 07/21/20 17:50 07/22/20 11:53 DC 07/22/20 00:12 Insulin Human Regular 100 unit/ IV Miscellaneous Supplies 100 ml @ 7 mls/hr [id number] IV 07/21/20 17:01 07/21/20 18:10 DC 07/21/20 17:25 Ketorolac Tromethamine (ToRADol) 15 mg Q8H IV 07/22/20 16:00 07/27/20 15:59 07/24/20 09:21 Lactated Ringer's 1,000 ml @ 100 mls/hr Q10H IV 07/25/20 13:00 07/25/20 14:00 DC Lisinopril (Prinivil) 5 mg DAILY PO 07/24/20 09:00 07/25/20 08:58 Metoclopramide HCl (REGLAN INJection) 10 mg Q6HP PRN IV NAUSEA OR VOMITING 07/25/20 13:00 07/25/20 14:00 DC Metoclopramide HCl (REGLAN INJection) 10 mg TID IV 07/22/20 16:00 07/25/20 08:57 Metoclopramide HCl (Reglan) 5 mg AC PO 07/22/20 17:30 07/22/20 14:53 DC Metoclopramide HCl (Reglan) 10 mg AC PO 07/22/20 12:00 07/22/20 12:02 DC 07/22/20 11:59 Morphine Sulfate (Morphine Sulfate Inj) 1 mg Q6H PRN IV SEVERE PAIN (PS 8-10) 07/22/20 15:00 Non-Formulary Medication (Insulin Iv Rate Change Documentation ml/ Hr) ASDIRECTED XX 07/21/20 17:15 07/21/20 18:10 DC Non-Formulary Medication (Insulin Iv Rate Change Documentation ml/ Hr) ASDIRECTED XX 07/21/20 18:00 07/22/20 11:53 DC 07/22/20 03:54 Ondansetron HCl (ZOFRAN INJection) 4 mg Q4HP PRN IV NAUSEA OR VOMITING 07/25/20 13:00 07/25/20 14:00 DC Ondansetron HCl (ZOFRAN INJection) 4 mg Q6HP PRN IV NAUSEA OR VOMITING 07/21/20 18:30 07/22/20 09:06 Pantoprazole Sodium (Protonix) 40 mg DAILY IV 07/22/20 09:00 07/22/20 08:51 DC Pantoprazole Sodium (Protonix) 40 mg QAM PO 07/22/20 09:00 07/25/20 08:58 Sodium Chloride 1,000 ml @ 75 mls/hr [id number] IV 07/24/20 17:00 07/25/20 06:59 DC 07/24/20 17:27 Sodium Chloride 1,000 ml @ 125 mls/hr Q8H IV 07/21/20 17:50 07/22/20 00:26 DC 07/21/20 18:18 Sodium Chloride 1,000 ml @ 150 mls/hr Q6H40M IV 07/21/20 17:44 07/22/20 00:05 DC 07/21/20 18:09 Sucralfate (Carafate Suspension) 1 gm ACHS PO 07/23/20 07:30 07/25/20 08:58 Zolpidem Tartrate (Ambien) 10 mg QHS PO 07/21/20 21:00 07/24/20 20:53 Allergies Coded Allergies: pregabalin (Verified Adverse Reaction, Unknown, LEG SWELLING, 07/21/20) Sandra Peace MD Jul 25, 2020 16:51
[2020-07-25] MEDS: ACETAMINOPHEN TAB 650MG DOSE (2X325MG) PO PRN (18:06)
[2020-07-25] MEDS: zolPIDEM TARTRATE 5 MG TAB PO SCH ×2 (20:17→20:20)
--- NOTE | 2020-07-25 20:57 | IPN ---
PROGRESS NOTE DATE: 07/25/2020 Patient overnight has been stable, not complaining of any significant abdominal pain although he states that he is still at baseline feeling some epigastric discomfort and some nausea. He has had no fevers or chills this morning and his white count has been fine and hematocrit has been stable. His abdomen is soft, nontender, nondistended although he does have some mild discomfort in the epigastric area without significant rebound or peritoneal sign. The plan is to proceed with an EGD today. Risks as well as benefits have been discussed with him at length and he agrees to proceed with this here today.
[2020-07-26] VITALS (7 sets, daily range): BP systolic 84–149; BP diastolic 53–95
[2020-07-26] MEDS: HEPARIN SOD (PORCINE) 5000UNITS/ML 1ML VIAL/SYRINGE SC SCH ×3 (05:11→20:38)
--- NOTE | 2020-07-26 06:19 | RO ---
OPERATIVE NOTE DATE OF OPERATION: 07/22/2020 PREOPERATIVE DIAGNOSIS: Epigastric pain, nausea, vomiting. POSTOPERATIVE DIAGNOSIS: Gastritis and reflux esophagitis. PROCEDURE: Esophagogastroduodenoscopy (EGD) with gastric biopsy. SURGEON: Olaf Combs Jr., MD ANESTHESIA: IV sedation/propofol. ESTIMATED BLOOD LOSS: Minimal. FLUIDS: Crystalloid. BRIEF PROCEDURE SUMMARY: The patient was brought to the operating room and was given IV sedation, placed in the left lateral decubitus position and the gastroscope was inserted into the posterior oropharynx down into the esophagus without difficulty. Scope was slipped into the stomach down into the distal stomach where there was some mild gastritis appreciated in the prepyloric area, and the scope was inserted into the duodenum and the post-bulbar duodenum; both of which appeared normal. The scope was brought back into the stomach and I was not appreciating any significant inflammatory changes in the distal stomach itself and the antrum looked good and did not explain the epigastric pain; however, with retroflexion of the scope and appearance of the fundus/cardiac region, there was definitely significant inflammatory changes in this area. No ulceration, but petechial hemorrhage and edema and inflammation present consistent with moderate to severe gastritis. The scope was brought back into the distal esophagus and there were actually areas of healing reflux esophagitis probably where superficial ulcerations that have actually started to heal over quite nicely at this time and a little bit of fibrinous exudate in them but not actively inflamed at this time or ulcerated. Scope was brought back revealing an otherwise normal esophagus. LABS: These were taken of the proximal stomach, otherwise no other labs. These were taken and the patient was brought to the recovery room awake, alert and hemodynamically stable. Recommendation at this time is to continue him on proton pump inhibitors as well as Carafate, given that it appears that this is probably some significant improvement of his reflux esophagitis and probable improvement of his gastritis.
[2020-07-26 06:30] LABS: HEMATOCRIT 36.3 % (42.0-52.0); MEAN CORPUSCULAR HGB CONC 33.1 g/dl (32.0-36.5); MEAN CORPUSCULAR VOLUME 84.6 fl (80.0-96.0); PLATELET COUNT, AUTOMATED 239 10^3/uL (150-450); RED BLOOD COUNT 4.29 10^6/uL (4.30-6.10); WHITE BLOOD COUNT 3.5 10^3/uL (4.0-10.0)
[2020-07-26 06:56] LABS: ALBUMIN 3.9 GM/DL (3.2-5.2); ALT/SGPT 29 U/L (12-78); BILIRUBIN,TOTAL 0.7 MG/DL (0.2-1.0); BLOOD UREA NITROGEN 9 MG/DL (7-18); CALCIUM LEVEL 9.2 MG/DL (8.5-10.1); CARBON DIOXIDE LEVEL 30 MEQ/L (21-32); CHLORIDE LEVEL 101 MEQ/L (98-107); GLOMERULAR FILTRATION RATE > 60.0 (>56); GLUCOSE, FASTING 226 MG/DL (70-100); POTASSIUM SERUM 3.3 MEQ/L (3.5-5.1); SODIUM LEVEL 136 MEQ/L (136-145); TOTAL PROTEIN 6.6 GM/DL (6.4-8.2)
[2020-07-26] MEDS: KETOROLAC 30 MG/ML 1ML VIAL IV SCH ×3 (08:00→23:41)
[2020-07-26] MEDS ORDERED: BASA100I SC (08:28)
[2020-07-26] MEDS ORDERED: PANT40TA29 PO (08:28)
[2020-07-26] MEDS ORDERED: REGL5TAB2 PO (08:28)
[2020-07-26] MEDS ORDERED: SUCR1ORA PO (08:28)
[2020-07-26] MEDS ORDERED: PROB250C PO (08:29)
[2020-07-26] MEDS: METOCLOPRAMIDE INJ 10MG/2ML VIAL (J2765 PER 1) IV SCH ×3 (08:57→20:37)
[2020-07-26] MEDS: SUCRALFATE SUSP 1GM/10ML UD PO SCH ×4 (08:57→20:37)
[2020-07-26] MEDS: DULoxetine 30 MG CAP (CYMBALTA) PO SCH ×2 (08:58→20:37)
[2020-07-26] MEDS: ATORVASTATIN 20 MG TAB PO SCH (08:58)
[2020-07-26] MEDS: PANTOPRAZOLE 40MG TAB (PROTONIX) PO SCH (08:58)
[2020-07-26] MEDS: ASPIRIN 81 MG ENTERIC TAB PO SCH (08:58)
[2020-07-26] MEDS: lisinopriL 5 MG TAB PO SCH (08:58)
[2020-07-26] MEDS: LEVEMIR (INSULIN DETEMIR) 1 UNITS/0.01ML SC SCH (08:59)
[2020-07-26] MEDS: HumaLOG INSULIN (NovoLOG) PER UNIT SC SCH ×4 (09:00→20:39)
[2020-07-26] MEDS ORDERED: MECL-86 PO (10:47)
[2020-07-26] MEDS ORDERED: MECLIZINE 12.5 MG TAB PO PRN (17:45)
--- NOTE | 2020-07-26 17:46 | IPNPDOC ---
Date Seen The patient was seen on 07/26/20. Progress Note SUBJECTIVE: Plan was for discharge today ;however, patient became very dizzy, room spinning, lightheadedness and he felt like he was about to "pass out" while showering. Orthostatics were not done at that time but patient has had similar symptoms in past with diagnosis of vertigo and also orthostatic hypotension. When assessed later in the day by myself he "felt off" but not dizzy, lightheaded, no neurological concerns on exam. Vestibular therapist not here until 07/27/20 do decision was made to keep until evaluated. Abdominal pain persists but not worsened, diet advanced. Denies chest pain, incr SOB, fevers, chills. OBJECTIVE: PHYSICAL EXAMINATION: VS: please see below CONSTITUTIONAL: Resting in bed, AAO x 3 EYES: PERRLA, EOM intact HENT, MOUTH: Normocephalic, atraumatic, dry mucous membranes NECK: SUPPLE, no JVD, no lymphadenopathy, no carotid bruit CV: Regular rate and rhythm, S1S2 normal, no murmurs/rubs/gallops RESPIRATORY: Clear to auscultation bilaterally, no rales/rhonchi/wheezes GI: abdominal tenderness localized to epigastric area , BS positive in 4 quadrants, soft, nondistended, no rebound or guarding, no organomegaly : Deferred MUSCULOSKELETAL: Normal ROM. No cyanosis, clubbing, swelling, joint deformity, extremity edema INTEGUMENTARY: Intact, no rashes, no lesions, no erythema NEUROLOGIC: Cranial Nerves II-XII are intact, no focal deficits, no nystagmus on exam PSYCHIATRIC: Mood and affect are normal LABORATORY DATA: Please see below IMAGING: CT abd/pelvis without contrast: There is a small focal density within a small bowel loop on the left, likely an ingested tablet or capsule. No bowel distention or obstruction. No focal fluid collection to suggest abscess or hematoma. No ascites. No mass or adenopathy. No pneumoperitoneum. Otherwise, essentially negative CT of the abdomen and pelvis. CXR: No active disease ASSESSMENT: Patient is a 59 y/o M with PMH of IDDM Type I with hx recurrent admissions (last 03/2020) for DKA, hx of c. diff (03/2020), HTN, HLD, Depression and chronic back pain admitted by medicine service to the ICU for continued treatment of moderate diabetic ketoacidosis requiring insulin drip. PLAN: Nausea/vomiting with abdominal pain poss 2/2 to gastroparesis, gastritis, esophagitis -Appetite slightly improved, pain persists intermittently jak after eating . Tenderness focused mostly in epigastric area -Discussed with Dr. Combs who did endoscopy 07/25/20: D/c patient to follow up with GI mid-August 2020. Discharge on all medications he is currently on. Have GI follow up on pathology sent during scope -CT abd pelvis: No acute issues. -Endoscopy 07/25/20: no delayed emptying but say gastritis in proximal stomach and irritation in distal esophagitis that appeared to be healing. -GI appt in several weeks can f/u path from scope -C/w consistent carb diet, reglan AC, started sucralfate, zofran PRN, incr PPI to BID -H. pylori testing pending. If not back by discharge, have PCP follow up. Has history of C. diff very recently so treating with abx may cause more problems. Dizziness, hx of orthostatic hypotension and vertigo -No neurological deficits on exam -Previously on meclizine but has not taken in some time -Previously cleared by PT this admission but will be evaluated by vestibular rehab therapist in the AM. -Orthostatics PRN with any of the above symptoms. Uncontrolled DM- resolved DKA -Hx of recurrent admissions (last 03/2020) for DKA -BS 150-250 -Last HbA1c > 10 in 03/2020. Last lipid panel 2011 showed TG >500, cholesterol elevated -HbA1c 10.7, lipid panel unremarkable -Consistent carb diet -Levemir at low dose in QAM, ISS, FS AC/HS, consistent carb diet -N/v: reglan TID, zofran PRN -Daily labs -Will need to be discharged with much lower dose levemir in AM while he is not eating large amounts with meals. HTN -BP uncontrolled. -C/wACEi HLD -lipid panel unremarkable -C/w statin Depression -Stable -C/w home duloxetine Chronic back pain -Stable -C/w tylenol PRN Hx of C. diff -Diagnosed in 03/2020 -Treated with PO vancomycin as o/p, followed with Dr. Haas -No diarrhea in > 1 week, last BM was formed -Try to avoid abx -Probiotic with meals Insomnia -C/w zolpidem GI px -PPI incr to BID DVT px -Heparin SC Resolved issues: Acute kidney injury likely 2/2 prerenal cause, dehydration Hypophosphatemia, acute DISPOSITION: Unfortunately will not be able to completely take away discomfort with eating per surgery. Plan is evaluation by vestibular therapist and if does well, discharge home with f/u with PCP and GI in 08/2020. VS, I&O, 24H, Fishbone Vital Signs/I&O Vital Signs Date Time Temp Pulse Resp B/P (MAP) Pulse Ox O2 Delivery O2 Flow Rate FiO2 07/26/20 14:00 98.4 89 17 135/77 (96) 100 Room Air I&O- Last 24 Hours up to 6 AM 07/26/20 05:59 Intake Total 2480 ml Output Total 2750 ml Balance -270 ml Laboratory Data 24H LABS Laboratory Tests 2 07/25/20 19:45: Bedside Glucose (Misc Panel) 136H 07/26/20 05:58: Nucleated Red Blood Cells % (auto) 0.0, Anion Gap 5L, Glomerular Filtration Rate > 60.0, Calcium Level 9.2, Total Bilirubin 0.7, Aspartate Amino Transf (AST/SGOT) 17, Alanine Aminotransferase (ALT/SGPT) 29, Alkaline Phosphatase 64, Total Protein 6.6, Albumin 3.9, Albumin/Globulin Ratio 1.4 07/26/20 11:25: Bedside Glucose (Misc Panel) 276H 07/26/20 17:14: Bedside Glucose (Misc Panel) 171H CBC/BMP Laboratory Tests 07/26/20 05:58 Current Medications Current Medications Medications (Trade) Dose Ordered Sig/Radha Route PRN Reason Start Time Stop Time Status Last Admin Dose Admin Acetaminophen (Tylenol Tab) 650 mg Q6HP PRN PO PAIN / FEVER 07/21/20 18:30 07/25/20 18:06 Aspirin (Ecotrin) 81 mg DAILY PO 07/22/20 09:00 07/26/20 08:58 Atorvastatin Calcium (Lipitor) 20 mg DAILY PO 07/22/20 09:00 07/24/20 16:24 DC 07/24/20 09:19 Atorvastatin Calcium (Lipitor) 20 mg DAILY PO 07/25/20 09:00 07/26/20 08:58 Atorvastatin Calcium (Lipitor) 40 mg DAILY PO 07/25/20 09:00 07/24/20 16:26 DC Ceftriaxone Sodium 1 gm/ Dextrose 50 ml @ 100 mls/hr Q24H IV 07/21/20 20:00 07/21/20 18:21 DC Dextrose (Dextrose 50%) 25 ml ASDIRECTED PRN IV SEE LABEL COMMENTS 07/22/20 11:45 Dextrose/Sodium Chloride 1,000 ml @ 75 mls/hr [id number] IV 07/22/20 00:30 07/24/20 16:28 DC 07/24/20 09:23 Duloxetine HCl (Cymbalta) 30 mg QHS PO 07/24/20 21:00 07/25/20 20:17 Duloxetine HCl (Cymbalta) 60 mg DAILY PO 07/22/20 09:00 07/26/20 08:58 Fenofibrate (Tricor) 145 mg DAILY PO 07/25/20 09:00 07/24/20 16:26 DC Glucagon (Glucagon) 1 mg ASDIRECTED PRN SC SEE LABEL COMMENTS 07/22/20 11:45 Glucose (Glucose) 16 GM ASDIRECTED PRN PO SEE LABEL COMMENTS 07/22/20 11:45 Heparin Sodium (Porcine) (Heparin) 5,000 units Q8H SC 07/21/20 22:00 07/26/20 14:56 Home Med (Med Rec Complete!) ASDIRECTED XX 07/21/20 18:00 07/21/20 17:50 DC Influenza Virus Vaccine (Flublok Quad(Egg-Free)18y&Older Influenza) 0.5 ml ASDIRECTED IM 07/22/20 07:30 Insulin Detemir (Levemir Insulin) 18 units QAM SC 07/25/20 09:00 07/26/20 08:59 Insulin Detemir (Levemir Insulin) 25 units QAM SC 07/22/20 09:00 07/24/20 09:54 DC 07/24/20 09:21 Insulin Detemir (Levemir Insulin) 30 units QAM SC 07/25/20 09:00 07/25/20 08:25 DC Insulin Human Lispro (HumaLOG INSULIN) SEE PROTOCOL TABLE AC SC 07/22/20 12:00 07/26/20 17:33 Insulin Human Lispro (HumaLOG INSULIN) SEE PROTOCOL TABLE QHS SC 07/22/20 21:00 Insulin Human Regular 100 unit/ IV Miscellaneous Supplies 100 ml @ 0 mls/hr Q0M IV 07/21/20 17:50 07/22/20 11:53 DC 07/22/20 00:12 Insulin Human Regular 100 unit/ IV Miscellaneous Supplies 100 ml @ 7 mls/hr [id number] IV 07/21/20 17:01 07/21/20 18:10 DC 07/21/20 17:25 Ketorolac Tromethamine (ToRADol) 15 mg Q8H IV 07/22/20 16:00 07/27/20 15:59 07/25/20 23:59 Lactated Ringer's 1,000 ml @ 100 mls/hr Q10H IV 07/25/20 13:00 07/25/20 14:00 DC Lisinopril (Prinivil) 5 mg DAILY PO 07/24/20 09:00 07/26/20 08:58 Metoclopramide HCl (REGLAN INJection) 10 mg Q6HP PRN IV NAUSEA OR VOMITING 07/25/20 13:00 07/25/20 14:00 DC Metoclopramide HCl (REGLAN INJection) 10 mg TID IV 07/22/20 16:00 07/26/20 16:47 Metoclopramide HCl (Reglan) 5 mg AC PO 07/22/20 17:30 07/22/20 14:53 DC Metoclopramide HCl (Reglan) 10 mg AC PO 07/22/20 12:00 07/22/20 12:02 DC 07/22/20 11:59 Morphine Sulfate (Morphine Sulfate Inj) 1 mg Q6H PRN IV SEVERE PAIN (PS 8-10) 07/22/20 15:00 Non-Formulary Medication (Insulin Iv Rate Change Documentation ml/ Hr) ASDIRECTED XX 07/21/20 17:15 07/21/20 18:10 DC Non-Formulary Medication (Insulin Iv Rate Change Documentation ml/ Hr) ASDIRECTED XX 07/21/20 18:00 07/22/20 11:53 DC 07/22/20 03:54 Ondansetron HCl (ZOFRAN INJection) 4 mg Q4HP PRN IV NAUSEA OR VOMITING 07/25/20 13:00 07/25/20 14:00 DC Ondansetron HCl (ZOFRAN INJection) 4 mg Q6HP PRN IV NAUSEA OR VOMITING 07/21/20 18:30 07/22/20 09:06 Pantoprazole Sodium (Protonix) 40 mg DAILY IV 07/22/20 09:00 07/22/20 08:51 DC Pantoprazole Sodium (Protonix) 40 mg QAM PO 07/22/20 09:00 07/26/20 08:58 Sodium Chloride 1,000 ml @ 75 mls/hr [id number] IV 07/24/20 17:00 07/25/20 06:59 DC 07/24/20 17:27 Sodium Chloride 1,000 ml @ 125 mls/hr Q8H IV 07/21/20 17:50 07/22/20 00:26 DC 07/21/20 18:18 Sodium Chloride 1,000 ml @ 150 mls/hr Q6H40M IV 07/21/20 17:44 07/22/20 00:05 DC 07/21/20 18:09 Sucralfate (Carafate Suspension) 1 gm ACHS PO 07/23/20 07:30 07/26/20 12:10 Zolpidem Tartrate (Ambien) 10 mg QHS PO 07/21/20 21:00 07/24/20 20:53 Allergies Coded Allergies: pregabalin (Verified Adverse Reaction, Unknown, LEG SWELLING, 07/21/20) Sandra Peace MD Jul 26, 2020 17:46
[2020-07-26] MEDS: NS 1,000 ML IV SCH (18:23)
[2020-07-26] MEDS: zolPIDEM TARTRATE 5 MG TAB PO SCH (20:37)
[2020-07-27 02:00] VITALS: BP 159/82
[2020-07-27] MEDS: NS 1,000 ML IV SCH (03:17)
[2020-07-27] MEDS: HEPARIN SOD (PORCINE) 5000UNITS/ML 1ML VIAL/SYRINGE SC SCH ×3 (05:48→21:27)
[2020-07-27 06:00] VITALS: BP 168/90
[2020-07-27 06:29] LABS: HEMATOCRIT 32.7 % (42.0-52.0); MEAN CORPUSCULAR HEMOGLOBIN 28.6 pg (27.0-33.0); MEAN CORPUSCULAR HGB CONC 33.6 g/dl (32.0-36.5); MEAN CORPUSCULAR VOLUME 84.9 fl (80.0-96.0); PLATELET COUNT, AUTOMATED 232 10^3/uL (150-450); RED BLOOD COUNT 3.85 10^6/uL (4.30-6.10); WHITE BLOOD COUNT 3.7 10^3/uL (4.0-10.0)
[2020-07-27 07:03] LABS: ALBUMIN 3.1 GM/DL (3.2-5.2); ALT/SGPT 35 U/L (12-78); BILIRUBIN,TOTAL 0.3 MG/DL (0.2-1.0); BLOOD UREA NITROGEN 11 MG/DL (7-18); CALCIUM LEVEL 8.2 MG/DL (8.5-10.1); CARBON DIOXIDE LEVEL 27 MEQ/L (21-32); CHLORIDE LEVEL 106 MEQ/L (98-107); CREATININE FOR GFR 0.68 MG/DL (0.70-1.30); GLOMERULAR FILTRATION RATE > 60.0 (>56); GLUCOSE, FASTING 304 MG/DL (70-100); POTASSIUM SERUM 3.5 MEQ/L (3.5-5.1); SODIUM LEVEL 140 MEQ/L (136-145); TOTAL PROTEIN 5.4 GM/DL (6.4-8.2)
[2020-07-27] MEDS: SUCRALFATE SUSP 1GM/10ML UD PO SCH ×4 (08:40→21:25)
[2020-07-27] MEDS: METOCLOPRAMIDE INJ 10MG/2ML VIAL (J2765 PER 1) IV SCH ×3 (08:40→21:25)
[2020-07-27] MEDS: lisinopriL 5 MG TAB PO SCH (08:40)
[2020-07-27] MEDS: PANTOPRAZOLE 40MG TAB (PROTONIX) PO SCH (08:41)
[2020-07-27] MEDS: ASPIRIN 81 MG ENTERIC TAB PO SCH (08:41)
[2020-07-27] MEDS: LEVEMIR (INSULIN DETEMIR) 1 UNITS/0.01ML SC SCH (08:41)
[2020-07-27] MEDS: ATORVASTATIN 20 MG TAB PO SCH (08:41)
[2020-07-27] MEDS: DULoxetine 30 MG CAP (CYMBALTA) PO SCH ×2 (08:41→21:26)
[2020-07-27] MEDS: HumaLOG INSULIN (NovoLOG) PER UNIT SC SCH ×4 (08:42→21:00)
[2020-07-27] MEDS ORDERED: cloNIDine 0.1 MG TAB PO ONE (09:00)
[2020-07-27] MEDS: MECLIZINE 25 MG TABLET PO SCH ×4 (10:52→21:25)
[2020-07-27 12:28] VITALS: BP_SYST 126; BP_SYST 163; BP_SYST 77; BP_DIAS 51; BP_DIAS 77; BP_DIAS 90
--- NOTE | 2020-07-27 13:24 | IPNPDOC ---
Date Seen The patient was seen on 07/27/20. Progress Note SUBJECTIVE: Complains of dizziness when he attempted to sit up and stand, unable to work with physical therapy for home safety evaluation. Patient was found to be orthostatic with blood pressure dropping to 77 systolic Upon standing. He denies any chest pain, palpitations, lightheadedness, shortness of breath. Despite systolic pressure of 180. He denies any headache or changes in vision, chest pressure or tightness. Discharge has been postponed until orthostasis improves and cleared by physical therapy OBJECTIVE: PHYSICAL EXAMINATION: VS: please see below General: Resting in bed, AAO x 3, no icterus, no distress, speaks in full set . HEENT Normocephalic, atraumatic, moist mucous membranes no JVD, no lymphadenopathy, no carotid bruit , Heart: Regular rate and rhythm, S1S2 normal, . Lungs: Clear to auscultation bilaterally, . Abdomen: BS positive in 4 quadrants, soft, nondistended, no rebound or guarding, no organomegaly . Extremities: No lower extremity edema bilaterally LABORATORY DATA: Please see below IMAGING: CT abd/pelvis without contrast: There is a small focal density within a small bowel loop on the left, likely an ingested tablet or capsule. No bowel distention or obstruction. No focal fluid collection to suggest abscess or hematoma. No ascites. No mass or adenopathy. No pneumoperitoneum. Otherwise, essentially negative CT of the abdomen and pelvis. CXR: No active disease ASSESSMENT: 59 y/o M with PMH of IDDM Type I with hx recurrent admissions (last 03/2020) for DKA, hx of c. diff (03/2020), HTN, HLD, Depression and chronic back pain admitted for DKA. Problem list: Orthostatic hypotension Gastroparesis Gastritis Esophagitis DKA, resolved , Hypertension , Hyperlipidemia , Depression , Chronic back pain Type 1 diabetes . Acute kidney injury, resolved PLAN: . Continue with IV fluid boluses until patient's orthostasis has resolved. Continue all other medications Meclizine for vertigo. PT home safety evaluation. Discharge later today if cleared by therapy and orthostasis has resolved. . Continue on PPI. Outpatient follow-up with general surgery. VS, I&O, 24H, Fishbone Vital Signs/I&O Vital Signs Date Time Temp Pulse Resp B/P (MAP) Pulse Ox O2 Delivery O2 Flow Rate FiO2 12/22/20 12:28 69 163/90 (114) 82 126/77 (93) 91 77/51 (60) 07/27/20 06:00 98.7 18 98 Room Air I&O- Last 24 Hours up to 6 AM 07/27/20 06:00 Intake Total 2990 ml Output Total 1200 ml Balance 1790 ml Laboratory Data 24H LABS Laboratory Tests 2 07/26/20 17:14: Bedside Glucose (Misc Panel) 171H 07/26/20 20:02: Bedside Glucose (Misc Panel) 266H 07/27/20 06:04: Nucleated Red Blood Cells % (auto) 0.0, Anion Gap 7L, Glomerular Filtration Rate > 60.0, Calcium Level 8.2L, Total Bilirubin 0.3#, Aspartate Amino Transf (AST/SGOT) 25, Alanine Aminotransferase (ALT/SGPT) 35, Alkaline Phosphatase 72, Total Protein 5.4L, Albumin 3.1#L, Albumin/Globulin Ratio 1.3 07/27/20 11:43: Bedside Glucose (Misc Panel) 244H CBC/BMP Laboratory Tests 07/27/20 06:04 DEVONTE LEE MD Jul 27, 2020 13:24
[2020-07-27] MEDS ORDERED: NS 1,000 ML IV ONE (13:30)
[2020-07-27 14:00] VITALS: BP 103/64
[2020-07-27 16:45] VITALS: BP_SYST 114; BP_SYST 176; BP_SYST 178; BP_DIAS 66; BP_DIAS 98
[2020-07-27] MEDS: zolPIDEM TARTRATE 5 MG TAB PO SCH (21:25)
[2020-07-27] MEDS: ACETAMINOPHEN TAB 650MG DOSE (2X325MG) PO PRN (21:28)
[2020-07-27 21:30] VITALS: BP_SYST 164; BP_SYST 98; BP_DIAS 66; BP_DIAS 86; BP_DIAS 88
[2020-07-28] VITALS (9 sets, daily range): BP systolic 78–204; BP diastolic 40–98
[2020-07-28] MEDS: HEPARIN SOD (PORCINE) 5000UNITS/ML 1ML VIAL/SYRINGE SC SCH ×3 (05:19→22:17)
[2020-07-28] MEDS: ACETAMINOPHEN TAB 650MG DOSE (2X325MG) PO PRN ×2 (05:21→15:30)
[2020-07-28] MEDS: SUCRALFATE SUSP 1GM/10ML UD PO SCH ×4 (08:46→22:16)
[2020-07-28] MEDS: MECLIZINE 25 MG TABLET PO SCH (08:48)
[2020-07-28] MEDS: PANTOPRAZOLE 40MG TAB (PROTONIX) PO SCH (08:48)
[2020-07-28] MEDS: lisinopriL 5 MG TAB PO SCH (08:48)
[2020-07-28] MEDS: DULoxetine 30 MG CAP (CYMBALTA) PO SCH ×2 (08:48→22:16)
[2020-07-28] MEDS: ASPIRIN 81 MG ENTERIC TAB PO SCH (08:48)
[2020-07-28] MEDS: ATORVASTATIN 20 MG TAB PO SCH (08:48)
[2020-07-28] MEDS: METOCLOPRAMIDE INJ 10MG/2ML VIAL (J2765 PER 1) IV SCH ×3 (08:49→22:16)
[2020-07-28] MEDS: LEVEMIR (INSULIN DETEMIR) 1 UNITS/0.01ML SC SCH ×2 (08:49→22:17)
[2020-07-28] MEDS: HumaLOG INSULIN (NovoLOG) PER UNIT SC SCH ×4 (08:50→21:00)
--- NOTE | 2020-07-28 10:54 | IPNPDOC ---
Date Seen The patient was seen on 07/28/20. Progress Note SUBJECTIVE: still orthostatic despite ivfluids yesterday. c/o dizziness no falls. no cp, diaphoresis,cp, tightness. OBJECTIVE: PHYSICAL EXAMINATION: VS: please see below General:no distress aaox 3 . HEENT Normocephalic, atraumatic, moist mucous membranes no JVD, no lymphad enopathy, no carotid bruit , Heart: Regular rate and rhythm, S1S2 normal, . Lungs: Clear to auscultation bilaterally, . Abdomen: BS positive in 4 quadrants, soft, nondistended, no rebound or guarding, no organomegaly . Extremities: No lower extremity edema bilaterally LABORATORY DATA: Please see below IMAGING: CT abd/pelvis without contrast: There is a small focal density within a small bowel loop on the left, likely an ingested tablet or capsule. No bowel distention or obstruction. No focal fluid collection to suggest abscess or hematoma. No ascites. No mass or adenopathy. No pneumoperitoneum. Otherwise, essentially negative CT of the abdomen and pelvis. CXR: No active disease ASSESSMENT: 59 y/o M with PMH of IDDM Type I with hx recurrent admissions (last 03/2020) for DKA, hx of c. diff (03/2020), HTN, HLD, Depression and chronic back pain admitted for DKA. Problem list: Orthostatic hypotension autonomic dysfunction Gastroparesis Gastritis Esophagitis DKA, resolved , Hypertension , Hyperlipidemia , Depression , Chronic back pain Type 1 diabetes . Acute kidney injury, resolved PLAN: symptomatic w his orthostatic hypotension, and unable to ambulate without dizziness. not cleared for discharge due to blood pressure 78mmHg with standing despite ivfluids. no c/o sob. pt will be tried on midodrine tid. if stable and cleared by PT may dc home. VS, I&O, 24H, Fishbone Vital Signs/I&O Vital Signs Date Time Temp Pulse Resp B/P (MAP) Pulse Ox O2 Delivery O2 Flow Rate FiO2 07/28/20 10:33 84 142/80 (100) 84 102/72 (82) 80 78/40 (53) 07/28/20 06:00 98.3 17 100 Room Air I&O- Last 24 Hours up to 6 AM 07/28/20 06:00 Intake Total 5850 ml Output Total 6675 ml Balance -825 ml Laboratory Data 24H LABS Laboratory Tests 2 07/27/20 11:43: Bedside Glucose (Misc Panel) 244H 07/27/20 17:07: Bedside Glucose (Misc Panel) 181H 07/27/20 19:54: Bedside Glucose (Misc Panel) 159H 07/28/20 06:53: Bedside Glucose (Misc Panel) 331H DEVONTE LEE MD Jul 28, 2020 10:54
[2020-07-28] MEDS: MIDODRINE 5 MG TAB PO SCH ×2 (12:14→17:01)
[2020-07-28] MEDS ORDERED: MECLIZINE 25 MG TABLET PO PRN (13:30)
[2020-07-28] MEDS: zolPIDEM TARTRATE 5 MG TAB PO SCH (22:16)
[2020-07-29 03:18] VITALS: BP_SYST 126; BP_SYST 74; BP_SYST 90; BP_DIAS 54; BP_DIAS 68; BP_DIAS 80
[2020-07-29] MEDS: HEPARIN SOD (PORCINE) 5000UNITS/ML 1ML VIAL/SYRINGE SC SCH ×2 (06:18→14:00)
[2020-07-29 06:27] VITALS: BP_SYST 118; BP_SYST 140; BP_SYST 80; BP_DIAS 50; BP_DIAS 80; BP_DIAS 90
[2020-07-29 06:48] LABS: BLOOD UREA NITROGEN 12 MG/DL (7-18); CALCIUM LEVEL 9.2 MG/DL (8.5-10.1); CARBON DIOXIDE LEVEL 32 MEQ/L (21-32); CHLORIDE LEVEL 105 MEQ/L (98-107); CREATININE FOR GFR 0.69 MG/DL (0.70-1.30); GLOMERULAR FILTRATION RATE > 60.0 (>56); GLUCOSE, FASTING 72 MG/DL (70-100); POTASSIUM SERUM 3.9 MEQ/L (3.5-5.1); SODIUM LEVEL 141 MEQ/L (136-145)
[2020-07-29] MEDS: HumaLOG INSULIN (NovoLOG) PER UNIT SC SCH ×2 (07:30→12:07)
[2020-07-29] MEDS: ATORVASTATIN 20 MG TAB PO SCH (08:09)
[2020-07-29] MEDS: SUCRALFATE SUSP 1GM/10ML UD PO SCH ×2 (08:09→12:06)
[2020-07-29] MEDS: ASPIRIN 81 MG ENTERIC TAB PO SCH (08:09)
[2020-07-29] MEDS: LEVEMIR (INSULIN DETEMIR) 1 UNITS/0.01ML SC SCH (08:09)
[2020-07-29] MEDS: METOCLOPRAMIDE INJ 10MG/2ML VIAL (J2765 PER 1) IV SCH (08:09)
[2020-07-29] MEDS: MIDODRINE 5 MG TAB PO SCH ×3 (08:09→16:01)
[2020-07-29] MEDS: PANTOPRAZOLE 40MG TAB (PROTONIX) PO SCH (08:09)
[2020-07-29] MEDS: DULoxetine 30 MG CAP (CYMBALTA) PO SCH (08:09)
[2020-07-29] MEDS ORDERED: LEVEMIR (INSULIN DETEMIR) 1 UNITS/0.01ML SC SCH ×2 (09:00→21:00)
[2020-07-29] MEDS ORDERED: MIDO5TA PO (10:43)
[2020-07-29] MEDS ORDERED: SELF1KIT MC (10:45)
[2020-07-29] MEDS ORDERED: BASA100I SC (10:51)
--- NOTE | 2020-07-29 10:54 | IPNPDOC ---
Date Seen The patient was seen on 07/29/20. Progress Note SUBJECTIVE: Denies dizziness, lightheadedness or syncope. No falls. No chest pain, pressure, tightness, shortness of breath, PND or orthopnea OBJECTIVE: PHYSICAL EXAMINATION: VS: please see below General: No conversational dyspnea. Appears his stated age, no distress . HEENT, moist mucous membranes no JVD, no lymphadenopathy, no carotid bruit , Heart: Regular rate and rhythm, S1S2 , no carotid bruit . Lungs: Clear to auscultation bilaterally, no adventitious breath sounds . Abdomen: BS positive in 4 quadrants, soft, nondistended, , Nontender no rebound or guarding, no organomegaly . Extremities: No lower extremity edema bilaterally LABORATORY DATA: Please see below IMAGING: CT abd/pelvis without contrast: There is a small focal density within a small bowel loop on the left, likely an ingested tablet or capsule. No bowel distention or obstruction. No focal fluid collection to suggest abscess or hematoma. No ascites. No mass or adenopathy. No pneumoperitoneum. Otherwise, essentially negative CT of the abdomen and pelvis. CXR: No active disease ASSESSMENT: 59 y/o M with PMH of IDDM Type I with hx recurrent admissions (last 03/2020) for DKA, hx of c. diff (03/2020), HTN, HLD, Depression and chronic back pain admitted for DKA. Problem list: Orthostatic hypotension autonomic dysfunction Gastroparesis Gastritis Esophagitis DKA, resolved , Hypertension , Hyperlipidemia , Depression , Chronic back pain Type 1 diabetes, uncontrolled . Acute kidney injury, resolved PLAN: -Increased midodrine to 10 mg 3 times a day -discontinued Patient's lisinopril. -Await patient's home safety evaluation -Increase Levemir insulin to 18 units subcutaneous twice a day for better glycemic control. VS, I&O, 24H, Fishbone Vital Signs/I&O Vital Signs Date Time Temp Pulse Resp B/P (MAP) Pulse Ox O2 Delivery O2 Flow Rate FiO2 07/29/20 06:27 88 140/90 (107) 94 118/80 (93) 80/50 (60) 07/29/20 06:00 98.2 18 98 Room Air I&O- Last 24 Hours up to 6 AM 07/29/20 06:00 Intake Total 1500 ml Output Total 5275 ml Balance -3775 ml Laboratory Data 24H LABS Laboratory Tests 2 07/28/20 11:36: Bedside Glucose (Misc Panel) 329H 07/28/20 16:57: Bedside Glucose (Misc Panel) 234H 07/28/20 20:53: Bedside Glucose (Misc Panel) 234H 07/29/20 05:33: Anion Gap 4L, Glomerular Filtration Rate > 60.0, Calcium Level 9.2 CBC/BMP Laboratory Tests 07/29/20 05:33 DEVONTE LEE MD Jul 29, 2020 10:47
[2020-07-29 16:01] VITALS: BP 148/90
[2020-08-04] MEDS ORDERED: LISI-542 PO (08:10)
== END 2020-07-29 16:03 | disposition home or self-care (01) | DRG 420 ==
LOC: M ED 14:51 → M ED INP 17:50 → ENRESERV 23:14 → M PCU 07-22 00:03 → M MSPAV 07-22 14:40
PROVIDERS: ADMIT Internal Medicine; ATTEND General Practice
PROC: 0DJ08ZZ Inspection of Upper Intestinal Tract, Via Natural or Artificial Opening Endoscopic (ICD-10-PCS; principal; 2020-07-22)
DX: E10.10 Type 1 diabetes mellitus with ketoacidosis without coma (principal); N17.9 Acute kidney failure, unspecified; K31.84 Gastroparesis; E83.39 Other disorders of phosphorus metabolism; E83.42 Hypomagnesemia; E10.43 Type 1 diabetes mellitus with diabetic autonomic (poly)neuropathy; E78.5 Hyperlipidemia, unspecified; I10 Essential (primary) hypertension; K29.70 Gastritis, unspecified, without bleeding; K21.00 Gastro-esophageal reflux disease with esophagitis, without bleeding; I95.1 Orthostatic hypotension; F32.9 Major depressive disorder, single episode, unspecified; M54.5 Low back pain; Z79.899 Other long term (current) drug therapy; Z79.82 Long term (current) use of aspirin; Z88.8 Allergy status to other drugs, medicaments and biological substances; G47.00 Insomnia, unspecified

== ENCOUNTER → 2020-08-08 | Outpatient (CLI) | payer OTHER ==
[~2020-08-08] MED LIST changes: +MIDO5TA PO; +ONDA-83 PO; +PANT40TA29 PO; +PROB250C PO; +SELF1KIT MC; +SUCR1ORA PO
== END ==
LOC: M LABSMTC 09:39
PROVIDERS: ATTEND Anesthesiology
DX: Z01.812 Encounter for preprocedural laboratory examination (principal); Z20.828 Contact with and (suspected) exposure to other viral communicable diseases

== ENCOUNTER 2020-08-13 12:34 | Day surgery (SDC) | payer OTHER ==
[~2020-08-13] VITALS: Ht 190.5 cm; Wt 80.6 kg
[~2020-08-13 12:34] MED LIST changes: +NS 1,000 ML IV ONE
[2020-08-13] MEDS ORDERED: propofoL 500 MG/50 ML VIAL As Ordered ONE (14:36)
[2020-08-13] MEDS ORDERED: fentaNYL 100 MCG/2 ML INJECTION (J3010) As Ordered ONE (14:36)
[2020-08-13] MEDS ORDERED: LIDOCAINE 2% 100MG/5ML SDV (FOR ANES.) As Ordered ONE (14:38)
[2020-08-13] MEDS ORDERED: D5W/0.45% SODIUM CHLORIDE 1,000 ML IV SCH (15:30)
--- NOTE | 2020-08-13 15:49 | ROOR ---
Patient Name: Aubrey Castaneda Procedure Date: 08/13/2020 3:15 PM Date of : 1960 Age: 59 Room: [facility] Gender: Male Note Status: Finalized Procedure: Colonoscopy Indications: Generalized abdominal pain, Change in bowel habits Providers: Lauro CHOUDHARY MD Referring MD: MERVIN COATS Requesting Provider: Medicines: Monitored Anesthesia Care Complications: No immediate complications. Procedure: Pre-Anesthesia Assessment: - The heart rate, respiratory rate, oxygen saturations, blood pressure, adequacy of pulmonary ventilation, and response to care were monitored throughout the procedure. The colonoscopy was performed without difficulty. The patient tolerated the procedure well. The quality of the bowel preparation was fair. The Colonoscope was introduced through the anus and advanced to the cecum, identified by appendiceal orifice and ileocecal valve. Findings: The perianal and digital rectal examinations were normal. Four sessile polyps were found in the splenic flexure and ascending colon. The polyps were 5 to 6 mm in size. These polyps were removed with a cold snare. Resection and retrieval were complete. Mild sigmoid diverticulosis and small internal hemorrhoids. The colon is somewhat redundant and spastic, but was otherwise without abnormality on direct and retroflexion views. Impression: - Preparation of the colon was fair. - Four 5 to 6 mm polyps at the splenic flexure and in the ascending colon, removed with a cold snare. Resected and retrieved. - Mild sigmoid diverticulosis and small internal hemorrhoids. - The examination was otherwise normal on direct and retroflexion views. Recommendation: - Repeat colonoscopy in 3 years for surveillance. - Continue present medications. Procedure Code(s): --- Professional --- 14969, Colonoscopy, flexible; with removal of tumor(s), polyp(s), or other lesion(s) by snare technique Diagnosis Code(s): --- Professional --- R19.4, Change in bowel habit R10.84, Generalized abdominal pain K63.5, Polyp of colon CPT copyright 2019 [employer]. All rights reserved. The codes documented in this report are preliminary and upon multiple cut off saw operator review may be revised to meet current compliance requirements. Lauro Choudhary MD Lauro CHOUDHARY MD 08/13/2020 3:49:10 PM Electronically signed by Lauro CHOUDHARY MD Number of Addenda: 0 Note Initiated On: 08/13/2020 3:15 PM Estimated Blood Loss: Estimated blood loss: none.
[2020-08-13 16:10] VITALS: BP 141/76
== END 2020-08-13 16:11 | disposition home or self-care (01) ==
LOC: M OPP 12:34
PROVIDERS: ATTEND Internal Medicine Gastroenterology
DX: R10.84 Generalized abdominal pain (principal); R19.4 Change in bowel habit; D12.2 Benign neoplasm of ascending colon; D12.3 Benign neoplasm of transverse colon; K57.30 Diverticulosis of large intestine without perforation or abscess without bleeding; K64.8 Other hemorrhoids; I10 Essential (primary) hypertension; E78.5 Hyperlipidemia, unspecified; E10.9 Type 1 diabetes mellitus without complications; R12 Heartburn; F41.9 Anxiety disorder, unspecified; F32.9 Major depressive disorder, single episode, unspecified; G62.9 Polyneuropathy, unspecified; F17.210 Nicotine dependence, cigarettes, uncomplicated; Z88.8 Allergy status to other drugs, medicaments and biological substances; Z79.4 Long term (current) use of insulin; Z79.82 Long term (current) use of aspirin; Z79.899 Other long term (current) drug therapy; Z80.8 Family history of malignant neoplasm of other organs or systems

== ENCOUNTER → 2020-08-25 | Outpatient (CLI) | payer SELFPAY ==
[~2020-08-25] MED LIST changes: -LISI-542 PO; +LISI-898 PO; -NS 1,000 ML IV ONE
== END ==
LOC: M LABSMTC 13:00
PROVIDERS: ATTEND Pediatrics
DX: Z20.822 Contact with and (suspected) exposure to COVID-19 (principal)

== ENCOUNTER 2020-11-09 20:43 | Inpatient (IN) | payer OTHER ==
[~2020-11-09] VITALS: Ht 190.5 cm; Wt 77.7 kg
[2020-11-09] MEDS ORDERED: zolPIDEM TARTRATE 5 MG TAB PO ONE (21:00)
[2020-11-09] MEDS ORDERED: NS 1,000 ML IV ONE (21:10)
[2020-11-09 21:36] LABS: VENOUS BASE EXCESS -24.6 (-2.0-2.0); VENOUS HCO3 3.8 MEQ/L (23.0-27.0); VENOUS O2 SATURATION 98.1 % (60.0-80.0); VENOUS PARTIAL PRESSURE CO2 13.8 mmHg (38.0-50.0); VENOUS PARTIAL PRESSURE O2 138.1 mmHg (30.0-50.0); VENOUS PH 7.056 UNITS (7.330-7.430); VENOUS STANDARD HCO3 7.5 MEQ/L; VENOUS TOTAL CO2 4.2 MEQ/L (24.0-28.0)
[2020-11-09 21:41] LABS: BASO # 0.1 10^3/uL (0.0-0.2); BASO % 0.2 % (0.0-1.0); HEMATOCRIT 41.7 % (42.0-52.0); HEMOGLOBIN 13.2 g/dl (13.5-17.5); LYMPH # 1.4 10^3/uL (1.5-5.0); LYMPH % 5.8 % (24.0-44.0); MEAN CORPUSCULAR HEMOGLOBIN 29.2 pg (27.0-33.0); MEAN CORPUSCULAR HGB CONC 31.7 g/dl (32.0-36.5); MEAN CORPUSCULAR VOLUME 92.3 fl (80.0-96.0); MONO % 8.5 % (2.0-8.0); NEUTROPHILS # 20.3 10^3/uL (1.5-8.5); NEUTROPHILS % 84.5 % (36.0-66.0); PLATELET COUNT, AUTOMATED 303 10^3/uL (150-450); RED BLOOD COUNT 4.52 10^6/uL (4.30-6.10)
[2020-11-09 21:59] LABS: HEMOGLOBIN A1c 11.3 %
[2020-11-09] MEDS ORDERED: FLOR250C PO (22:04)
[2020-11-09] MEDS ORDERED: PANT40TA29 PO (22:04)
[2020-11-09] MEDS ORDERED: MECL1TAB31 PO (22:04)
[2020-11-09] MEDS ORDERED: BASA100I SC (22:04)
[2020-11-09] MEDS ORDERED: MIDO10TA PO (22:04)
[2020-11-09 22:10] LABS: OSMOLALITY SERUM 322 MOSM/KG (275-295)
[2020-11-09 22:14] LABS: ALBUMIN 4.3 GM/DL (3.2-5.2); ALT/SGPT 25 U/L (12-78); BILIRUBIN,DIRECT 0.3 MG/DL (0.0-0.2); BILIRUBIN,TOTAL 0.9 MG/DL (0.2-1.0); BLOOD UREA NITROGEN 40 MG/DL (7-18); CALCIUM LEVEL 10.2 MG/DL (8.5-10.1); CARBON DIOXIDE LEVEL 5 MEQ/L (21-32); CHLORIDE LEVEL 89 MEQ/L (98-107); CK-MB VALUE MASS 16.5 NG/ML (<3.6); CPK CREATINE PHOSPHOKINASE 806 U/L (39-308); CREATININE FOR GFR 1.89 MG/DL (0.70-1.30); ETHYL ALCOHOL (ETHANOL) < 0.003 % (0.000-0.010); GLOMERULAR FILTRATION RATE 39.2 (>56); GLUCOSE, FASTING 584 MG/DL (70-100); LIPASE 291 U/L (73-393); MB/CK RELATIVE INDEX 2.05 (< OR =4); POTASSIUM SERUM 5.5 MEQ/L (3.5-5.1); SODIUM LEVEL 125 MEQ/L (136-145); TOTAL PROTEIN 7.3 GM/DL (6.4-8.2); TROPONIN I 0.08 NG/ML (< 0.10)
--- NOTE | 2020-11-09 22:16 | REPVR ---
PROCEDURE INFORMATION: Exam: XR Chest Exam date and time: 11/09/20 (9:28pm) Age: 59 years old Clinical indication: DKA TECHNIQUE: Imaging protocol: Portable CXR Views: 1 view COMPARISON: Portable CXR of 07/21/20 FINDINGS: Lungs: Hazy opacity laterally in the right mid lung zone, at the hilar level. The lung atkinson are otherwise clear. No masses. Pleural spaces: Unremarkable. No pleural effusions. No pneumothorax. Heart/Mediastinum: Unremarkable. No cardiomegaly. Bones/joints: Unremarkable. IMPRESSION: Focal hazy opacity laterally in the right mid lung zone. Possible focal pneumonia, eg. The lung atkinson are otherwise clear. No pleural effusions. The lung atkinson were clear in 2019. Electronically signed by: Enma Bello On 11/09/2020 22:16:52 PM
[2020-11-09] MEDS ORDERED: INSULIN REGULAR IN 0.9 % NACL 100 UNIT in IV 1 EA IV SCH ×4 (22:17→22:38)
[2020-11-09] MEDS ORDERED: INSULIN IV RATE CHANGE DOCUMENTATION ML/HR XX SCH ×2 (22:20→22:40)
[2020-11-09] MEDS ORDERED: HumuLIN R (REGULAR) INSULIN (NovoLIN R) **100U/ML** PER UNIT IV ONE ×2 (22:20→22:40)
[2020-11-09 22:24] LABS: RSV AMPLIFICATION NEGATIVE (NEGATIVE)
[2020-11-09 22:28] LABS: AMPHETAMINES LEVEL URINE NEGATIVE (NEGATIVE); BARBITURATES URINE NEGATIVE (NEGATIVE); BENZODIAZEPINES URINE NEGATIVE (NEGATIVE); CANNABINOIDS URINE NEGATIVE (NEGATIVE); COCAINE METABOLITE URINE NEGATIVE (NEGATIVE); METHADONE URINE NEGATIVE (NEGATIVE); OPIATES URINE NEGATIVE (NEGATIVE); PHENCYCLIDINE URINE NEGATIVE (NEGATIVE)
[2020-11-09 22:37] LABS: ACETONE/KETONE > 46.00 MG/DL (<2.81)
[2020-11-09] MEDS ORDERED: cefTRIAXone SOD 1 GM in D5W MINI-BAG PLUS 50 ML IV ONE (22:55)
[2020-11-09] MEDS ORDERED: NS 1,000 ML IV SCH (23:43)
[2020-11-10] VITALS (10 sets, daily range): BP systolic 96–151; BP diastolic 53–78
[2020-11-10] MEDS ORDERED: cefTRIAXone SOD 1GM VIAL (J0696 PER 250MG) As Ordered ONE (00:03)
[2020-11-10] MEDS ORDERED: ACETAMINOPHEN TAB 650MG DOSE (2X325MG) PO PRN (00:05)
[2020-11-10] MEDS ORDERED: INSULIN REGULAR IN 0.9 % NACL 100 UNIT in IV 1 EA IV SCH ×2 (00:10)
[2020-11-10 02:33] LABS: CALCIUM LEVEL 9.6 MG/DL (8.5-10.1); CREATININE FOR GFR 1.72 MG/DL (0.70-1.30); GLOMERULAR FILTRATION RATE 43.7 (>56); MAGNESIUM LEVEL 2.3 MG/DL (1.8-2.4); PHOSPHORUS LEVEL 3.2 MG/DL (2.5-4.9); POTASSIUM SERUM 4.1 MEQ/L (3.5-5.1)
[2020-11-10] MEDS ORDERED: FLUBLOK(EGG FREE)(QUAD)INFLUENZA VACC 0.5ML SYRINGE 18YRS & OLDER IM SCH (03:10)
[2020-11-10 03:21] LABS: VENOUS BASE EXCESS -18.4 (-2.0-2.0); VENOUS HCO3 8.1 MEQ/L (23.0-27.0); VENOUS O2 SATURATION 77.9 % (60.0-80.0); VENOUS PARTIAL PRESSURE CO2 22.2 mmHg (38.0-50.0); VENOUS PARTIAL PRESSURE O2 43.7 mmHg (30.0-50.0); VENOUS PH 7.179 UNITS (7.330-7.430); VENOUS TOTAL CO2 8.8 MEQ/L (24.0-28.0)
[2020-11-10] MEDS ORDERED: ONDANSETRON 4MG/2ML VIAL IV PRN (04:45)
[2020-11-10] MEDS: D5W/0.9% SODIUM CHLORIDE 1,000 ML IV SCH ×2 (05:28→09:02)
[2020-11-10 05:40] LABS: VENOUS BASE EXCESS -12.8 (-2.0-2.0); VENOUS HCO3 12.7 MEQ/L (23.0-27.0); VENOUS O2 SATURATION 98.2 % (60.0-80.0); VENOUS PARTIAL PRESSURE CO2 28.9 mmHg (38.0-50.0); VENOUS PARTIAL PRESSURE O2 118.1 mmHg (30.0-50.0); VENOUS PH 7.262 UNITS (7.330-7.430); VENOUS STANDARD HCO3 14.6 MEQ/L; VENOUS TOTAL CO2 13.6 MEQ/L (24.0-28.0)
--- NOTE | 2020-11-10 05:54 | HPEPDOC ---
[facility] Medical History & Physical Date of Admission Nov 09, 2020 Date of Service: Nov 09, 2020 Primary Care Physician: Kory De Oliveira Attending Physician: PILO MENDEZ MD History and Physical CHIEF COMPLAINT: Fatigue, diarrhea, and vomiting HISTORY OF PRESENT ILLNESS: Aubrey is a 59yo male with notable PMHx of IDDMI with recent admissions for DKA in March and July 2020, history of C. difficile infection (March 2020), hypertension, and hyperlipidemia, who presented to the ED on 11/09/20 complaining of watery diarrhea with small amounts of blood over the past 3 days, 2 episodes of reportedly light red-colored emesis this morning, and increased lethargy. He last ate 2 days ago (Sunday), and was able to tolerate drinking some small amounts of fluid this morning. He reports consistently taking both his long acting and short acting insulin as prescribed, and last took insulin this morning. He reports accompanying dizziness whenever standing over the past 34 days, as well as currently feeling as though his work of breathing is increased. He also reports currently feeling thirsty, having chills, and experiencing inter mittent palpitations without accompanying chest pain or chest pressure. Patients daughter (Elizabeth) reports he is had some episodes of confusion over the past couple days. Patient denies any current pleuritic chest pain, abdominal pain, nausea, or significant pain. Of note, patients daughter states that both of her children have been dealing with a gastrointestinal illness over the past few days and were in contact with the patient. In the ED, he was moderately tachypneic, yet. Otherwise, his vital signs were stable. Initial labs showed WBC of 24,000, serum glucose of 584, serum potassium 5.5, serum sodium 125, bicarbonate 5, BUN 40, and creatinine 1.89. A venous blood gas resulted with pH 7.056 and PCO2 13.8. Anion gap was 31. Beta hydroxybutyrate was greater than 46 and serum osmolality was 322. A hemoglobin A1c was 11.3%. Chest x-ray showed questionable infiltrate in the, and in the setting of his elevated white count, he was given a one-time dose of ceftriaxone. He was given an IV fluid bolus and started on an insulin drip. He was subsequently admitted to the ICU primarily for continued management of his diabetic ketoacidosis. PAST MEDICAL HISTORY: Insulin-dependent diabetes mellitus type 1 with recent DKA admissions in March and July 2020 History of C. difficile infection in March 2020, subsequently treated with oral vancomycin Hyperlipidemia Hypertension Chronic back pain Depression PAST SURGICAL HISTORY: Bilateral hernia repair Laminectomy SOCIAL HISTORY: Patient lives alone in [place], [place].. He is not working as he is on disability. 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 He is a current smoker, smoking 1 pack per day for the past 35 years. He currently drinks alcohol, averaging a sixpack of beer per week. He denies any current or former illegal drug use. FAMILY HISTORY: Father, leukemia One brother, myocardial infarction Two other brothers are diabetics (type I versus type II is not known) ALLERGIES: Please see below. REVIEW OF SYSTEMS: Constitutional: Reports fatigue, chills. Denies recent unintentional change in weight or night sweats. Cardiovascular: Reports intermittent palpitations. Denies chest pain or chest pressure. Respiratory: Reports increased work of breathing with some shortness of breath. Denies productive cough or pleuritic chest pain. Gastrointestinal: Reports 2 episodes of nausea this morning that were light red in color. Also reports 3 days of watery diarrhea with some small amounts of blood. Denies any current abdominal pain or nausea. Lymphatic: Denies any new lumps or bumps. Hematologic: Denies easy bleeding or easy bruising. Genitourinary: Denies dysuria or hematuria. Neurologic: Reports some dizziness upon standing over the past few days but denies any falls. Patient himself denies any issues as far as concentration, focus, or increased confusion. Patients daughter is present and she feels as though he has had episodes of some mild confusion over the past few days. HEENT: Denies diplopia or blurry vision. Denies dysphagia or odynophagia Psychiatric: Reports mood is been relatively well controlled of late. HOME MEDICATIONS: Please see below. PHYSICAL EXAMINATION: Vital signs: Temperature 97.8, heart rate of 84, respiratory rate of 26, blood pressure 115/56, SPO2 of 96% on room air Gen.: Tired appearing male. Appears older than stated age. Shallow and slightly rapid breathing. Alert and oriented 3. HEENT: Normocephalic, atraumatic. Noninjected, anicteric sclera. Pupils are reactive to light and accommodation. Mild conjunctival pallor. Oral cavity: Moderately dry mucous membranes with no pharyngeal erythema or exudate appreciated. Neck: Supple. No lymphadenopathy appreciated. Cardiovascular: Regular rate, regular rhythm. Normal S1, S2. No significant murmurs, rubs or gallops are appreciated. 2+ radial pulses bilaterally. Respiratory: Moderately diminished breath sounds bilaterally. No significant adventitious breath sounds are appreciated. Slightly tachypneic with decreased tidal volume. Symmetric chest expansion. No pursed lip breathing or visualize accessory muscle use. Speaking a few words at a time, not complete sentences. Gastrointestinal: Hypoactive bowel sounds throughout. Soft and nontender. There is a mild amount of distention periumbilical. He. No significant hepatosplenomegaly appreciated. There is no rigidity. Back: No tenderness over the spine or paraspinal muscles. No CVA tenderness. Extremities: Bilateral lower extremity as are free of edema. There is onychomycosis of toenails. Hands and feet are cooler to the touch. There is some scabbing over the dorsal aspect of both feet and some moderate amount of brown pigmentation discoloration of the distal lower extremities bilaterally. Neurologic: Patient is slightly lethargic, but is alert and oriented 3. He responds. All questions and commands appropriately. Non-dysarthric speech. Nose focal deficits appreciated. Psychiatric: Appeared exasperated at times during exam. Affect appears appropriate. LABORATORY DATA: Please see below. IMAGING: Portable/1-view chest x-ray, 11/09/20 Impression Focal hazy opacity laterally in the right mid lung zone. Possible focal pneumonia.The lung atkinson are otherwise clear. No pleural effusions. The lung atkinson were clear in 2019. MICROBIOLOGY: Please see below. ASSESSMENT & PLAN: This is a 59-year-old male with a notable past medical history of insulin-depen dent diabetes mellitus type 1 with 2 DKA admissions in the past 8 months, C. difficile infection in 03/2020, hypertension, and hyperlipidemia who was admitted under the care of the hospitalist service on 11/09/20 to the ICU for continued management of diabetic ketoacidosis, necessitating insulin drip and fluid resuscitation. #Diabetic ketoacidosis, likely secondary to gastrointestinal illness and right middle lobe pneumonia. BS 584, AG 31, positive ketones (beta-HB > 46), sOsm 322, corrected Ca 133, sK 5.5, VBG pH 7.056, WBC 24 -NPO except sips/chips -Insulin gtt; IVF with NS due to low corrected Ca and signs of moderate hypovolemia on exam; telemetry -f/u BMPs, Mg, Phos, VBG #Community-acquired pneumonia -opacity seen in right lung on cxr -s/p single dose of ceftriaxone in ED; q24 ceftriaxone continued -doxycycline ordered for atypical coverage with azithromycin avoided due to QT prolongation risk in setting of prn zofran #Gastroenteritis -currently npo with initial insulin gtt and DKA work-up ongoing -GI panel ordered as risk of infectious etiology exists - - WBC 24 with recent exposure to 2 grandchildren with stomach bug and watery, bloody diarrhea with blood -IVF running -occult stool ordered as pt reported some small amounts of blood in diarrhea over the past 3 days -of note, has h/o c. diff infection 8 months ago; s/p po vanc dosing and followed w/ ID as outpt #Acute renal failure likely pre-renal 2/2 dehydration from emesis and diarrhea -sCr 1.84; baseline 0.8-1 -IVF ordered after receiving NS bolus in ED -home Lisinopril held -f/u with repeat BMPs #Hypertension -home Lisinopril held in setting of acute renal failure #Hyperlipidemia -home atorvastatin and ASA contd once pt off npo #Depression -home duloxetine continued once pt off npo #History of insomnia -home zolpidem contd #Chronic back pain -home codeine-acetaminophen held -prn Tylenol ordered once pt no longer npo #DVT prophylaxis: sc qd lovenox #GI prophylaxis: IV protonix Code status: Full Code Disposition: ICU admission for DKA management and d/c home when medically stable, off insulin drip, and tolerating po diet Vital Signs Vital Signs Date Time Temp Pulse Resp B/P (MAP) Pulse Ox O2 Delivery O2 Flow Rate FiO2 11/10/20 04:00 99.2 84 18 118/67 (84) 99 Room Air Laboratory Data Labs 24H Laboratory Tests 2 11/09/20 20:59: Bedside Glucose (Misc Panel) 584*H 11/09/20 21:22: Immature Granulocyte % (Auto) 1.0, Neutrophils (%) (Auto) 84.5H, Lymphocytes (%) (Auto) 5.8L, Monocytes (%) (Auto) 8.5H, Eosinophils (%) (Auto) 0.0, Basophils (% ) (Auto) 0.2, Neutrophils # (Auto) 20.3H, Lymphocytes # (Auto) 1.4L, Monocytes # (Auto) 2.0H, Eosinophils # (Auto) 0.0, Basophils # (Auto) 0.1, Nucleated Red Blood Cells % (auto) 0.0, Blood Gas Bicarbonate Standard 7.5, Venous Blood pH 7.056L, Venous Blood Partial Pressure CO2 13.8L, Venous Blood Partial Pressure O2 138.1H, Venous Blood Total Carbon Dioxide 4.2L, Venous Blood HCO3 3.8L, Venous Blood Oxygen Saturation 98.1H, Venous Blood Base Excess -24.6L, Anion Gap 31H, Glomerular Filtration Rate 39.2L, Estimated Mean Plasma Glucose 278H, Hemoglobin A1c 11.3, Osmolality 322H, Calcium Level 10.2H, Total Bilirubin 0.9, Direct Bilirubin 0.3H, Aspartate Amino Transf (AST/SGOT) 26, Alanine Amino transferase (ALT/SGPT) 25, Alkaline Phosphatase 119H, Total Creatine Kinase 806H, Creatine Kinase MB 16.5H, Creatine Kinase MB Relative Index 2.05, Troponin I 0.08, Total Protein 7.3, Albumin 4.3, Albumin/Globulin Ratio 1.4, Lipase 291, Ethyl Alcohol Level < 0.003, B-Hydroxybutyrate > 46.00H, Coronavirus (COVID- 19)(PCR) NEGATIVE, Influenza Type A (RT-PCR) NEGATIVE, Influenza Type B (RT-PCR) NEGATIVE, Respiratory Syncytial Virus (PCR) NEGATIVE 11/09/20 21:48: Urine Color STRAW, Urine Appearance CLEAR, Urine pH 5.0, Urine Specific [place] 1.016, Urine Protein 1+H, Urine Glucose (UA) 3+H, Urine Ketones 2+H, Urine Blood 2+H, Urine Nitrite NEGATIVE, Urine Bilirubin NEGATIVE, Urine Urobilinogen 0.2, Urine Leukocyte Esterase NEGATIVE, Urine WBC (Auto) 2, Urine RBC (Auto) 0, Urine Hyaline Casts (Auto) 0, Urine Bacteria (Auto) NEGATIVE, Urine Squamous Epithelial Cells 0, Urine Sperm (Auto) , Urine Opiates Screen NEGATIVE, Urine Methadone Screen NEGATIVE, Urine Barbiturates Screen NEGATIVE, Urine Phencyclidine Screen NEGATIVE, Urine Amphetamines Screen NEGATIVE, Urine Benzo diazepines Screen NEGATIVE, Urine Cocaine Metabolite Screen NEGATIVE, Urine Cannabinoids Screen NEGATIVE 11/10/20 00:30: Bedside Glucose (Misc Panel) 451H 11/10/20 01:25: Blood Gas Puncture Site UNKNOWN, Venous Blood pH 7.179L, Venous Blood Partial Pressure CO2 22.2L, Venous Blood Partial Pressure O2 43.7, Venous Blood Total Carbon Dioxide 8.8L, Venous Blood HCO3 8.1L, Venous Blood Oxygen Saturation 77.9, Venous Blood Base Excess -18.4L, Anion Gap 26H, Glomerular Filtration Rate 43.7L, Osmolality 312H, Calcium Level 9.6, Phosphorus Level 3.2, Magnesium Level 2.3 11/10/20 02:54: Bedside Glucose (Misc Panel) 258H 11/10/20 03:51: Bedside Glucose (Misc Panel) 202H 11/10/20 04:54: Bedside Glucose (Misc Panel) 181H 11/10/20 05:31: Blood Gas Bicarbonate Standard 14.6, Venous Blood pH 7.262L, Venous Blood Partial Pressure CO2 28.9L, Venous Blood Partial Pressure O2 118.1H, Venous Blood Total Carbon Dioxide 13.6L, Venous Blood HCO3 12.7L, Venous Blood Oxygen Saturation 98.2H, Venous Blood Base Excess -12.8L CBC/BMP Laboratory Tests 11/09/20 21:22 11/10/20 01:25 Microbiology Microbiology 11/09/20 Blood Culture, Received Pending 11/09/20 Blood Culture, Received Pending Home Medications Scheduled Aspirin (Aspirin EC) 81 Mg Tab, 81 MG PO DAILY Atorvastatin Calcium (Atorvastatin Calcium) 20 Mg Tablet, 20 MG PO DAILY Duloxetine Hcl (Cymbalta) 60 Mg Cap, 60 MG PO DAILY Duloxetine Hcl (Duloxetine HCl) 30 Mg Cap, 30 MG PO QHS Insulin Glargine,Hum.rec.anlog (Basaglar Kwikpen U-100) 100 Unit/1 Ml Insuln.pen, 18 UNIT SC BID Insulin Lispro (Admelog Solostar) 100 Unit/1 Ml Insuln.pen, 1 UNIT SC TID SLIDING SCALE BS 150-200 =8 UNITS 201-250 = 10 UNITS 251-300 =12 UNITS Lisinopril (Lisinopril) 5 Mg Tablet, 5 MG PO DAILY Midodrine HCl (Midodrine HCl) 10 Mg Tablet, 10 MG PO TID 0800/1200/1600 Pantoprazole Sodium (Pantoprazole Sodium) 40 Mg Tablet.dr, 40 MG PO DAILY Saccharomyces Boulardii (Florastor) 250 Mg Capsule, 250 MG PO BIDWM Zolpidem Tartrate (Ambien) 10 Mg Tab, 10 MG PO QHS Scheduled PRN Acetaminophen with Codeine (Acetaminophen-Cod #3 Tablet) 1 Tab Tab, 2 TAB PO Q8H PRN for PAIN Meclizine HCl (Meclizine HCl) 25 Mg Tablet, 25 MG PO Q8H PRN for DIZZINESS Ondansetron HCl (Ondansetron HCl) 4 Mg Tablet, 4 MG PO Q4H PRN for NAUSEA OR VOMITING Allergies Coded Allergies: pregabalin (Verified Adverse Reaction, Unknown, LEG SWELLING, 07/21/20) A-FIB/CHADSVASC A-FIB History Current/History of A-Fib/PAF?: No Current PO Anticoag Therapy: No GME ATTESTATION GME ATTESTATION My faculty preceptor for this patient encounter was physically present during the encounter and was fully available. All aspects of the patient interview, examination, medical decision making process, and medical care plan development were reviewed and approved by the faculty preceptor. The faculty preceptor is aware and concurs with the plan as stated in the body of this note and will attest to such by his/her cosignature. ATTENDING NOTE IAlejo, have independently examined this patient and performed my own physical exam, as well as reviewed the documentation and edited where necessary. I have discussed in detail with the resident / student the findings and plan of treatment as documented by the resident / student and edited their note. I agree with their findings and treatment plan and have edited their documentation. I will continue to follow the patient during this hospital stay. DKA - admit to ICU for insulin drip per protocol CRYSTAL SOLIS D.O. Nov 10, 2020 05:54 PILO MENDEZ MD Nov 11, 2020 00:02
[2020-11-10 06:22] LABS: CALCIUM LEVEL 9.4 MG/DL (8.5-10.1); CREATININE FOR GFR 1.36 MG/DL (0.70-1.30); GLOMERULAR FILTRATION RATE 57.3 (>56); MAGNESIUM LEVEL 2.3 MG/DL (1.8-2.4); POTASSIUM SERUM 3.9 MEQ/L (3.5-5.1)
[2020-11-10] MEDS: KCL 10MEQ/100ML SWI (KRUN) 10 MEQ in IV 1 EA IV SCH ×2 (06:57→07:52)
[2020-11-10] MEDS: INSULIN IV RATE CHANGE DOCUMENTATION ML/HR XX SCH ×2 (07:56→09:12)
[2020-11-10 08:30] LABS: HEMATOCRIT 34.4 % (42.0-52.0); MEAN CORPUSCULAR HEMOGLOBIN 29.4 pg (27.0-33.0); MEAN CORPUSCULAR HGB CONC 34.9 g/dl (32.0-36.5); MEAN CORPUSCULAR VOLUME 84.3 fl (80.0-96.0); PLATELET COUNT, AUTOMATED 260 10^3/uL (150-450); RED BLOOD COUNT 4.08 10^6/uL (4.30-6.10); WHITE BLOOD COUNT 7.8 10^3/uL (4.0-10.0)
[2020-11-10] MEDS: DULoxetine 30 MG CAP (CYMBALTA) PO SCH (08:46)
[2020-11-10] MEDS: ATORVASTATIN 20 MG TAB PO SCH (08:46)
[2020-11-10] MEDS: PANTOPRAZOLE 40MG VIAL (C9113 PER 1) IV SCH (08:46)
[2020-11-10] MEDS: ENOXAPARIN 40MG/0.4ML SYRINGE (J1650 PER 10MG) SC SCH (08:46)
[2020-11-10] MEDS: ASPIRIN 81MG ENTERIC TABLET PO SCH (08:46)
[2020-11-10 09:36] LABS: VENOUS BASE EXCESS -8.3 (-2.0-2.0); VENOUS HCO3 17.5 MEQ/L (23.0-27.0); VENOUS O2 SATURATION 91.8 % (60.0-80.0); VENOUS PARTIAL PRESSURE CO2 36.9 mmHg (38.0-50.0); VENOUS PARTIAL PRESSURE O2 62.8 mmHg (30.0-50.0); VENOUS PH 7.294 UNITS (7.330-7.430); VENOUS STANDARD HCO3 17.7 MEQ/L; VENOUS TOTAL CO2 18.6 MEQ/L (24.0-28.0)
[2020-11-10] MEDS ORDERED: GLUCAGON INJ 1MG VIAL SC PRN (09:55)
[2020-11-10] MEDS ORDERED: DEXTROSE 50% 50 ML SYRINGE IV PRN (09:55)
[2020-11-10] MEDS ORDERED: GLUCOSE 4GM CHEW TABLET PO PRN (09:55)
[2020-11-10 10:03] LABS: BLOOD UREA NITROGEN 37 MG/DL (7-18); CALCIUM LEVEL 9.2 MG/DL (8.5-10.1); CARBON DIOXIDE LEVEL 20 MEQ/L (21-32); CHLORIDE LEVEL 111 MEQ/L (98-107); CREATININE FOR GFR 1.16 MG/DL (0.70-1.30); GLOMERULAR FILTRATION RATE > 60.0 (>56); GLUCOSE, FASTING 151 MG/DL (70-100); POTASSIUM SERUM 4.1 MEQ/L (3.5-5.1); SODIUM LEVEL 138 MEQ/L (136-145)
[2020-11-10 10:08] LABS: MAGNESIUM LEVEL 2.3 MG/DL (1.8-2.4); PHOSPHORUS LEVEL 1.4 MG/DL (2.5-4.9)
[2020-11-10] MEDS: NS 1,000 ML IV SCH ×2 (10:30→18:24)
[2020-11-10] MEDS: LEVEMIR (INSULIN DETEMIR) 1 UNITS/0.01ML SC SCH ×2 (10:30→20:35)
[2020-11-10] MEDS ORDERED: DOXYCYCLINE HYCLATE 100 MG in D5W MINI-BAG PLUS 100 ML IV SCH (12:00)
[2020-11-10] MEDS: HumaLOG INSULIN (NovoLOG) PER UNIT SC SCH ×3 (12:00→20:53)
[2020-11-10 13:00] LABS: BLOOD UREA NITROGEN 34 MG/DL (7-18); CALCIUM LEVEL 9.6 MG/DL (8.5-10.1); CARBON DIOXIDE LEVEL 19 MEQ/L (21-32); CHLORIDE LEVEL 110 MEQ/L (98-107); CREATININE FOR GFR 1.03 MG/DL (0.70-1.30); GLOMERULAR FILTRATION RATE > 60.0 (>56); GLUCOSE, FASTING 123 MG/DL (70-100); MAGNESIUM LEVEL 2.3 MG/DL (1.8-2.4); OSMOLALITY SERUM 293 MOSM/KG (275-295); PHOSPHORUS LEVEL 1.3 MG/DL (2.5-4.9); POTASSIUM SERUM 4.1 MEQ/L (3.5-5.1); SODIUM LEVEL 136 MEQ/L (136-145)
--- NOTE | 2020-11-10 13:42 | IPNPDOC ---
Date Seen The patient was seen on 11/10/20. Progress Note SUBJECTIVE: Improving acidosis, AG closed, multiple BS readings <200. Transitioned off insulin gtt to levemir, ISS, consistent carb diet. Denies chest pain, n/v/d, fevers. OBJECTIVE: PHYSICAL EXAMINATION: Vital signs: Please see below GENERAL: NAD, resting in bed, slightly lethargic. AAOx3 HEENT: AT/NC. Noninjected, anicteric sclera. Pupils are reactive to light and accommodation. Mild conjunctival pallor. Neck: Supple. No lymphadenopathy appreciated. No JVD Cardiovascular: S1S2 +, no M/R/G, NSR Respiratory: CTAB, no W/R/R GI: soft, nontender, BS + in 4 quad. Extremities: Bilateral lower extremity as are free of edema. There is onychomycosis of toenails. Hands and feet are cooler to the touch. There is some scabbing over the dorsal aspect of both feet and some moderate amount of brown pigmentation discoloration of the distal lower extremities bilaterally. Neurologic: CN 2-12 intact, lethargic but no focal deficits Psychiatric: Mood and affect appropriate LABORATORY DATA: Please see below. IMAGING: CXR 11/09/20: Focal hazy opacity laterally in the right mid lung zone. Possible focal pneumonia.The lung atkinson are otherwise clear. No pleural effusions. The lung atkinson were clear in 2019. MICROBIOLOGY: Please see below. ASSESSMENT: This is a 59-year-old male with a notable past medical history of insulin- dependent diabetes mellitus type 1 with 2 DKA admissions in the past 8 months, C. difficile infection in 03/2020, hypertension, and hyperlipidemia who was admitted under the care of the hospitalist service on 11/09/20 to the ICU for continued management of diabetic ketoacidosis, necessitating insulin drip and fluid resuscitation. PLAN: DKA likely 2/2 to gastroenteritis, RML community acquired PNA- resolved -BS improved, multiple readings < 200 -AG closed, pH improving -D/c insulin gtt, transitioned to levemir 25 U SC BID, ISS, FS AC/HS, consistent carb diet -Daily labs -Tx of infections below Community-acquired pneumonia -WBC wnl, afebrile -CXR above -Ceftriaxone, doxycycline, probiotic -F/u BCx and sputum cx Gastroenteritis -Hx of C. diff infection (8 mo ago) -No diarrhea overnight, improved nausea with no vomiting -Some of these symptoms also could have been 2/2 to DKA -C/w IVF -Send GI panel if diarrhea returns Acute renal failure likely pre-renal 2/2 dehydration from emesis and diarrhea -Cr 1.34- improving. Baseline 0.8-1 -Holding home ACEi -c/w IVFs, daily labs. Hypertension -Stable -Holding ACEi in setting of acute renal failure Hyperlipidemia -C/w statin #Depression -C/w duloxetine History of insomnia -C/w home med Chronic back pain -Stable -home codeine-acetaminophen held -prn Tylenol for now while still groggy DVT prophylaxis -SC qd lovenox GI prophylaxis -PPI DISPOSITION: Currently admitted to ICU but, if BS remained controlled, can likely downgrade soon. will need PT/OT. Plan is d/c home when medically improved. TOTAL AMOUNT OF ICU TIME spent caring for patient (nonprocedural): 40 MINS VS, I&O, 24H, Fishbone Vital Signs/I&O Vital Signs Date Time Temp Pulse Resp B/P (MAP) Pulse Ox O2 Delivery O2 Flow Rate FiO2 11/10/20 12:00 99.2 90 18 144/78 (100) 99 Room Air I&O- Last 24 Hours up to 6 AM 11/10/20 06:00 Intake Total 2337 ml Output Total 500 ml Balance 1837 ml Laboratory Data 24H LABS Laboratory Tests 2 11/09/20 20:59: Bedside Glucose (Misc Panel) 584*H 11/09/20 21:22: Immature Granulocyte % (Auto) 1.0, Neutrophils (%) (Auto) 84.5H, Lymphocytes (%) (Auto) 5.8L, Monocytes (%) (Auto) 8.5H, Eosinophils (%) (Auto) 0.0, Basophils (%) (Auto) 0.2, Neutrophils # (Auto) 20.3H, Lymphocytes # (Auto) 1.4L, Monocytes # (Auto) 2.0H, Eosinophils # (Auto) 0.0, Basophils # (Auto) 0.1, Nucleated Red Blood Cells % (auto) 0.0, Blood Gas Bicarbonate Standard 7.5, Venous Blood pH 7.056L, Venous Blood Partial Pressure CO2 13.8L, Venous Blood Partial Pressure O2 138.1H, Venous Blood Total Carbon Dioxide 4.2L, Venous Blood HCO3 3.8L, Venous Blood Oxygen Saturation 98.1H, Venous Blood Base Excess -24.6L, Anion Gap 31H, Glomerular Filtration Rate 39.2L, Estimated Mean Plasma Glucose 278H, Hemoglobin A1c 11.3, Osmolality 322H, Calcium Level 10.2H, Total Bilirubin 0.9, Direct Bilirubin 0.3H, Aspartate Amino Transf (AST/SGOT) 26, Alanine Aminotransferase (ALT/SGPT) 25, Alkaline Phosphatase 119H, Total Creatine Kinase 806H, Creatine Kinase MB 16.5H, Creatine Kinase MB Relative Index 2.05, Troponin I 0.08, Total Protein 7.3, Albumin 4.3, Albumin/Globulin Ratio 1.4, Lipase 291, Ethyl Alcohol Level < 0.003, B-Hydroxybutyrate > 46.00H, Coronavirus (COVID- 19)(PCR) NEGATIVE, Influenza Type A (RT-PCR) NEGATIVE, Influenza Type B (RT-PCR) NEGATIVE, Respiratory Syncytial Virus (PCR) NEGATIVE 11/09/20 21:48: Urine Color STRAW, Urine Appearance CLEAR, Urine pH 5.0, Urine Specific [place] 1.016, Urine Protein 1+H, Urine Glucose (UA) 3+H, Urine Ketones 2+H, Urine Blood 2+H, Urine Nitrite NEGATIVE, Urine Bilirubin NEGATIVE, Urine Urobilinogen 0.2, Urine Leukocyte Esterase NEGATIVE, Urine WBC (Auto) 2, Urine RBC (Auto) 0, Urine Hyaline Casts (Auto) 0, Urine Bacteria (Auto) NEGATIVE, Urine Squamous Epithelial Cells 0, Urine Sperm (Auto) , Urine Opiates Screen NEGATIVE, Urine Methadone Screen NEGATIVE, Urine Barbiturates Screen NEGATIVE, Urine Phencyclidine Screen NEGATIVE, Urine Amphetamines Screen NEGATIVE, Urine Benzodiazepines Screen NEGATIVE, Urine Cocaine Metabolite Screen NEGATIVE, Urine Cannabinoids Screen NEGATIVE 11/10/20 00:30: Bedside Glucose (Misc Panel) 451H 11/10/20 00:58: Bedside Glucose (Misc Panel) 381H 11/10/20 01:25: Blood Gas Puncture Site UNKNOWN, Venous Blood pH 7.179L, Venous Blood Partial Pressure CO2 22.2L, Venous Blood Partial Pressure O2 43.7, Venous Blood Total Carbon Dioxide 8.8L, Venous Blood HCO3 8.1L, Venous Blood Oxygen Saturation 77.9, Venous Blood Base Excess -18.4L, Anion Gap 26H, Glomerular Filtration Rate 43.7L, Osmolality 312H, Calcium Level 9.6, Phosphorus Level 3.2, Magnesium Level 2.3 11/10/20 01:52: Bedside Glucose (Misc Panel) 287H 11/10/20 02:54: Bedside Glucose (Misc Panel) 258H 11/10/20 03:51: Bedside Glucose (Misc Panel) 202H 11/10/20 04:54: Bedside Glucose (Misc Panel) 181H 11/10/20 05:31: Blood Gas Bicarbonate Standard 14.6, Venous Blood pH 7.262L, Venous Blood Part ial Pressure CO2 28.9L, Venous Blood Partial Pressure O2 118.1H, Venous Blood Total Carbon Dioxide 13.6L, Venous Blood HCO3 12.7L, Venous Blood Oxygen Saturation 98.2H, Venous Blood Base Excess -12.8L, Anion Gap 13, Glomerular Filtration Rate 57.3, Osmolality 301H, Calcium Level 9.4, Phosphorus Level 2.0#L, Magnesium Level 2.3 11/10/20 05:59: Bedside Glucose (Misc Panel) 183H 11/10/20 06:48: Bedside Glucose (Misc Panel) 165H 11/10/20 07:51: Bedside Glucose (Misc Panel) 180H 11/10/20 08:09: Nucleated Red Blood Cells % (auto) 0.0 11/10/20 08:14: Bedside Glucose (Misc Panel) 164H 11/10/20 09:05: Bedside Glucose (Misc Panel) 142H 11/10/20 09:24: Blood Gas Bicarbonate Standard 17.7, Venous Blood pH 7.294L, Venous Blood Partial Pressure CO2 36.9L, Venous Blood Partial Pressure O2 62.8H, Venous Blood Total Carbon Dioxide 18.6L, Venous Blood HCO3 17.5L, Venous Blood Oxygen Saturation 91.8H, Venous Blood Base Excess -8.3L, Anion Gap 7L, Glomerular Filtration Rate > 60.0, Osmolality 296H, Calcium Level 9.2, Phosphorus Level 1.4#L, Magnesium Level 2.3 11/10/20 10:06: Bedside Glucose (Misc Panel) 135H 11/10/20 11:07: Bedside Glucose (Misc Panel) 123H 11/10/20 12:03: Anion Gap 7L, Glomerular Filtration Rate > 60.0, Osmolality 293, Calcium Level 9.6, Phosphorus Level 1.3L, Magnesium Level 2.3 11/10/20 12:24: Bedside Glucose (Misc Panel) 119H CBC/BMP Laboratory Tests 11/09/20 21:22 11/10/20 01:25 11/10/20 05:31 11/10/20 08:09 11/10/20 09:24 11/10/20 12:03 Microbiology Microbiology 11/09/20 Blood Culture, Received Pending 11/09/20 Blood Culture, Received Pending Current Medications Current Medications Medications (Trade) Dose Ordered Sig/Radha Route PRN Reason Start Time Stop Time Status Last Admin Dose Admin Acetaminophen (Tylenol Tab) 650 mg Q4HP PRN PO pain or fever 11/10/20 00:05 Aspirin (Ecotrin) 81 mg DAILY PO 11/10/20 09:00 11/10/20 08:46 Atorvastatin Calcium (Lipitor) 20 mg DAILY PO 11/10/20 09:00 11/10/20 08:46 Ceftriaxone Sodium 1 gm/ Dextrose 50 ml @ 100 mls/hr Q24H IV 11/11/20 00:00 Dextrose (Dextrose 50%) 25 ml ASDIRECTED PRN IV SEE LABEL COMMENTS 11/10/20 09:55 Dextrose/Sodium Chloride 1,000 ml @ 250 mls/hr Q4H IV 11/10/20 05:00 11/10/20 09:54 DC 11/10/20 09:02 Doxycycline Hyclate 100 mg/ Dextrose 100 ml @ 100 mls/hr Q12H IV 11/10/20 12:00 11/10/20 11:21 Duloxetine HCl (Cymbalta) 60 mg DAILY PO 11/10/20 09:00 11/10/20 08:46 Enoxaparin Sodium (Lovenox) 40 mg DAILY SC 11/10/20 09:00 11/10/20 08:46 Glucagon (Glucagon) 1 mg ASDIRECTED PRN SC SEE LABEL COMMENTS 11/10/20 09:55 Glucose (Glucose) 16 GM ASDIRECTED PRN PO SEE LABEL COMMENTS 11/10/20 09:55 Home Med (Med Rec Complete!) ASDIRECTED XX 11/09/20 22:05 11/09/20 22:09 DC Influenza Virus Vaccine (Flublok Quad(Egg-Free)18y&Older Influenza) 0.5 ml ASDIRECTED IM 11/10/20 03:10 Insulin Detemir (Levemir Insulin) 20 units BID SC 11/10/20 21:00 11/10/20 09:56 DC Insulin Detemir (Levemir Insulin) 25 units BID SC 11/10/20 09:00 11/10/20 10:30 Insulin Human Lispro (HumaLOG INSULIN) SEE PROTOCOL TABLE AC SC 11/10/20 12:00 Insulin Human Lispro (HumaLOG INSULIN) SEE PROTOCOL TABLE QHS SC 11/10/20 21:00 Insulin Human Regular 100 unit/ IV Miscellaneous Supplies 100 ml @ 8.182 mls/ hr [id number] IV 11/09/20 22:38 11/10/20 00:13 DC 11/09/20 23:28 Insulin Human Regular 100 unit/ IV Miscellaneous Supplies 100 ml @ 18 mls/hr Q5H34M IV 11/09/20 22:17 Cancel Insulin Human Regular 100 unit/ IV Miscellaneous Supplies 100 ml @ 0 mls/hr Q0M IV 11/10/20 00:10 11/10/20 09:54 DC Non-Formulary Medication (Insulin Iv Rate Change Documentation ml/ Hr) ASDIRECTED XX 11/09/20 22:20 12/09/20 22:19 Cancel Non-Formulary Medication (Insulin Iv Rate Change Documentation ml/ Hr) ASDIRECTED XX 11/09/20 22:40 11/10/20 00:13 DC Non-Formulary Medication (Insulin Iv Rate Change Documentation ml/ Hr) ASDIRECTED XX 11/10/20 00:10 11/10/20 09:54 DC 11/10/20 09:12 Ondansetron HCl (ZOFRAN INJection) 4 mg Q6HP PRN IV NAUSEA OR VOMITING 11/10/20 04:45 Pantoprazole Sodium (Protonix) 40 mg DAILY IV 11/10/20 09:00 11/10/20 08:46 Potassium Chloride 10 meq/ IV Miscellaneous Supplies 100 ml @ 100 mls/hr 0630,0730 IV 11/10/20 06:30 11/10/20 10:00 DC 11/10/20 07:52 Sodium Chloride 1,000 ml @ 125 mls/hr Q8H IV 11/10/20 09:55 11/10/20 10:30 Sodium Chloride 1,000 ml @ 250 mls/hr Q4H IV 11/09/20 23:43 11/10/20 04:57 DC 11/09/20 23:43 Allergies Coded Allergies: pregabalin (Verified Adverse Reaction, Unknown, LEG SWELLING, 07/21/20) Sandra Peace MD Nov 10, 2020 13:41
[2020-11-10] MEDS: LACTOBACILLUS ACIDOPHILUS CAP (BACID) PO SCH (18:24)
[2020-11-10] MEDS: DOXYCYCLINE HYCLATE 100MG TABLET PO SCH (20:34)
[2020-11-10] MEDS ORDERED: LEVEMIR (INSULIN DETEMIR) 1 UNITS/0.01ML SC SCH (21:00)
[2020-11-11] MEDS ORDERED: cefTRIAXone SOD 1 GM in D5W MINI-BAG PLUS 50 ML IV SCH ×2
[2020-11-11 00:02] LABS: VENOUS BASE EXCESS -5.5 (-2.0-2.0); VENOUS HCO3 19.2 MEQ/L (23.0-27.0); VENOUS O2 SATURATION 92.3 % (60.0-80.0); VENOUS PARTIAL PRESSURE CO2 34.8 mmHg (38.0-50.0); VENOUS PARTIAL PRESSURE O2 60.7 mmHg (30.0-50.0); VENOUS PH 7.359 UNITS (7.330-7.430); VENOUS STANDARD HCO3 19.8 MEQ/L; VENOUS TOTAL CO2 20.2 MEQ/L (24.0-28.0)
[2020-11-11 00:22] LABS: MAGNESIUM LEVEL 2.1 MG/DL (1.8-2.4); PHOSPHORUS LEVEL 1.4 MG/DL (2.5-4.9)
[2020-11-11 01:47] LABS: BLOOD UREA NITROGEN 24 MG/DL (7-18); CALCIUM LEVEL 9.2 MG/DL (8.5-10.1); CARBON DIOXIDE LEVEL 19 MEQ/L (21-32); CHLORIDE LEVEL 110 MEQ/L (98-107); CREATININE FOR GFR 0.77 MG/DL (0.70-1.30); GLOMERULAR FILTRATION RATE > 60.0 (>56); GLUCOSE, FASTING 54 MG/DL (70-100); POTASSIUM SERUM 3.7 MEQ/L (3.5-5.1); SODIUM LEVEL 138 MEQ/L (136-145)
[2020-11-11] MEDS: NS 1,000 ML IV SCH ×2 (04:40→12:26)
[2020-11-11 05:15] VITALS: BP 143/87
[2020-11-11] MEDS: HumaLOG INSULIN (NovoLOG) PER UNIT SC SCH ×4 (07:30→21:00)
[2020-11-11 08:00] LABS: HEMATOCRIT 30.9 % (42.0-52.0); HEMOGLOBIN 10.8 g/dl (13.5-17.5); MEAN CORPUSCULAR VOLUME 82.8 fl (80.0-96.0); PLATELET COUNT, AUTOMATED 219 10^3/uL (150-450); RED BLOOD COUNT 3.73 10^6/uL (4.30-6.10); WHITE BLOOD COUNT 5.5 10^3/uL (4.0-10.0)
[2020-11-11 08:28] LABS: ALBUMIN 3.1 GM/DL (3.2-5.2); ALT/SGPT 21 U/L (12-78); BILIRUBIN,TOTAL 0.3 MG/DL (0.2-1.0); BLOOD UREA NITROGEN 18 MG/DL (7-18); CALCIUM LEVEL 8.7 MG/DL (8.5-10.1); CARBON DIOXIDE LEVEL 22 MEQ/L (21-32); CHLORIDE LEVEL 112 MEQ/L (98-107); GLOMERULAR FILTRATION RATE > 60.0 (>56); GLUCOSE, FASTING 57 MG/DL (70-100); POTASSIUM SERUM 3.3 MEQ/L (3.5-5.1); SODIUM LEVEL 140 MEQ/L (136-145); TOTAL PROTEIN 5.2 GM/DL (6.4-8.2)
[2020-11-11] MEDS: LEVEMIR (INSULIN DETEMIR) 1 UNITS/0.01ML SC SCH ×2 (08:43→20:43)
[2020-11-11] MEDS: ENOXAPARIN 40MG/0.4ML SYRINGE (J1650 PER 10MG) SC SCH (08:43)
[2020-11-11] MEDS: DULoxetine 30 MG CAP (CYMBALTA) PO SCH (08:44)
[2020-11-11] MEDS: ATORVASTATIN 20 MG TAB PO SCH (08:44)
[2020-11-11] MEDS: DOXYCYCLINE HYCLATE 100MG TABLET PO SCH (08:44)
[2020-11-11] MEDS: ASPIRIN 81MG ENTERIC TABLET PO SCH (08:44)
[2020-11-11] MEDS: LACTOBACILLUS ACIDOPHILUS CAP (BACID) PO SCH ×2 (08:44→18:36)
[2020-11-11] MEDS: PANTOPRAZOLE 40MG VIAL (C9113 PER 1) IV SCH (08:44)
[2020-11-11] MEDS ORDERED: POTASSIUM CHLORIDE 10 MEQ SR TABLET PO ONE (10:00)
[2020-11-11 14:57] VITALS: BP 145/87
--- NOTE | 2020-11-11 15:53 | IPNPDOC ---
Date Seen The patient was seen on 11/11/20. Progress Note SUBJECTIVE: BS on lower side of normal, poor appetite but improved slightly. Decreased levemir to home 18 U BID from 25 BID. PT: would benefit from one more session prior to d/c. Denies chest pain, n/v/d, fevers. OBJECTIVE: PHYSICAL EXAMINATION: Vital signs: Please see below GENERAL: NAD, resting in bed, AAOx3 HEENT: AT/NC. Noninjected, anicteric sclera. Pupils are reactive to light and accommodation. Mild conjunctival pallor. Neck: Supple. No lymphadenopathy appreciated. No JVD Cardiovascular: S1S2 +, no M/R/G, NSR Respiratory: CTAB, no W/R/R GI: soft, nontender, BS + in 4 quad. Extremities: Bilateral lower extremity as are free of edema. No cyanosis, clubbing or edema Neurologic: CN 2-12 intact, no focal deficits Psychiatric: Mood and affect appropriate LABORATORY DATA: Please see below. IMAGING: CXR 11/09/20: Focal hazy opacity laterally in the right mid lung zone. Possible focal pneumonia.The lung atkinson are otherwise clear. No pleural effusions. The lung atkinson were clear in 2019. MICROBIOLOGY: Please see below. ASSESSMENT: Pt is a 59-year-old male with a notable past medical history of insulin- dependent diabetes mellitus type 1 with 2 DKA admissions in the past 8 months, C. difficile infection in 03/2020, hypertension, and hyperlipidemia who was adm itted under the care of the hospitalist service on 11/09/20 to the ICU for continued management of diabetic ketoacidosis, necessitating insulin drip and fluid resuscitation. PLAN: Uncontrolled DM type II likely 2/2 to gastroenteritis, RML community acquired PNA -BS improved but now lower side of normal due to poor intake -Decreased levemir to 18 U BID, ISS, FS AC/HS, consistent carb diet, stopping fluids today -HbA1c 11.3 -Daily labs -Tx of infections below Community-acquired pneumonia -WBC wnl, afebrile -CXR above -Switched to PO levofloxacin, probiotic -Bcx neg -Unable to provide sputum cx Gastroenteritis -Hx of C. diff infection (8 mo ago) -No diarrhea , n/v after admission -Stopped IVFs, encouraging fluid hydration during day -Send GI panel if diarrhea returns Hypertension -Stable -Stopping fluids -Holding ACEi in setting of recent acute renal failure Hyperlipidemia -C/w statin Depression -C/w duloxetine History of insomnia -C/w home med Chronic back pain -Stable -Resume home codeine-acetaminophen DVT prophylaxis -SC qd lovenox GI prophylaxis -PPI Resolved issues: DKA Acute renal failure likely pre-renal 2/2 dehydration from emesis and diarrhea DISPOSITION: Tolerating diet well but appetite is not great. C/w PT until tomorrow, likely discharge home to f/u with PCP 11/12/20. VS, I&O, 24H, Fishbone Vital Signs/I&O Vital Signs Date Time Temp Pulse Resp B/P (MAP) Pulse Ox O2 Delivery O2 Flow Rate FiO2 11/11/20 05:15 98.2 83 17 143/87 (105) 99 Room Air I&O- Last 24 Hours up to 6 AM 11/11/20 05:59 Intake Total 3304.5 ml Output Total 1100 ml Balance 2204.5 ml Laboratory Data 24H LABS Laboratory Tests 2 11/10/20 17:09: Bedside Glucose (Misc Panel) 87 11/10/20 19:55: Bedside Glucose (Misc Panel) 103 11/10/20 23:46: Blood Gas Bicarbonate Standard 19.8, Venous Blood pH 7.359, Venous Blood Partial Pressure CO2 34.8L, Venous Blood Partial Pressure O2 60.7H, Venous Blood Total Carbon Dioxide 20.2L, Venous Blood HCO3 19.2L, Venous Blood Oxygen Saturation 92.3H, Venous Blood Base Excess -5.5L, Anion Gap 9, Glomerular Filtration Rate > 60.0, Calcium Level 9.2 11/11/20 06:51: Anion Gap 6L, Glomerular Filtration Rate > 60.0, Calcium Level 8.7, Nucleated Red Blood Cells % (auto) 0.0, Total Bilirubin 0.3#, Aspartate Amino Transf (AST/SGOT) 24, Alanine Aminotransferase (ALT/SGPT) 21, Alkaline Phosphatase 66, Total Protein 5.2#L, Albumin 3.1#L, Albumin/Globulin Ratio 1.5 11/11/20 07:29: Bedside Glucose (Misc Panel) 82 11/11/20 12:10: Bedside Glucose (Misc Panel) 118H CBC/BMP Laboratory Tests 11/10/20 23:46 11/11/20 06:51 Microbiology Microbiology 11/09/20 Blood Culture - Preliminary, Resulted No growth after 24 hours . All specim... 11/09/20 Blood Culture - Preliminary, Resulted No growth after 24 hours . All specim... Current Medications Current Medications Medications (Trade) Dose Ordered Sig/Radha Route PRN Reason Start Time Stop Time Status Last Admin Dose Admin Acetaminophen (Tylenol Tab) 650 mg Q4HP PRN PO pain or fever 11/10/20 00:05 Aspirin (Ecotrin) 81 mg DAILY PO 11/10/20 09:00 11/11/20 08:44 Atorvastatin Calcium (Lipitor) 20 mg DAILY PO 11/10/20 09:00 11/11/20 08:44 Ceftriaxone Sodium 1 gm/ Dextrose 50 ml @ 100 mls/hr Q24H IV 11/11/20 00:00 11/11/20 00:15 Dextrose (Dextrose 50%) 25 ml ASDIRECTED PRN IV SEE LABEL COMMENTS 11/10/20 09:55 Dextrose/Sodium Chloride 1,000 ml @ 250 mls/hr Q4H IV 11/10/20 05:00 11/10/20 09:54 DC 11/10/20 09:02 Doxycycline Hyclate (Vibramycin) 100 mg BID PO 11/10/20 21:00 11/11/20 08:44 Doxycycline Hyclate 100 mg/ Dextrose 100 ml @ 100 mls/hr Q12H IV 11/10/20 12:00 11/10/20 13:32 DC 11/10/20 11:21 Duloxetine HCl (Cymbalta) 60 mg DAILY PO 11/10/20 09:00 11/11/20 08:44 Enoxaparin Sodium (Lovenox) 40 mg DAILY SC 11/10/20 09:00 11/11/20 08:43 Glucagon (Glucagon) 1 mg ASDIRECTED PRN SC SEE LABEL COMMENTS 11/10/20 09:55 Glucose (Glucose) 16 GM ASDIRECTED PRN PO SEE LABEL COMMENTS 11/10/20 09:55 Home Med (Med Rec Complete!) ASDIRECTED XX 11/09/20 22:05 11/09/20 22:09 DC Influenza Virus Vaccine (Flublok Quad(Egg-Free)18y&Older Influenza) 0.5 ml ASDIRECTED IM 11/10/20 03:10 Insulin Detemir (Levemir Insulin) 18 units BID SC 11/11/20 08:00 11/11/20 08:43 Insulin Detemir (Levemir Insulin) 20 units BID SC 11/10/20 21:00 11/10/20 09:56 DC Insulin Detemir (Levemir Insulin) 25 units BID SC 11/10/20 09:00 11/11/20 07:54 DC 11/10/20 20:35 Insulin Human Lispro (HumaLOG INSULIN) SEE PROTOCOL TABLE AC SC 11/10/20 12:00 11/11/20 12:26 Insulin Human Lispro (HumaLOG INSULIN) SEE PROTOCOL TABLE QHS SC 11/10/20 21:00 Insulin Human Regular 100 unit/ IV Miscellaneous Supplies 100 ml @ 8.182 mls/ hr [id number] IV 11/09/20 22:38 11/10/20 00:13 DC 11/09/20 23:28 Insulin Human Regular 100 unit/ IV Miscellaneous Supplies 100 ml @ 18 mls/hr Q5H34M IV 11/09/20 22:17 Cancel Insulin Human Regular 100 unit/ IV Miscellaneous Supplies 100 ml @ 0 mls/hr Q0M IV 11/10/20 00:10 11/10/20 09:54 DC Lactobacillus Acidophilus (Bacid) 1 ea BIDWM PO 11/10/20 18:00 11/11/20 08:44 Non-Formulary Medication (Insulin Iv Rate Change Documentation ml/ Hr) ASDIRECTED XX 11/09/20 22:20 12/09/20 22:19 Cancel Non-Formulary Medication (Insulin Iv Rate Change Documentation ml/ Hr) ASDIRECTED XX 11/09/20 22:40 11/10/20 00:13 DC Non-Formulary Medication (Insulin Iv Rate Change Documentation ml/ Hr) ASDIRECTED XX 11/10/20 00:10 11/10/20 09:54 DC 11/10/20 09:12 Ondansetron HCl (ZOFRAN INJection) 4 mg Q6HP PRN IV NAUSEA OR VOMITING 11/10/20 04:45 Pantoprazole Sodium (Protonix) 40 mg DAILY IV 11/10/20 09:00 11/11/20 08:44 Potassium Chloride 10 meq/ IV Miscellaneous Supplies 100 ml @ 100 mls/hr 0630,0730 IV 11/10/20 06:30 11/10/20 10:00 DC 11/10/20 07:52 Sodium Chloride 1,000 ml @ 125 mls/hr Q8H IV 11/10/20 09:55 11/11/20 12:26 Sodium Chloride 1,000 ml @ 250 mls/hr Q4H IV 11/09/20 23:43 11/10/20 04:57 DC 11/09/20 23:43 Allergies Coded Allergies: pregabalin (Verified Adverse Reaction, Unknown, LEG SWELLING, 07/21/20) Sandra Peace MD Nov 11, 2020 15:53
[2020-11-11] MEDS ORDERED: ACETAMINOPH W/CODEINE #3 TAB UD PO PRN (16:00)
[2020-11-11 22:00] VITALS: BP 147/87
[2020-11-12 05:34] VITALS: BP_SYST 120; BP_SYST 128; BP_DIAS 74
[2020-11-12] MEDS ORDERED: LevoFLOXacin 500 MG TABLET PO SCH (06:00)
[2020-11-12 07:03] LABS: HEMATOCRIT 32.9 % (42.0-52.0); HEMOGLOBIN 11.2 g/dl (13.5-17.5); MEAN CORPUSCULAR HEMOGLOBIN 28.9 pg (27.0-33.0); MEAN CORPUSCULAR VOLUME 84.8 fl (80.0-96.0); PLATELET COUNT, AUTOMATED 197 10^3/uL (150-450); RED BLOOD COUNT 3.88 10^6/uL (4.30-6.10); WHITE BLOOD COUNT 4.2 10^3/uL (4.0-10.0)
[2020-11-12 07:22] LABS: ALBUMIN 3.1 GM/DL (3.2-5.2); ALT/SGPT 21 U/L (12-78); BILIRUBIN,TOTAL 0.5 MG/DL (0.2-1.0); BLOOD UREA NITROGEN 8 MG/DL (7-18); CALCIUM LEVEL 8.7 MG/DL (8.5-10.1); CARBON DIOXIDE LEVEL 28 MEQ/L (21-32); CHLORIDE LEVEL 111 MEQ/L (98-107); CREATININE FOR GFR 0.49 MG/DL (0.70-1.30); GLOMERULAR FILTRATION RATE > 60.0 (>56); GLUCOSE, FASTING 157 MG/DL (70-100); POTASSIUM SERUM 3.5 MEQ/L (3.5-5.1); SODIUM LEVEL 141 MEQ/L (136-145); TOTAL PROTEIN 5.3 GM/DL (6.4-8.2)
[2020-11-12] MEDS ORDERED: RISATAB3 PO (07:52)
[2020-11-12] MEDS ORDERED: LEVO500T3 PO (07:52)
[2020-11-12] MEDS: DULoxetine 30 MG CAP (CYMBALTA) PO SCH (08:49)
[2020-11-12] MEDS: HumaLOG INSULIN (NovoLOG) PER UNIT SC SCH (08:49)
[2020-11-12] MEDS: ASPIRIN 81MG ENTERIC TABLET PO SCH (08:49)
[2020-11-12] MEDS: ATORVASTATIN 20 MG TAB PO SCH (08:49)
[2020-11-12] MEDS: LEVEMIR (INSULIN DETEMIR) 1 UNITS/0.01ML SC SCH (08:49)
[2020-11-12] MEDS: LACTOBACILLUS ACIDOPHILUS CAP (BACID) PO SCH (08:49)
[2020-11-12] MEDS: ENOXAPARIN 40MG/0.4ML SYRINGE (J1650 PER 10MG) SC SCH (08:50)
[2020-11-12] MEDS ORDERED: PANTOPRAZOLE 40MG TAB (PROTONIX) PO SCH (09:00)
--- NOTE | 2020-11-12 16:40 | DS.PDOC ---
Discharge Summary General Date of Admission Nov 09, 2020 at 23:42 Date of Discharge 11/12/20 Attending Physician: Sandra Peace MD Discharge Summary HISTORY OF PRESENT ILLNESS: Aubrey is a 59yo male with notable PMHx of IDDMI with recent admissions for DKA in March and July 2020, history of C. difficile infection (March 2020), hypertension, and hyperlipidemia, who presented to the ED on 11/09/20 complaining of watery diarrhea with small amounts of blood over the past 3 days, 2 episodes of reportedly light red-colored emesis this morning, and increased lethargy. He last ate 2 days ago (Sunday), and was able to tolerate drinking some small amounts of fluid this morning. He reports consistently taking both his long acting and short acting insulin as prescribed, and last took insulin this morning. He reports accompanying dizziness whenever standing over the past 34 days, as well as currently feeling as though his work of breathing is increased. He also reports currently feeling thirsty, having chills, and experiencing intermittent palpitations without accompanying chest pain or chest pressure. Patients daughter (Elizabeth) reports he is had some episodes of confusion over the past couple days. Patient denies any current pleuritic chest pain, abdominal pain, nausea, or significant pain. Of note, patients daughter states that both of her children have been dealing with a gastrointestinal illness over the past few days and were in contact with the patient. In the ED, he was moderately tachypneic, yet. Otherwise, his vital signs were stable. Initial labs showed WBC of 24,000, serum glucose of 584, serum potassium 5.5, serum sodium 125, bicarbonate 5, BUN 40, and creatinine 1.89. A venous blood gas resulted with pH 7.056 and PCO2 13.8. Anion gap was 31. Beta hydroxybutyrate was greater than 46 and serum osmolality was 322. A hemoglobin A1c was 11.3%Chest x-ray showed questionable infiltrate in the, and in the setting of his elevated white count, he was given a one-time dose of ceftriaxone. He was given an IV fluid bolus and started on an insulin drip. He was subsequently admitted to the ICU primarily for continued management of his diabetic ketoacidosis. HOSPITAL COURSE: The patient was Insulin Drip in the ICU. Sugars improved and he was transitioned to Levemir and insulin sliding scale, diet was advanced. Anion gap and pH had improved significantly. Electrolytes remain stable. He was transitioned from ICU to [facility] without telemetry. He continued to advance his diet and nausea/vomiting improved. He had no episodes of diarrhea during this hospitalization. By 11/12/2020 the patient's blood sugar was within his normal range and she was tolerating his home dose of insulin fine. He was discharged home to continue his prior medications, encouraging hydration and to follow-up with his primary care provider after the weekend. He will continue with levofloxacin and probiotic for several more days after discharge to complete treatment for pneumonia. PAST MEDICAL HISTORY: Insulin-dependent diabetes mellitus type 1 with recent DKA admissions in March and July 2020 History of C. difficile infection in March 2020, subsequently treated with oral vancomycin Hyperlipidemia Hypertension Chronic back pain Depression PAST SURGICAL HISTORY: Bilateral hernia repair Laminectomy SOCIAL HISTORY: Patient lives alone in [place], [place].. He is not working as he is on disability. 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 He is a current smoker, smoking 1 pack per day for the past 35 years. He currently drinks alcohol, averaging a sixpack of beer per week. He denies any current or former illegal drug use. FAMILY HISTORY: Father, leukemia One brother, myocardial infarction Two other brothers are diabetics (type I versus type II is not known) DISCHARGE MEDS: Please see below PHYSICAL EXAMINATION: Vital signs: Please see below GENERAL: NAD, resting in bed, AAOx3 HEENT: AT/NC. Noninjected, anicteric sclera. Pupils are reactive to light and accommodation. Mild conjunctival pallor. Neck: Supple. No lymphadenopathy appreciated. No JVD Cardiovascular: S1S2 +, no M/R/G, NSR Respiratory: CTAB, no W/R/R GI: soft, nontender, BS + in 4 quad. Extremities: Bilateral lower extremity as are free of edema. No cyanosis, clubbing or edema Neurologic: CN 2-12 intact, no focal deficits Psychiatric: Mood and affect appropriate LABORATORY DATA: Please see below. IMAGING: CXR 11/09/20: Focal hazy opacity laterally in the right mid lung zone. Possible focal pneumonia.The lung atkinson are otherwise clear. No pleural effusions. The lung atkinson were clear in 2019. MICROBIOLOGY: Please see below. ASSESSMENT: Pt is a 59-year-old male with a notable past medical history of insulin- dependent diabetes mellitus type 1 with 2 DKA admissions in the past 8 months, C. difficile infection in 03/2020, hypertension, and hyperlipidemia who was admitted under the care of the hospitalist service on 11/09/20 to the ICU for continued management of diabetic ketoacidosis, necessitating insulin drip and fluid resuscitation. PLAN: Uncontrolled DM type II likely 2/2 to gastroenteritis, RML community acquired PNA -BS much improved, stable -D/c home today with levemir to 18 U BID, consistent carb diet, encourage hydration during the day -HbA1c 11.3 -Tx of infections below Community-acquired pneumonia -C/w PO levofloxacin, probiotic at discharge Gastroenteritis -Hx of C. diff infection (8 mo ago) -No diarrhea , n/v after admission -On PO levofloxacin, probiotic at discharge Hypertension -Stable -C/w home meds Hyperlipidemia -C/w statin Depression -C/w duloxetine History of insomnia -C/w home med Chronic back pain -Stable -Resume home codeine-acetaminophen Resolved issues: DKA Acute renal failure likely pre-renal 2/2 dehydration from emesis and diarrhea DISPOSITION: D/c home today to f/u with PCP TIME SPENT ON DISCHARGE: 35 minutes. Vital Signs/I&Os Vital Signs Date Time Temp Pulse Resp B/P (MAP) Pulse Ox O2 Delivery O2 Flow Rate FiO2 11/12/20 05:34 98.4 83 16 128/74 (92) 97 Room Air I&O- Last 24 Hours up to 6 AM 11/12/20 06:00 Intake Total 3430 ml Balance 3430 ml Laboratory Data Labs 24H Laboratory Tests 2 11/11/20 17:08: Bedside Glucose (Misc Panel) 81 11/11/20 20:19: Bedside Glucose (Misc Panel) 200H 11/12/20 06:34: Nucleated Red Blood Cells % (auto) 0.0, Anion Gap 2L, Glomerular Filtration Rate > 60.0, Calcium Level 8.7, Total Bilirubin 0.5#, Aspartate Amino Transf (AST/SGOT) 16, Alanine Aminotransferase (ALT/SGPT) 21, Alkaline Phosphatase 71, Total Protein 5.3L, Albumin 3.1L, Albumin/Globulin Ratio 1.4 CBC/BMP Laboratory Tests 11/12/20 06:34 FSBS Laboratory Tests Test 11/11/20 17:08 11/11/20 20:19 Range/Units Bedside Glucose (Misc Panel) 81 200 70-105 MG/DL Microbiology Microbiology 11/09/20 Blood Culture - Preliminary, Resulted No Growth after 48 hours. All Specime... 11/09/20 Blood Culture - Preliminary, Resulted No Growth after 48 hours. All Specime... Discharge Medications Scheduled Aspirin (Aspirin EC) 81 Mg Tab, 81 MG PO DAILY, (Reported) Atorvastatin Calcium (Atorvastatin Calcium) 20 Mg Tablet, 20 MG PO DAILY, (Reported) Duloxetine Hcl (Cymbalta) 60 Mg Cap, 60 MG PO DAILY, (Reported) Duloxetine Hcl (Duloxetine HCl) 30 Mg Cap, 30 MG PO QHS, (Reported) Insulin Glargine,Hum.rec.anlog (Basaglar Kwikpen U-100) 100 Unit/1 Ml Insuln.pen, 18 UNIT SC BID, (Reported) Insulin Lispro (Admelog Solostar) 100 Unit/1 Ml Insuln.pen, 1 UNIT SC TID, (Reported) SLIDING SCALE BS 150-200 =8 UNITS 201-250 = 10 UNITS 251-300 =12 UNITS L.acidoph/L.bulg/B.bif/S.therm (Jannet-Bid Caplet) 1 Each Tablet, 1 EA PO BIDWM Levofloxacin (Levofloxacin) 500 Mg Tablet, 500 MG PO DAILY@06 Lisinopril (Lisinopril) 5 Mg Tablet, 5 MG PO DAILY, (Reported) Midodrine HCl (Midodrine HCl) 10 Mg Tablet, 10 MG PO TID, (Reported) 0800/1200/1600 Pantoprazole Sodium (Pantoprazole Sodium) 40 Mg Tablet.dr, 40 MG PO DAILY, (Reported) Saccharomyces Boulardii (Florastor) 250 Mg Capsule, 250 MG PO BIDWM, (Reported) Zolpidem Tartrate (Ambien) 10 Mg Tab, 10 MG PO QHS, (Reported) Scheduled PRN Acetaminophen with Codeine (Acetaminophen-Cod #3 Tablet) 1 Tab Tab, 2 TAB PO Q8H PRN for PAIN, (Reported) Meclizine HCl (Meclizine HCl) 25 Mg Tablet, 25 MG PO Q8H PRN for DIZZINESS, (Reported) Ondansetron HCl (Ondansetron HCl) 4 Mg Tablet, 4 MG PO Q4H PRN for NAUSEA OR VOMITING, (Reported) Allergies Coded Allergies: pregabalin (Verified Adverse Reaction, Unknown, LEG SWELLING, 07/21/20) Sandra Peace MD Nov 12, 2020 16:40
== END 2020-11-12 10:09 | disposition home or self-care (01) | DRG 420 ==
LOC: M ED 20:43 → M ED INP 23:42 → M ICU 11-10 00:51 → M MS5PR 11-10 18:13
PROVIDERS: ADMIT Family Medicine; ATTEND Internal Medicine
DX: E10.10 Type 1 diabetes mellitus with ketoacidosis without coma (principal); N17.9 Acute kidney failure, unspecified; J18.9 Pneumonia, unspecified organism; K52.9 Noninfective gastroenteritis and colitis, unspecified; I10 Essential (primary) hypertension; E78.5 Hyperlipidemia, unspecified; F32.9 Major depressive disorder, single episode, unspecified; G47.00 Insomnia, unspecified; Z79.4 Long term (current) use of insulin; M54.5 Low back pain; F17.200 Nicotine dependence, unspecified, uncomplicated; Z79.899 Other long term (current) drug therapy; Z79.82 Long term (current) use of aspirin; Z88.8 Allergy status to other drugs, medicaments and biological substances

== ENCOUNTER → 2020-11-17 | Outpatient (CLI) | payer OTHER ==
[~2020-11-17] MED LIST changes: +FLOR250C PO; +LEVO500T3 PO; +MIDO10TA PO; +RISATAB3 PO
--- NOTE | 2020-11-18 06:53 | REP ---
INDICATION: SOB, LOBAR PNEUMONIA, S/P HOSPITALIZATION COMPARISON: 11/09/2020 TECHNIQUE: PA and lateral. FINDINGS: The mediastinum and cardiac silhouette are normal. The lung atkinson are clear and without acute consolidation, effusion, or pneumothorax. The skeletal structures are intact and normal. IMPRESSION: No acute cardiopulmonary process. <Electronically signed by Neri Acosta > 11/18/20 0649
== END ==
LOC: M WUC 15:57
PROVIDERS: ATTEND Physician Assistant
DX: J18.1 Lobar pneumonia, unspecified organism (principal); R06.02 Shortness of breath

== ENCOUNTER 2021-12-12 08:22 | Inpatient (IN) | payer OTHER ==
[2021-12-12] VITALS (10 sets, daily range): BP systolic 108–144; BP diastolic 56–74
[~2021-12-12] VITALS: Ht 190.5 cm; Wt 90.5 kg
[~2021-12-12 08:22] MED LIST changes: -ACET1TAB16 PO; +ACET300T48 PO; -CYMB60CA3 PO; +CYMB60CA4 PO; -LEVO500T3 PO; +LEVO500T4 PO; -LISI-898 PO; +LISI5TAB11 PO
[2021-12-12] MEDS ORDERED: NS 1,000 ML IV ONE ×5 (08:50→12:55)
[2021-12-12] MEDS ORDERED: MULTIVITAMINS/MINERALS THERAP 1 TAB PO SCH (09:00)
[2021-12-12] MEDS: DULoxetine 30MG CAPSULE (CYMBALTA) PO SCH ×2 (09:00→21:00)
[2021-12-12] MEDS ORDERED: THIAMINE 100 MG TAB PO SCH (09:00)
[2021-12-12] MEDS: PANTOPRAZOLE 40MG VIAL IV SCH (09:00)
[2021-12-12] MEDS ORDERED: FOLIC ACID 1 MG TAB PO SCH (09:00)
[2021-12-12] MEDS: ATORVASTATIN 20 MG TAB PO SCH (09:00)
[2021-12-12] MEDS: ASPIRIN 81MG ENTERIC TABLET PO SCH (09:00)
[2021-12-12 09:02] LABS: VENOUS BASE EXCESS -24.4 (-2.0-2.0); VENOUS HCO3 5.4 MEQ/L (23.0-27.0); VENOUS O2 SATURATION 69.4 % (60.0-80.0); VENOUS PARTIAL PRESSURE CO2 22.4 mmHg (38.0-50.0); VENOUS PARTIAL PRESSURE O2 42.4 mmHg (30.0-50.0); VENOUS PH 7.003 UNITS (7.330-7.430); VENOUS STANDARD HCO3 7.1 MEQ/L; VENOUS TOTAL CO2 6.1 MEQ/L (24.0-28.0)
[2021-12-12 09:21] LABS: BASO % 0.1 % (0.0-1.0); HEMATOCRIT 36.6 % (42.0-52.0); HEMOGLOBIN 11.8 g/dl (13.5-17.5); LYMPH # 0.7 10^3/uL (1.5-5.0); LYMPH % 3.3 % (24.0-44.0); MEAN CORPUSCULAR HEMOGLOBIN 29.5 pg (27.0-33.0); MEAN CORPUSCULAR HGB CONC 32.2 g/dl (32.0-36.5); MEAN CORPUSCULAR VOLUME 91.5 fl (80.0-96.0); MONO # 0.6 10^3/uL (0.0-0.8); MONO % 3.1 % (2.0-8.0); NEUTROPHILS % 91.3 % (36.0-66.0); PLATELET COUNT, AUTOMATED 455 10^3/uL (150-450); WHITE BLOOD COUNT 19.8 10^3/uL (4.0-10.0)
[2021-12-12] MEDS ORDERED: HumuLIN R (REGULAR) INSULIN (NovoLIN R) **100U/ML** PER UNIT IV ONE (09:25)
[2021-12-12] MEDS ORDERED: LORazepam 2 MG TAB PO PRN ×2 (09:25→11:00)
[2021-12-12 09:28] LABS: OSMOLALITY SERUM 348 MOSM/KG (275-295)
[2021-12-12 09:39] LABS: AMPHETAMINES LEVEL URINE NEGATIVE (NEGATIVE); BARBITURATES URINE NEGATIVE (NEGATIVE); BENZODIAZEPINES URINE NEGATIVE (NEGATIVE); CANNABINOIDS URINE NEGATIVE (NEGATIVE); COCAINE METABOLITE URINE NEGATIVE (NEGATIVE); METHADONE URINE NEGATIVE (NEGATIVE); OPIATES URINE NEGATIVE (NEGATIVE); PHENCYCLIDINE URINE NEGATIVE (NEGATIVE)
[2021-12-12 09:39] LABS: ACETONE/KETONE > 46.00 MG/DL (<2.81); ALBUMIN 3.9 GM/DL (3.2-5.2); ALT/SGPT 19 U/L (12-78); BILIRUBIN,DIRECT 0.1 MG/DL (0.0-0.2); BILIRUBIN,TOTAL 0.5 MG/DL (0.2-1.0); ETHYL ALCOHOL (ETHANOL) < 0.003 % (0.000-0.010); LIPASE 76 U/L (73-393); TOTAL PROTEIN 6.7 GM/DL (6.4-8.2)
[2021-12-12 09:52] LABS: RSV AMPLIFICATION NEGATIVE (NEGATIVE)
[2021-12-12 09:58] LABS: MAGNESIUM LEVEL 2.8 MG/DL (1.8-2.4)
[2021-12-12 10:12] LABS: HEMOGLOBIN A1c 12.2 %
[2021-12-12 10:26] LABS: BLOOD UREA NITROGEN 55 MG/DL (7-18); CALCIUM LEVEL 9.1 MG/DL (8.8-10.2); CARBON DIOXIDE LEVEL 7 MEQ/L (21-32); CHLORIDE LEVEL 90 MEQ/L (98-107); CREATININE FOR GFR 1.79 MG/DL (0.70-1.30); GLOMERULAR FILTRATION RATE 41.4 (>49); GLUCOSE, FASTING 919 MG/DL (70-100); POTASSIUM SERUM 5.1 MEQ/L (3.5-5.1); SODIUM LEVEL 125 MEQ/L (136-145)
[2021-12-12] MEDS ORDERED: ISOVUE-370 76% 100ML VIAL As Ordered ONE (10:42)
[2021-12-12] MEDS ORDERED: KCL 20MEQ IN 0.45NS 1000ML 1,000 ML IV SCH (10:55)
[2021-12-12] MEDS: INSULIN REGULAR IN 0.9 % NACL 100 UNIT in IV 1 EA IV SCH ×2 (11:24)
[2021-12-12] MEDS ORDERED: BASA100I SC (12:13)
[2021-12-12] MEDS ORDERED: HOME MED LIST COMPLETE! XX SCH (12:20)
[2021-12-12 12:27] LABS: VENOUS BASE EXCESS -22.1 (-2.0-2.0); VENOUS HCO3 5.1 MEQ/L (23.0-27.0); VENOUS O2 SATURATION 98.9 % (60.0-80.0); VENOUS PARTIAL PRESSURE CO2 15.9 mmHg (38.0-50.0); VENOUS PARTIAL PRESSURE O2 207.5 mmHg (30.0-50.0); VENOUS PH 7.123 UNITS (7.330-7.430); VENOUS STANDARD HCO3 8.5 MEQ/L; VENOUS TOTAL CO2 5.6 MEQ/L (24.0-28.0)
[2021-12-12 12:57] LABS: CALCIUM LEVEL 8.3 MG/DL (8.8-10.2); CREATININE FOR GFR 1.6 MG/DL (0.70-1.30); GLOMERULAR FILTRATION RATE 47.2 (>49); POTASSIUM SERUM 3.6 MEQ/L (3.5-5.1)
[2021-12-12 13:12] LABS: INR 1.05; PROTHROMBIN TIME 14.1 SECONDS (12.7-14.5)
[2021-12-12 13:13] LABS: PARTIAL THROMBOPLASTIN TIME 29.6 SECONDS (25.9-37.0)
[2021-12-12 13:13] LABS: CK-MB VALUE MASS 4.2 NG/ML (<3.6); MB/CK RELATIVE INDEX 1.83 (< OR =4)
[2021-12-12 14:34] LABS: VENOUS BASE EXCESS -15.3 (-2.0-2.0); VENOUS O2 SATURATION 95.1 % (60.0-80.0); VENOUS PARTIAL PRESSURE CO2 27.7 mmHg (38.0-50.0); VENOUS PH 7.217 UNITS (7.330-7.430); VENOUS STANDARD HCO3 12.7 MEQ/L; VENOUS TOTAL CO2 11.9 MEQ/L (24.0-28.0)
[2021-12-12 15:00] LABS: CALCIUM LEVEL 8.6 MG/DL (8.8-10.2); CREATININE FOR GFR 1.3 MG/DL (0.70-1.30); GLOMERULAR FILTRATION RATE 59.9 (>49); PHOSPHORUS LEVEL 1.9 MG/DL (2.5-4.9); POTASSIUM SERUM 3.8 MEQ/L (3.5-5.1)
[2021-12-12] MEDS: INSULIN IV RATE CHANGE DOCUMENTATION ML/HR XX SCH ×7 (15:00→22:18)
[2021-12-12] MEDS ORDERED: REMDESIVIR 200 MG in NS 250 ML IV ONE (15:00)
[2021-12-12] MEDS: HEPARIN SOD (PORCINE) 5000UNITS/ML 1ML VIAL/SYRINGE SQ SCH ×2 (15:06→22:03)
[2021-12-12] MEDS ORDERED: KCL 20MEQ IN D5/.45NACL 1000ML As Ordered ONE (15:20)
[2021-12-12] MEDS: KCL 20MEQ IN D5/0.45NS 1000ML 1,000 ML IV SCH ×2 (15:32→23:56)
[2021-12-12] MEDS ORDERED: POTASSIUM PHOSPHATE INJ 20 MMOL in D5W 250 ML IV ONE (17:00)
[2021-12-12] MEDS ORDERED: SODIUM CHLORIDE 0.9% INJ 10 ML SYR IV ONE (17:00)
[2021-12-12 19:00] LABS: VENOUS BASE EXCESS -11.7 (-2.0-2.0); VENOUS HCO3 14.1 MEQ/L (23.0-27.0); VENOUS O2 SATURATION 94.6 % (60.0-80.0); VENOUS PARTIAL PRESSURE CO2 31.6 mmHg (38.0-50.0); VENOUS PARTIAL PRESSURE O2 73.1 mmHg (30.0-50.0); VENOUS PH 7.267 UNITS (7.330-7.430); VENOUS STANDARD HCO3 15.2 MEQ/L; VENOUS TOTAL CO2 15.1 MEQ/L (24.0-28.0)
[2021-12-12 19:28] LABS: BLOOD UREA NITROGEN 36 MG/DL (7-18); CALCIUM LEVEL 8.7 MG/DL (8.8-10.2); CARBON DIOXIDE LEVEL 17 MEQ/L (21-32); CHLORIDE LEVEL 115 MEQ/L (98-107); CREATININE FOR GFR 1.12 MG/DL (0.70-1.30); GLOMERULAR FILTRATION RATE > 60.0 (>49); GLUCOSE, FASTING 151 MG/DL (70-100); MAGNESIUM LEVEL 2.3 MG/DL (1.8-2.4); PHOSPHORUS LEVEL 1.3 MG/DL (2.5-4.9); POTASSIUM SERUM 3.8 MEQ/L (3.5-5.1); SODIUM LEVEL 142 MEQ/L (136-145)
[2021-12-12] MEDS ORDERED: NEUTRA-PHOS 1.5 GM PACKET PO ONE (20:25)
[2021-12-12] MEDS ORDERED: ONDANSETRON 4MG/2ML VIAL IV PRN (20:30)
[2021-12-12 20:47] LABS: CREATININE,RANDOM URINE 25.5 MG/DL
[2021-12-12] MEDS: THIAMINE 100 MG TAB PO SCH (21:00)
[2021-12-12] MEDS ORDERED: MORPHINE 4 MG/ML 1ML VIAL/SYRINGE IV ONE (22:20)
[2021-12-12 22:45] LABS: VENOUS BASE EXCESS -9.5 (-2.0-2.0); VENOUS HCO3 15.9 MEQ/L (23.0-27.0); VENOUS O2 SATURATION 98.7 % (60.0-80.0); VENOUS PARTIAL PRESSURE CO2 32.9 mmHg (38.0-50.0); VENOUS PARTIAL PRESSURE O2 166.1 mmHg (30.0-50.0); VENOUS PH 7.301 UNITS (7.330-7.430); VENOUS STANDARD HCO3 16.8 MEQ/L; VENOUS TOTAL CO2 16.9 MEQ/L (24.0-28.0)
[2021-12-12 22:49] LABS: BASO % 0.1 % (0.0-1.0); HEMATOCRIT 27.1 % (42.0-52.0); LYMPH # 0.7 10^3/uL (1.5-5.0); LYMPH % 5.2 % (24.0-44.0); MEAN CORPUSCULAR HEMOGLOBIN 29.5 pg (27.0-33.0); MEAN CORPUSCULAR HGB CONC 35.4 g/dl (32.0-36.5); MEAN CORPUSCULAR VOLUME 83.4 fl (80.0-96.0); MONO % 6.8 % (2.0-8.0); NEUTROPHILS # 12.3 10^3/uL (1.5-8.5); NEUTROPHILS % 87.3 % (36.0-66.0); RED BLOOD COUNT 3.25 10^6/uL (4.30-6.10)
[2021-12-12 22:52] LABS: HEMOGLOBIN 9.6 g/dl (13.5-17.5); PLATELET COUNT, AUTOMATED 336 10^3/uL (150-450)
[2021-12-12 23:32] LABS: BLOOD UREA NITROGEN 33 MG/DL (7-18); CARBON DIOXIDE LEVEL 19 MEQ/L (21-32); CHLORIDE LEVEL 114 MEQ/L (98-107); CREATININE FOR GFR 0.97 MG/DL (0.70-1.30); GLOMERULAR FILTRATION RATE > 60.0 (>49); GLUCOSE, FASTING 172 MG/DL (70-100); MAGNESIUM LEVEL 2.2 MG/DL (1.8-2.4); POTASSIUM SERUM 3.9 MEQ/L (3.5-5.1); SODIUM LEVEL 141 MEQ/L (136-145)
[2021-12-12 23:54] LABS: PHOSPHORUS LEVEL 1.7 MG/DL (2.5-4.9)
[2021-12-13] VITALS (11 sets, daily range): BP systolic 116–162; BP diastolic 61–91
[2021-12-13] MEDS ORDERED: POTASSIUM PHOSPHATE INJ 30 MMOL in D5W 500 ML IV ONE (00:30)
[2021-12-13] MEDS: INSULIN IV RATE CHANGE DOCUMENTATION ML/HR XX SCH ×14 (01:09→23:57)
[2021-12-13 03:06] LABS: VENOUS BASE EXCESS -7.2 (-2.0-2.0); VENOUS HCO3 17.1 MEQ/L (23.0-27.0); VENOUS O2 SATURATION 98.9 % (60.0-80.0); VENOUS PARTIAL PRESSURE CO2 30.2 mmHg (38.0-50.0); VENOUS PARTIAL PRESSURE O2 190.1 mmHg (30.0-50.0); VENOUS PH 7.371 UNITS (7.330-7.430); VENOUS STANDARD HCO3 18.6 MEQ/L
[2021-12-13 03:47] LABS: BLOOD UREA NITROGEN 29 MG/DL (7-18); CALCIUM LEVEL 8.1 MG/DL (8.8-10.2); CARBON DIOXIDE LEVEL 18 MEQ/L (21-32); CHLORIDE LEVEL 115 MEQ/L (98-107); CREATININE FOR GFR 0.85 MG/DL (0.70-1.30); GLOMERULAR FILTRATION RATE > 60.0 (>49); GLUCOSE, FASTING 160 MG/DL (70-100); PHOSPHORUS LEVEL 2.1 MG/DL (2.5-4.9); POTASSIUM SERUM 4.1 MEQ/L (3.5-5.1); SODIUM LEVEL 142 MEQ/L (136-145)
[2021-12-13 04:18] LABS: EOS % 0.1 % (0.0-3.0); HEMATOCRIT 25.8 % (42.0-52.0); HEMOGLOBIN 9.2 g/dl (13.5-17.5); LYMPH # 0.8 10^3/uL (1.5-5.0); LYMPH % 6.8 % (24.0-44.0); MEAN CORPUSCULAR HEMOGLOBIN 29.5 pg (27.0-33.0); MEAN CORPUSCULAR HGB CONC 35.7 g/dl (32.0-36.5); MEAN CORPUSCULAR VOLUME 82.7 fl (80.0-96.0); MONO # 0.9 10^3/uL (0.0-0.8); MONO % 7.9 % (2.0-8.0); NEUTROPHILS # 9.4 10^3/uL (1.5-8.5); NEUTROPHILS % 84.6 % (36.0-66.0); PLATELET COUNT, AUTOMATED 318 10^3/uL (150-450); RED BLOOD COUNT 3.12 10^6/uL (4.30-6.10); WHITE BLOOD COUNT 11.2 10^3/uL (4.0-10.0)
[2021-12-13 04:57] LABS: ALT/SGPT 16 U/L (12-78); BILIRUBIN,TOTAL 0.3 MG/DL (0.2-1.0); BLOOD UREA NITROGEN 29 MG/DL (7-18); CALCIUM LEVEL 7.8 MG/DL (8.8-10.2); CARBON DIOXIDE LEVEL 20 MEQ/L (21-32); CHLORIDE LEVEL 113 MEQ/L (98-107); CREATININE FOR GFR 0.83 MG/DL (0.70-1.30); GLOMERULAR FILTRATION RATE > 60.0 (>49); GLUCOSE, FASTING 172 MG/DL (70-100); MAGNESIUM LEVEL 2.1 MG/DL (1.8-2.4); POTASSIUM SERUM 3.9 MEQ/L (3.5-5.1); SODIUM LEVEL 139 MEQ/L (136-145); TOTAL PROTEIN 5.2 GM/DL (6.4-8.2)
[2021-12-13] MEDS ORDERED: DEXTROSE 50% 50 ML SYRINGE IV PRN (05:15)
[2021-12-13] MEDS ORDERED: LEVEMIR (INSULIN DETEMIR) 1 UNITS/0.01ML SC ONE ×2 (05:15→18:35)
[2021-12-13] MEDS ORDERED: GLUCOSE 4GM CHEW TABLET PO PRN (05:15)
[2021-12-13] MEDS ORDERED: GLUCAGON INJ 1MG VIAL SC PRN (05:15)
[2021-12-13] MEDS: ACETAMINOPH W/CODEINE #3 TAB UD PO PRN (05:42)
[2021-12-13] MEDS: HEPARIN SOD (PORCINE) 5000UNITS/ML 1ML VIAL/SYRINGE SQ SCH ×3 (06:07→22:00)
[2021-12-13] MEDS: KCL 20MEQ IN D5/0.45NS 1000ML 1,000 ML IV SCH ×4 (07:08→20:29)
[2021-12-13] MEDS ORDERED: HumaLOG INSULIN (NovoLOG) PER UNIT SC SCH ×2 (07:30→21:00)
[2021-12-13] MEDS: PANTOPRAZOLE 40MG VIAL IV SCH (08:28)
[2021-12-13 08:30] LABS: BLOOD UREA NITROGEN 26 MG/DL (7-18); CARBON DIOXIDE LEVEL 20 MEQ/L (21-32); CHLORIDE LEVEL 114 MEQ/L (98-107); CREATININE FOR GFR 0.85 MG/DL (0.70-1.30); GLOMERULAR FILTRATION RATE > 60.0 (>49); GLUCOSE, FASTING 169 MG/DL (70-100); PHOSPHORUS LEVEL 1.6 MG/DL (2.5-4.9); POTASSIUM SERUM 3.7 MEQ/L (3.5-5.1); SODIUM LEVEL 140 MEQ/L (136-145)
[2021-12-13] MEDS ORDERED: GI COCKTAIL 50ML BTL(HYOSCYAMINE/MAALOX/LIDOCAINE VISCOUS)(1:3:1) PO ONE (11:00)
[2021-12-13] MEDS: MULTIVITAMINS/MINERALS THERAP 1 TAB PO SCH (11:52)
[2021-12-13] MEDS: ASPIRIN 81MG ENTERIC TABLET PO SCH (11:52)
[2021-12-13] MEDS: ATORVASTATIN 20 MG TAB PO SCH (11:52)
[2021-12-13] MEDS: THIAMINE 100 MG TAB PO SCH ×2 (11:52→21:15)
[2021-12-13] MEDS: DULoxetine 30MG CAPSULE (CYMBALTA) PO SCH ×2 (11:53→21:15)
[2021-12-13] MEDS: FOLIC ACID 1 MG TAB PO SCH (11:53)
[2021-12-13] MEDS: REMDESIVIR 100 MG in NS 250 ML IV SCH (14:43)
[2021-12-13] MEDS: INSULIN REGULAR IN 0.9 % NACL 100 UNIT in IV 1 EA IV SCH ×2 (14:49)
[2021-12-13] MEDS ORDERED: SIMETHICONE 80MG CHEW TAB PO PRN (15:10)
[2021-12-13] MEDS: SODIUM CHLORIDE 0.9% INJ 10 ML SYR IV SCH (16:00)
[2021-12-13] MEDS: SUCRALFATE SUSP 1GM/10ML UD PO SCH (17:00)
[2021-12-13] MEDS: HumaLOG INSULIN (NovoLOG) PER UNIT SC SCH (21:00)
[2021-12-13] MEDS: MORPHINE 4 MG/ML 1ML VIAL/SYRINGE IV PRN (21:13)
[2021-12-14] VITALS: BP 143/81
[2021-12-14] MEDS: MORPHINE 4 MG/ML 1ML VIAL/SYRINGE IV PRN ×5 (00:09→23:30)
[2021-12-14] MEDS: SUCRALFATE SUSP 1GM/10ML UD PO SCH ×5 (00:09→20:05)
[2021-12-14] MEDS: INSULIN IV RATE CHANGE DOCUMENTATION ML/HR XX SCH ×5 (03:14→08:10)
[2021-12-14] MEDS: KCL 20MEQ IN D5/0.45NS 1000ML 1,000 ML IV SCH (03:20)
[2021-12-14] MEDS: PANTOPRAZOLE 40MG VIAL IV SCH ×2 (03:20→14:08)
[2021-12-14 04:00] VITALS: BP 146/87
[2021-12-14 04:25] LABS: BASO % 0.2 % (0.0-1.0); EOS % 0.3 % (0.0-3.0); HEMATOCRIT 27.2 % (42.0-52.0); HEMOGLOBIN 9.5 g/dl (13.5-17.5); LYMPH # 1.6 10^3/uL (1.5-5.0); LYMPH % 25.3 % (24.0-44.0); MEAN CORPUSCULAR HEMOGLOBIN 28.7 pg (27.0-33.0); MEAN CORPUSCULAR HGB CONC 34.9 g/dl (32.0-36.5); MEAN CORPUSCULAR VOLUME 82.2 fl (80.0-96.0); MONO # 0.6 10^3/uL (0.0-0.8); MONO % 9.4 % (2.0-8.0); NEUTROPHILS # 4.1 10^3/uL (1.5-8.5); NEUTROPHILS % 64.5 % (36.0-66.0); PLATELET COUNT, AUTOMATED 264 10^3/uL (150-450); RED BLOOD COUNT 3.31 10^6/uL (4.30-6.10); WHITE BLOOD COUNT 6.4 10^3/uL (4.0-10.0)
[2021-12-14 04:54] LABS: ALBUMIN 2.7 GM/DL (3.2-5.2); ALT/SGPT 16 U/L (12-78); BILIRUBIN,TOTAL 0.5 MG/DL (0.2-1.0); BLOOD UREA NITROGEN 12 MG/DL (7-18); CALCIUM LEVEL 7.7 MG/DL (8.8-10.2); CARBON DIOXIDE LEVEL 22 MEQ/L (21-32); CHLORIDE LEVEL 111 MEQ/L (98-107); CREATININE FOR GFR 0.56 MG/DL (0.70-1.30); GLOMERULAR FILTRATION RATE > 60.0 (>49); GLUCOSE, FASTING 172 MG/DL (70-100); POTASSIUM SERUM 3.5 MEQ/L (3.5-5.1); SODIUM LEVEL 137 MEQ/L (136-145)
[2021-12-14] MEDS: HEPARIN SOD (PORCINE) 5000UNITS/ML 1ML VIAL/SYRINGE SQ SCH ×3 (06:44→20:05)
[2021-12-14] MEDS: HumaLOG INSULIN (NovoLOG) PER UNIT SC SCH ×4 (07:08→20:06)
[2021-12-14 08:07] VITALS: BP 178/88
[2021-12-14] MEDS: ATORVASTATIN 20 MG TAB PO SCH (08:08)
[2021-12-14] MEDS: FOLIC ACID 1 MG TAB PO SCH (08:08)
[2021-12-14] MEDS: DULoxetine 30MG CAPSULE (CYMBALTA) PO SCH ×2 (08:08→20:06)
[2021-12-14] MEDS: ASPIRIN 81MG ENTERIC TABLET PO SCH (08:08)
[2021-12-14] MEDS: MULTIVITAMINS/MINERALS THERAP 1 TAB PO SCH (08:08)
[2021-12-14] MEDS: THIAMINE 100 MG TAB PO SCH ×2 (08:08→20:06)
[2021-12-14] MEDS: ACETAMINOPH W/CODEINE #3 TAB UD PO PRN ×3 (08:12→20:36)
[2021-12-14] MEDS ORDERED: LEVEMIR (INSULIN DETEMIR) 1 UNITS/0.01ML SC ONE (09:15)
[2021-12-14 12:27] VITALS: BP 171/92
[2021-12-14] MEDS: REMDESIVIR 100 MG in NS 250 ML IV SCH (14:08)
[2021-12-14] MEDS: SODIUM CHLORIDE 0.9% INJ 10 ML SYR IV SCH (14:09)
[2021-12-14 20:00] VITALS: BP 134/66
[2021-12-15] VITALS: BP 143/84
[2021-12-15] MEDS: MORPHINE 4 MG/ML 1ML VIAL/SYRINGE IV PRN (00:02)
[2021-12-15] MEDS: PANTOPRAZOLE 40MG VIAL IV SCH (00:56)
[2021-12-15 04:00] VITALS: BP 166/88
[2021-12-15 04:16] LABS: BASO % 0.5 % (0.0-1.0); EOS # 0.1 10^3/uL (0.0-0.5); EOS % 1.5 % (0.0-3.0); HEMATOCRIT 29.2 % (42.0-52.0); HEMOGLOBIN 10.3 g/dl (13.5-17.5); LYMPH # 1.6 10^3/uL (1.5-5.0); LYMPH % 38.2 % (24.0-44.0); MEAN CORPUSCULAR HEMOGLOBIN 28.9 pg (27.0-33.0); MEAN CORPUSCULAR HGB CONC 35.3 g/dl (32.0-36.5); MONO # 0.5 10^3/uL (0.0-0.8); MONO % 12.6 % (2.0-8.0); NEUTROPHILS # 1.9 10^3/uL (1.5-8.5); PLATELET COUNT, AUTOMATED 232 10^3/uL (150-450); RED BLOOD COUNT 3.56 10^6/uL (4.30-6.10); WHITE BLOOD COUNT 4.1 10^3/uL (4.0-10.0)
[2021-12-15 04:47] LABS: ALBUMIN 2.9 GM/DL (3.2-5.2); ALT/SGPT 21 U/L (12-78); BILIRUBIN,TOTAL 0.5 MG/DL (0.2-1.0); BLOOD UREA NITROGEN 10 MG/DL (7-18); CALCIUM LEVEL 8.2 MG/DL (8.8-10.2); CARBON DIOXIDE LEVEL 27 MEQ/L (21-32); CHLORIDE LEVEL 109 MEQ/L (98-107); CREATININE FOR GFR 0.42 MG/DL (0.70-1.30); GLOMERULAR FILTRATION RATE > 60.0 (>49); GLUCOSE, FASTING 108 MG/DL (70-100); MAGNESIUM LEVEL 2.3 MG/DL (1.8-2.4); POTASSIUM SERUM 3.5 MEQ/L (3.5-5.1); SODIUM LEVEL 139 MEQ/L (136-145); TOTAL PROTEIN 5.1 GM/DL (6.4-8.2)
[2021-12-15] MEDS: SUCRALFATE SUSP 1GM/10ML UD PO SCH ×2 (05:41→12:00)
[2021-12-15] MEDS: HEPARIN SOD (PORCINE) 5000UNITS/ML 1ML VIAL/SYRINGE SQ SCH (05:42)
[2021-12-15] MEDS: MULTIVITAMINS/MINERALS THERAP 1 TAB PO SCH (07:40)
[2021-12-15] MEDS: FOLIC ACID 1 MG TAB PO SCH (07:40)
[2021-12-15] MEDS: HumaLOG INSULIN (NovoLOG) PER UNIT SC SCH ×2 (07:40→12:00)
[2021-12-15] MEDS: ASPIRIN 81MG ENTERIC TABLET PO SCH (07:40)
[2021-12-15] MEDS: ATORVASTATIN 20 MG TAB PO SCH (07:41)
[2021-12-15] MEDS: DULoxetine 30MG CAPSULE (CYMBALTA) PO SCH (07:41)
[2021-12-15] MEDS: THIAMINE 100 MG TAB PO SCH (07:41)
[2021-12-15] MEDS: ACETAMINOPH W/CODEINE #3 TAB UD PO PRN (07:42)
[2021-12-15] MEDS ORDERED: PANT20TA6 PO (09:59)
[2021-12-15] MEDS ORDERED: SUCR1TA PO (09:59)
[2021-12-15] MEDS ORDERED: MM S100C PO (09:59)
[2021-12-15] MEDS ORDERED: MIRA3350 PO (09:59)
== END 2021-12-15 12:25 | disposition home or self-care (01) | DRG 420 ==
LOC: M ED 08:22 → EDBD 08:22 → M ED INP 11:17 → ENRESERV 12:40 → M ICU 14:47 → M 4MAIN 12-15 08:05
PROVIDERS: ADMIT Internal Medicine; ATTEND Family Medicine
DX: E10.10 Type 1 diabetes mellitus with ketoacidosis without coma (principal); U07.1 COVID-19; N17.9 Acute kidney failure, unspecified; E87.2 Acidosis; I10 Essential (primary) hypertension; E78.5 Hyperlipidemia, unspecified; F10.10 Alcohol abuse, uncomplicated; Z79.4 Long term (current) use of insulin; Z79.82 Long term (current) use of aspirin; Z79.899 Other long term (current) drug therapy; Z88.8 Allergy status to other drugs, medicaments and biological substances; F17.200 Nicotine dependence, unspecified, uncomplicated

== ENCOUNTER → 2022-04-18 | Outpatient (CLI) | payer OTHER ==
[~2022-04-18] MED LIST changes: +LEVO1TAB39 PO; -LEVO500T4 PO; +MIRA3350 PO; +MM S100C PO; +PANT20TA6 PO; +SUCR1TA PO
== END ==
LOC: M RAD 11:12
PROVIDERS: ATTEND Physician Assistant
DX: R07.9 Chest pain, unspecified (principal)

== ENCOUNTER 2022-08-04 12:48 | Emergency (ER) | payer OTHER | END 2022-08-04 16:54 | disposition left against medical advice (07) | LOC: EDBD 12:48 → M ED 12:48 | DX: Z53.21 Procedure and treatment not carried out due to patient leaving prior to being seen by health care provider (principal) ==

== ENCOUNTER 2022-08-14 13:48 | Emergency (ER) | payer OTHER ==
[~2022-08-14] VITALS: Ht 190.5 cm; Wt 79.2 kg
[2022-08-14] MEDS ORDERED: NOVOINJ3 (14:04)
[2022-08-14 16:05] LABS: VENOUS BASE EXCESS -0.4 (-2.0-2.0); VENOUS HCO3 25.9 MEQ/L (23.0-27.0); VENOUS O2 SATURATION 67.8 % (60.0-80.0); VENOUS PARTIAL PRESSURE CO2 49.6 mmHg (38.0-50.0); VENOUS PH 7.336 UNITS (7.330-7.430); VENOUS STANDARD HCO3 23.5 MEQ/L; VENOUS TOTAL CO2 27.4 MEQ/L (24.0-28.0)
[2022-08-14 16:06] LABS: BASO # 0.1 10^3/uL (0.0-0.2); BASO % 0.9 % (0.0-1.0); EOS # 0.1 10^3/uL (0.0-0.5); EOS % 1.9 % (0.0-3.0); HEMATOCRIT 34.5 % (42.0-52.0); HEMOGLOBIN 11.3 g/dl (13.5-17.5); LYMPH # 2.3 10^3/uL (1.5-5.0); LYMPH % 42.4 % (24.0-44.0); MEAN CORPUSCULAR HEMOGLOBIN 28.5 pg (27.0-33.0); MEAN CORPUSCULAR HGB CONC 32.8 g/dl (32.0-36.5); MEAN CORPUSCULAR VOLUME 86.9 fl (80.0-96.0); MONO # 0.5 10^3/uL (0.0-0.8); MONO % 8.8 % (2.0-8.0); NEUTROPHILS # 2.5 10^3/uL (1.5-8.5); NEUTROPHILS % 45.8 % (36.0-66.0); PLATELET COUNT, AUTOMATED 438 10^3/uL (150-450); RED BLOOD COUNT 3.97 10^6/uL (4.30-6.10); WHITE BLOOD COUNT 5.4 10^3/uL (4.0-10.0)
[2022-08-14 17:22] LABS: HEMOGLOBIN A1c 10.5 % (4.0-6.0)
[2022-08-14 19:11] VITALS: BP 146/90
[2022-08-14 19:43] LABS: LIPASE 21 U/L (12-53)
[2022-08-14 19:45] LABS: ALBUMIN 4.3 G/DL (3.2-5.2); ALKALINE PHOSPHATASE 96 U/L (46-116); ALT/SGPT 17 U/L (7.0-40); AST/SGOT 15 U/L (<34); BILIRUBIN,TOTAL 0.4 MG/DL (0.3-1.2); BLOOD UREA NITROGEN 13 MG/DL (9-23); CALCIUM LEVEL 10.2 MG/DL (8.3-10.6); CARBON DIOXIDE LEVEL 28 MMOL/L (20-31); CHLORIDE LEVEL 99 MMOL/L (98-107); CREATININE FOR GFR 0.77 MG/DL (0.70-1.30); GLOMERULAR FILTRATION RATE > 60.0 (>49); GLUCOSE, FASTING 319 MG/DL (74-106); POTASSIUM SERUM 4.9 MMOL/L (3.5-5.1); SODIUM LEVEL 135 MMOL/L (136-145); TOTAL PROTEIN 6.7 G/DL (5.7-8.2)
[2022-08-14] MEDS ORDERED: NS 1,000 ML IV ONE (19:50)
[2022-08-14 21:08] LABS: CK-MB VALUE MASS < 1.0 NG/ML (<3.6)
[2022-08-14 21:10] LABS: CPK CREATINE PHOSPHOKINASE 47 U/L (46-171); MB/CK RELATIVE INDEX 2.12 (< OR =4)
== END 2022-08-14 22:02 | disposition home or self-care (01) ==
LOC: M ED 13:48
DX: E10.65 Type 1 diabetes mellitus with hyperglycemia (principal); I10 Essential (primary) hypertension; E78.5 Hyperlipidemia, unspecified; F17.200 Nicotine dependence, unspecified, uncomplicated; F12.10 Cannabis abuse, uncomplicated; Z88.8 Allergy status to other drugs, medicaments and biological substances; Z79.82 Long term (current) use of aspirin; Z79.4 Long term (current) use of insulin; Z79.811 Long term (current) use of aromatase inhibitors; Z79.899 Other long term (current) drug therapy

== ENCOUNTER → 2022-08-22 | Outpatient (CLI) | payer OTHER ==
[~2022-08-22] MED LIST changes: +NOVOINJ3
[2022-08-24 14:08] LABS: IgG P18 AB Absent (.); IgG P23 AB Absent (.); IgG P28 AB Absent (.); IgG P30 AB Absent (.); IgG P39 AB Absent (.); IgG P41 AB Absent (.); IgG P45 AB Absent (.); IgG P66 AB Absent (.); IgG P93 AB Absent (.); IgM P23 AB Absent (.); IgM P39 AB Absent (.); IgM P41 AB Absent (.); LYME IgG WB INTERPRETATION Negative (.); LYME IgM WB INTERPRETATION Negative (.)
== END ==
LOC: M WUC 13:52
PROVIDERS: ATTEND Physician Assistant
DX: S30.861A Insect bite (nonvenomous) of abdominal wall, initial encounter (principal); X58.XXXA Exposure to other specified factors, initial encounter; Y92.9 Unspecified place or not applicable

== ENCOUNTER 2022-08-30 20:40 | Emergency (ER) | payer OTHER ==
[~2022-08-30] VITALS: Ht 190.5 cm; Wt 80.2 kg
[2022-08-30 20:41] VITALS: BP 96/56
== END 2022-08-30 23:09 | disposition left against medical advice (07) ==
LOC: M ED 20:40
DX: Z53.21 Procedure and treatment not carried out due to patient leaving prior to being seen by health care provider (principal)

== ENCOUNTER → 2022-09-12 | Outpatient (CLI) | payer OTHER ==
[~2022-09-12] MED LIST changes: +GASTROGRAFIN SOLUTION 30ML As Ordered ONE; +ISOVUE-370 76% 100ML VIAL As Ordered ONE
== END ==
LOC: M RAD 14:25
PROVIDERS: ATTEND Physician Assistant
DX: R10.9 Unspecified abdominal pain (principal)

== ENCOUNTER → 2022-10-18 | Outpatient (REF) | payer OTHER ==
[~2022-10-18] MED LIST changes: -GASTROGRAFIN SOLUTION 30ML As Ordered ONE; -ISOVUE-370 76% 100ML VIAL As Ordered ONE
== END ==
LOC: M LAB REF 11:50
PROVIDERS: ATTEND Internal Medicine Gastroenterology
DX: K31.84 Gastroparesis (principal)

== ENCOUNTER → 2022-10-31 | Outpatient (CLI) | payer OTHER ==
[~2022-10-31] MED LIST changes: +AMIT25TA17 PO; +INSU100I36 SQ
== END ==
LOC: M LABSMTC 10:55
PROVIDERS: ATTEND Anesthesiology
DX: Z20.822 Contact with and (suspected) exposure to COVID-19 (principal)

== ENCOUNTER 2022-11-02 12:27 | Day surgery (SDC) | payer OTHER ==
[~2022-11-02] VITALS: Ht 190.5 cm; Wt 85.7 kg
[~2022-11-02 12:27] MED LIST changes: +NS 1,000 ML IV ONE
[2022-11-02] MEDS ORDERED: ONDA4TAB6 PO (13:51)
[2022-11-02] MEDS ORDERED: fentaNYL 100 MCG/2 ML INJECTION As Ordered ONE ×2 (14:36→14:37)
[2022-11-02] MEDS ORDERED: LIDOCAINE 2% MDV 20ML VIAL As Ordered ONE (14:36)
[2022-11-02] MEDS ORDERED: GLYCOPYRROLATE INJ 0.2 MG/ML 2 ML VIAL As Ordered ONE (14:36)
[2022-11-02] MEDS ORDERED: propofoL 200 MG/20 ML VIAL As Ordered ONE (14:37)
[2022-11-02 15:20] VITALS: BP 118/75
== END 2022-11-02 15:25 | disposition home or self-care (01) ==
LOC: M OPP 12:27
PROVIDERS: ATTEND Internal Medicine Gastroenterology
DX: R10.84 Generalized abdominal pain (principal); R10.13 Epigastric pain; E10.9 Type 1 diabetes mellitus without complications; E78.00 Pure hypercholesterolemia, unspecified; F41.9 Anxiety disorder, unspecified; F17.200 Nicotine dependence, unspecified, uncomplicated; Z79.02 Long term (current) use of antithrombotics/antiplatelets; Z79.4 Long term (current) use of insulin; Z79.82 Long term (current) use of aspirin; Z79.899 Other long term (current) drug therapy; Z86.19 Personal history of other infectious and parasitic diseases; Z80.8 Family history of malignant neoplasm of other organs or systems
CPT/HCPCS: 43235; J3010

== ENCOUNTER → 2022-12-04 | Outpatient (CLI) | payer OTHER ==
[~2022-12-04] MED LIST changes: -NS 1,000 ML IV ONE; +ONDA4TAB6 PO
== END ==
LOC: M WUC 15:20
PROVIDERS: ATTEND Physician Assistant
DX: M54.2 Cervicalgia (principal); M25.552 Pain in left hip; M47.812 Spondylosis without myelopathy or radiculopathy, cervical region; M16.0 Bilateral primary osteoarthritis of hip; M19.011 Primary osteoarthritis, right shoulder; M19.012 Primary osteoarthritis, left shoulder

== ENCOUNTER → 2022-12-06 | Outpatient (CLI) | payer OTHER ==
[2022-12-06 17:19] LABS: HEMOGLOBIN A1c 10.6 % (4.0-6.0)
[2022-12-06 17:29] LABS: ALBUMIN 4.3 G/DL (3.2-5.2); ALKALINE PHOSPHATASE 74 U/L (46-116); ALT/SGPT 15 U/L (7.0-40); AST/SGOT 11 U/L (<34); BILIRUBIN,TOTAL 0.4 MG/DL (0.3-1.2); BLOOD UREA NITROGEN 15 MG/DL (9-23); CALCIUM LEVEL 9.6 MG/DL (8.3-10.6); CARBON DIOXIDE LEVEL 28 MMOL/L (20-31); CHLORIDE LEVEL 104 MMOL/L (98-107); CHOLESTEROL LEVEL 156 MG/DL (<200); CHOLESTEROL RISK RATIO 3.04 (<5); CREATININE FOR GFR 0.86 MG/DL (0.70-1.30); GLOMERULAR FILTRATION RATE > 60.0 (>49); GLUCOSE, FASTING 257 MG/DL (74-106); HDL CHOLESTEROL 51.2 MG/DL (>40); LDL CHOLESTEROL 90.4 MG/DL (<100); NON-HDL-C 104.8 MG/DL; POTASSIUM SERUM 4.6 MMOL/L (3.5-5.1); SODIUM LEVEL 135 MMOL/L (136-145); TOTAL PROTEIN 6.5 G/DL (5.7-8.2); TRIGLYCERIDES LEVEL 72 MG/DL (<150)
== END ==
LOC: M WUC 12:58
PROVIDERS: ATTEND Physician Assistant
DX: E10.65 Type 1 diabetes mellitus with hyperglycemia (principal); E78.2 Mixed hyperlipidemia

== ENCOUNTER → 2023-01-11 | Outpatient (CLI) | payer OTHER | LOC: M RAD 09:14 | PROVIDERS: ATTEND Internal Medicine Gastroenterology | DX: R10.84 Generalized abdominal pain (principal) ==

== ENCOUNTER → 2023-04-18 | Outpatient (CLI) | payer OTHER ==
[~2023-04-18] MED LIST changes: -AMIT25TA17 PO; +AMIT25TA19 PO; +MECL-209 PO; -MECL1TAB31 PO
== END ==
LOC: M RAD 15:05
PROVIDERS: ATTEND Internal Medicine Gastroenterology
DX: K82.8 Other specified diseases of gallbladder (principal)
CPT/HCPCS: 78227; A9537